=== PATIENT | male | born 1945 | race Caucasian/White ===

== ENCOUNTER 2020-03-26 14:31 | Outpatient (CLI) | payer OTHER, SELFPAY ==
--- NOTE | ~2020-03-26 | XR_ITS ---
EXAMINATION: XR chest 2V DATE: 03/26/2020 14:46 INDICATION: Shortness of breath. TECHNIQUE: Frontal and lateral views of the chest were obtained. COMPARISON: Chest single view 08/18/2019, chest CT 11/18/2018, 05/09/2018 FINDINGS: There is chronic marked elevation of right hemidiaphragm. There are airspace opacities at r ight lung base. Calcified bilateral lung nodules and calcified hilar lymph nodes are consistent with old granulomatous disease. There is a small right pleural effusion. No pneumothorax. The heart size i s normal. IMPRESSION: 1. Chronic marked elevation of right hemidiaphragm. 2. Airspace opacities at right lung base, consistent with atelectasis versus pneumonia. 3. Small right pleural effusion. Reviewed, dictated and finalized at location A. IMPRESSION: 1. Chronic marked elevation of right hemidiaphragm. 2. Airspace opacities at right lung base, consistent with atelectasis versus pn eumonia. 3. Small right pleural effusion.
== END 2020-03-26 14:32 | disposition home or self-care (01) ==
PROVIDERS: PCP Emergency Medicine; Visit Provider Nurse Practitioner Family
DX: R06.02 Shortness of breath (principal); R91.8 Other nonspecific abnormal finding of lung field; J90 Pleural effusion, not elsewhere classified
CPT/HCPCS: 71046

== ENCOUNTER 2020-04-23 16:00 | Outpatient (CLI) | payer OTHER, SELFPAY ==
--- NOTE | ~2020-04-23 | US_ITS ---
EXAMINATION: US art doppler w press LE BI DATE: 04/23/2020 17:02 INDICATION: Peripheral arterial disease. TECHNIQUE: Segmental pressures and plethysmographic and Doppler waveforms of the brachial and lower e xtremity arteries were obtained. COMPARISON: ABIs 11/15/2016 FINDINGS: Right and left brachial artery pressures of 119 mm Hg and 111 mm Hg, respectively, are concordant (no rmal difference <= 30 mmHg). 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 The left high-thigh pressure index is 1.17 (normal > 1. 2). The left ankle-brachial index (BAMBI) is 0.91 (normal >= 0.9-1.0). The left great toe-brachial inde x (TBI) is 0.61 (normal >= 0.65). The left lower extremity segmental pressure gradients are normal (n ormal gradients <= 20-30 mmHg between adjacent levels on the same leg or the same levels on the two l egs). Arterial Doppler waveforms are at least triphasic in common femoral artery, biphasic in superfi cial femoral artery, at least triphasic in popliteal artery, and biphasic at the ankle. IMPRESSION: 1. Mildly decreased left BAMBI and TBI, consistent with arterial occlusive disease. 2. Right above-knee amputation. Reviewed, dictated and finalized at location A. IMPRESSION: 1. Mildly decreased left BAMBI and TBI, consistent with arterial occlusive diseas e. 2. Right above-knee amputation.
== END 2020-04-23 16:01 | disposition home or self-care (01) ==
PROVIDERS: PCP Emergency Medicine; Visit Provider Emergency Medicine
DX: M79.89 Other specified soft tissue disorders (principal)
CPT/HCPCS: 93923

== ENCOUNTER 2020-05-03 16:29 | Outpatient (CLI) | payer OTHER, SELFPAY ==
--- NOTE | ~2020-05-03 | XR_ITS ---
XR chest 2V 05/03/2020 16:45 Indication: Shortness of breath. Cough. COPD. Procedure: AP and lateral views of the chest Comparison: Comparison to multiple prior studies sequentially, with oldest reviewed study dated 12/26. Findings: There is chronic elevation of the right diaphragm. Cardiomediastinal silhouette is stable. There is evidence for chronic granulomatous disease. No acute focal pneumonia, edema or effusion. The re is atherosclerosis. Impression: 1: No acute cardiopulmonary disease. Reviewed, dictated and finalized at location A. Impression: 1: No acute cardiopulmonary disease.
== END 2020-05-03 16:30 | disposition home or self-care (01) ==
PROVIDERS: PCP Emergency Medicine; Visit Provider Nurse Practitioner Family
DX: R06.02 Shortness of breath (principal); R05 Cough
CPT/HCPCS: 71046

== ENCOUNTER 2020-06-03 13:22 | Outpatient (CLI) | payer OTHER, SELFPAY | END 2020-06-03 13:23 | disposition home or self-care (01) | LOC: ANHLAB 13:24 | PROVIDERS: PCP Emergency Medicine; Visit Provider Emergency Medicine | DX: D64.9 Anemia, unspecified (principal) | CPT/HCPCS: 36415; 86850; 86900; 86901 ==

== ENCOUNTER 2020-06-09 07:51 | Outpatient (RCR) | payer OTHER, SELFPAY ==
[2020-06-09] VITALS (10 sets, daily range): BP systolic 137–188; BP diastolic 72–83; PULSE 77–90; RESP 13–18; TEMP 36.3–36.8; O2SAT 93–100
[2020-06-09 08:16] LABS: Hematocrit 27.4 % (42.0-52.0); Hemoglobin 7.7 g/dL (14.0-18.0)
[2020-06-09] MEDS: diphenhydrAMINE HCl CAP 25 MG CAPSULE PO (09:30)
[2020-06-09] MEDS: FUROSEMIDE INJ 40 MG/4 ML VIAL 20 MG IV PUSH ×2 (12:25→15:05)
== END 2020-09-07 23:59 | disposition home or self-care (01) ==
LOC: ANHCPCTRAN 07:51
PROVIDERS: PCP Emergency Medicine; Visit Provider Emergency Medicine
DX: D64.9 Anemia, unspecified (principal)
CPT/HCPCS: 36415; 36430; 85014; 85018; 86850; 86900; 86901; 86923; 96374; A9270; J1940; P9016

== ENCOUNTER 2020-07-01 17:24 | Emergency (ER) | payer OTHER, SELFPAY ==
--- NOTE | ~2020-07-01 | XR_ITS ---
EXAMINATION: XR chest 1V portable INDICATION: Pain after fall TECHNIQUE: Portable AP chest at 1837 hours COMPARISON: 05/03/2020 FINDINGS: Calcified pulmonary nodules are consistent with old granulomatous disease. There is chronic elevation of the right hemidiaphragm. There is subsegmental atelectasis of the right lung base. No p leural effusion or pneumothorax is identified. The cardiomediastinal silhouette is normal. IMPRESSION: 1. No acute cardiopulmonary abnormality. Reviewed, dictated and finalized at location A.
--- NOTE | ~2020-07-01 | XR_ITS ---
EXAMINATION: XR hip RT 2V w AP pelvis INDICATION: Right hip pain TECHNIQUE: AP view of the pelvis and two views of the right hip are obtained. COMPARISON: None available FINDINGS: Bone alignment is normal. There is no fracture. Soft tissue swelling overlies the right hip . There is extensive calcified atherosclerosis. A vascular stent is noted in the left common iliac ar mehul. IMPRESSION: 1. No acute osseous abnormality. Reviewed, dictated and finalized at location A.
--- NOTE | ~2020-07-01 | CT_ITS ---
EXAMINATION: CT cervical spine wo con DATE: 07/01/2020 18:32 INDICATION: Neck pain TECHNIQUE: Computed tomography (CT) of the cervical spine was performed without intravenous contrast. The dose-length product (DLP) was 347.17 mGy-cm. Automated exposure control and iterative reconstruc tion technique were employed. COMPARISON: 11/15/2016 FINDINGS: There has been interval development of 2 mm of retrolisthesis of C2 on C3, 2 mm of anteroli sthesis of C3 on C4, and 5 mm of anterolisthesis of C4 on C5. There is chronic, severe loss of interv ertebral disc space height at C6-7. Moderate loss of intervertebral disc space height at C4-5 and C5- 6 demonstrates interval worsening. No fracture is identified. The vertebral body heights are maintain ed. There are 32 degrees of cervical levoscoliosis with asymmetric loss of intervertebral disc space height on the right at multiple levels. There is advanced facet osteoarthritis on the right at C3-4 a nd C4-5. Moderate uncovertebral joint osteoarthritis is present at multiple levels. There is moderate emphysema. A 1.4 cm fluid density of the right upper back likely reflects a sebaceous cyst. IMPRESSION: 1. No fracture identified. 2. Significant interval worsening of cervical spondylosis with likely degenerative subluxations of th e upper cervical spine. Reviewed, dictated and finalized at location A. IMPRESSION: 1. No fracture identified. 2. Significant interval worsening of cervical spondylosis with likely degenerat mervin subluxations of the upper cervical spine.
--- NOTE | ~2020-07-01 | CT_ITS ---
EXAMINATION: CT brain wo con INDICATION: Head injury COMPARISON: 12/24/2018 TECHNIQUE: Standard unenhanced head CT. The dose-length product (DLP) was 681.00 mGy-cm. The mA was a djusted according to patient size. Iterative reconstruction technique was employed. FINDINGS: There is no acute intraparenchymal hemorrhage. No evidence of mass lesion. No evidence of a cute infarction. There is mild periventricular and subcortical hypodensity probably related to small vessel ischemic disease. There is moderate prominence of the sulci and ventricles related to cerebral atrophy. Intracranial calcified cerebral atherosclerosis is noted. There are no extra-axial collecti ons. There is no mass effect or midline shift. Changes in the globes are likely from ocular lens surg [place]. There is mild mucosal thickening of the paranasal sinuses. IMPRESSION: 1. No acute intracranial abnormality. 2. Age related findings. Reviewed, dictated and finalized at location A.
[2020-07-01 17:30] VITALS: BP 156/72; PULSE 81; RESP 17; TEMP 36.8; O2SAT 98
--- NOTE | 2020-07-01 17:46 | ECG_ITS ---
Measurements Intervals [place] Rate: 72 P: 17 MT: 128 QRS: 41 QRSD: 102 T: 70 QT: 421 QTc: 462 Interpretive Statements SINUS RHYTHM BORDERLINE ST-T WAVE ABNORMALITY- HIGH LATERAL LEADS BASELINE ARTIFACT- I, II, III, AVR, AVL, AVF, V1-V6 BORDERLINE ECG Electronically Signed On 07-01-2020 18:48:29 CDT by Pierre Craven D.O.
--- NOTE | 2020-07-01 17:58 | ED.GENADULT ---
HPI - General Adult General Chief complaint: Extremity Injury, Lower Stated complaint: fall Time Seen by Provider: 07/01/20 17:29 Source: patient and family Mode of arrival: ambulatory Limitations: altered mental status History of Present Illness HPI narrative: Patient is a 75-year-old male who presents to emergency department for evaluation of fall out of his wheelchair presenting with large hematoma to the right hip patient on arrival is alert and oriented to person and place but is confused as to the year and month. Patient presents with who notes that he has been having some more confusion of late had some recent medication changes by neurology at [facility] who thought maybe it was contributing to his confusion. Patient also had recent transfusion for unknown reason. Patient on arrival to emergency department notes only right hip pain. Patient's did give him a Xanax today and notes that he has been sleeping throughout the day off and on and had difficulty sleeping at night of late. Family denies any vomiting diarrhea or urinary symptoms but does note that the athlete marketing agent called and an antibiotic for a cough on Sunday. Related Data Home Medications Medication Instructions Recorded Confirmed acetaminophen 325 mg capsule 325 mg PO Q6H PRN 08/26/19 03/26/20 albuterol sulfate 90 mcg/actuation 1 inhalation INHALATION Q4H 08/26/19 03/26/20 aerosol inhaler ascorbic acid (vitamin C) 500 mg mg PO 08/26/19 03/26/20 capsule cholecalciferol (vitamin D3) 50 2,000 unit PO DAILY 08/26/19 03/26/20 mcg (2,000 unit) tablet ferrous sulfate 324 mg (65 mg 324 mg PO BID 08/26/19 03/26/20 iron) tablet,delayed release multivitamin with iron 1 tablet PO DAILY 08/26/19 03/26/20 zinc gluconate 50 mg tablet 50 mg PO DAILY 08/26/19 03/26/20 albuterol sulfate See Rx Instructions .ROUTE .COMPLEX 10/15/19 03/26/20 guaifenesin 600 mg tablet, 600 mg PO BID 11/28/19 03/26/20 extended release 12 hr Allergies Allergy/AdvReac Type Severity Reaction Status Date / Time morphine AdvReac Severe HALLUCINATIONS, Verified 07/01/20 17:29 AGITATED Review of Systems Review of Systems: All systems reviewed & are unremarkable except as noted in HPI and below PMFSH Past Medical History Medical History Amputation of right lower extremity below knee COPD (chronic obstructive pulmonary disease) History of right inguinal hernia HLD (hyperlipidemia) HTN (hypertension) Surgical History Surgical History History of hernia repair Social History Social History Smoking packs per day: 1 Smoking cigarettes per day: 20.0 Years smoked: 55 Smoking pack-years: 55.00 Smoking status: Former smoker Tobacco type: cigarettes Second hand tobacco smoke exposure: No Smoking end date: 12/06/16 Alcohol intake: current Gender identity (if verbalized by the patient): Male Exam Narrative: Exam Narrative: GENERAL: Well-appearing, well-nourished, and in no acute distress. HEAD: Normocephalic, atraumatic. EYES: PERRLA and EOMI. ENT: Nares clear, no rhinorrhea or epistaxis. Mucous membranes moist. Oropharynx without tonsillar hypertrophy exudate or other lesions. NECK: Supple. No adenopathy or masses. CHEST: Clear to auscultation. No respiratory distress. No wheezes rales or rhonchi HEART: Regular rate and rhythm. No murmur heard. Normal peripheral pulses. ABDOMEN: Soft, nontender, nondistended EXTREMITIES: Normal range of motion. No edema. Hematoma to the right hip which is moderate size. No cervical thoracic or lumbar tenderness. SKIN: Warm, dry, no rash. NEURO: No focal deficits cranial nerves II through XII grossly intact PSYCH: Normal mood and affect. Course Course Emergency Course: Patient in the room at this time resting comfortably alert and
[2020-07-01 18:16] LABS: Basophils Absolute Auto 0.1 K/mm3 (0.0-0.1); Basophils Percent Auto 1.1 % (0.2-1.2); Eosinophils Absolute Auto 0.4 K/mm3 (0-0.3); Eosinophils Percent Auto 4.6 % (0-4.4); Hematocrit 38.1 % (42.0-52.0); Hemoglobin 11.6 g/dL (14.0-18.0); Immature Granulocyte Absolute 0.05 K/mm3 (0.00-0.031); Immature Granulocyte Percent A 0.5 % (0-0.5); Lymphocytes Absolute Auto 1.45 K/mm3 (0.9-3.2); Lymphocytes Percent Auto 15.4 % (18.3-44.2); Mean Corpuscular HGB Conc 30.4 g/dl (32-36); Mean Corpuscular Hemoglobin 25.4 pg (26-34); Mean Corpuscular Volume 83.4 fl (80-100); Mean Platelet Volume 12.3 fl (7.4-10.4); Monocytes Absolute Auto 0.8 K/mm3 (0.1-0.6); Monocytes Percent Auto 8.4 % (2.6-8.5); Neutrophils Absolute Auto 6.6 K/mm3 (1.3-6.7); Platelet Count Result 376 k/mm3 (150-375); Red Blood Count 4.57 M/mm3 (4.6-6.20); Red Cell Distribution Width 21.2 % (11.5-14.5); White Blood Count 9.4 K/mm3 (4.5-10.0)
[2020-07-01 18:20] LABS: Add Urine Microscopic? YES; Appearance Urine Clear (Clear); Bilirubin Urine Negative (Negative); Blood Urine Negative (Negative); Color Urine Yellow (Yellow); Glucose Urine UA Negative (Negative); Ketones Urine Negative (Negative); Leukocyte Esterase Ur Negative LEU/UL (Negative); Mucus Urine Rare /lpf; Nitrate Urine Negative (Negative); Protein Urine Negative (Negative); RBC Urine 0-2 /hpf (0-2); Specific Grav Ur 1.012 (1.001-1.035); Squamous Epithelial Cell Urine Rare /hpf (Few); Urobilinogen Urine Negative mg/dL (<2.0); WBC Urine 0-3 /hpf
[2020-07-01] MEDS: SODIUM CHLORIDE 0.9% IV 500 ML 999 ML IV CONT (18:20)
[2020-07-01 18:25] LABS: INR 1.1; Prothrombin Time 13.5 Seconds (11.1-14.7)
[2020-07-01 18:26] LABS: Partial Thromboplastin Time 29.7 SECONDS (22.3-36.8)
[2020-07-01 18:29] LABS: Lactic Acid Reflex 0.7 mmol/L (0.7-2.1)
[2020-07-01 18:34] LABS: Alanine Aminotransferase 20 U/L (4-50); Albumin Level 3.8 g/dL (3.5-5.1); Alkaline Phosphatase 76 U/L (38-126); Anion Gap 3 mmol/L (8-16); Aspartate Amino Transferase 26 U/L (17-59); Bilirubin,Total 0.2 mg/dL (0.2-1.3); Blood Urea Nitrogen 8 mg/dL (9-20); CRP < 0.5 mg/dL (<1.0); Calcium 9.7 mg/dL (8.4-10.2); Carbon Dioxide 28 mmol/L (22-30); Chloride 103 mmol/L (98-107); Estimated CRCL calculation 61 ml/min; Estimated Glomerular Filt Rate > 60; Glucose 91 mg/dL (75-110); Lipase 53 U/L (23-300); Potassium 3.8 mmol/L (3.4-5.0); Sodium 134 mmol/L (137-145)
[2020-07-01 18:41] LABS: Troponin I < 0.012 ng/mL (0.000-0.034)
[2020-07-01 18:57] VITALS: BP 136/88; PULSE 74; RESP 17; O2SAT 99
[2020-07-01 20:29] VITALS: BP 138/84; PULSE 92; RESP 16; O2SAT 97
== END 2020-07-01 21:41 | disposition home or self-care (01) ==
PROVIDERS: Emergency Medicine Emergency Medical Services; Emergency Provider Emergency Medicine; PCP Emergency Medicine
DX: S70.01XA Contusion of right hip, initial encounter (principal); J44.9 Chronic obstructive pulmonary disease, unspecified; E78.5 Hyperlipidemia, unspecified; I10 Essential (primary) hypertension; Z89.511 Acquired absence of right leg below knee; Z87.891 Personal history of nicotine dependence; W05.0XXA Fall from non-moving wheelchair, initial encounter
CPT/HCPCS: 36415; 51701; 70450; 71045; 72125; 73502; 80053; 81001; 83605; 83690; 84484; 85025; 85610; 85730; 86140; 87040; 93005; 96365; 99284; J0131; J7040

== ENCOUNTER 2020-09-28 14:17 | Emergency (ER) | payer OTHER, SELFPAY ==
[2020-09-28] VITALS (12 sets, daily range): BP systolic 105–185; BP diastolic 32–81; PULSE 62–97; RESP 16–21; TEMP 36.5; O2SAT 94–100
--- NOTE | ~2020-09-28 | US_ITS ---
EXAMINATION:US venous doppler LE LT INDICATION:Left leg swelling TECHNIQUE: Multiple grayscale, color flow and Doppler images of the left lower extremity deep venous systems were obtained and reviewed. COMPARISON:11/22/2016 FINDINGS: The common femoral, superficial femoral and popliteal veins demonstrate normal respiratory variation, augmentation and compressibility. Color flow is also seen within the posterior tibial, gr eater saphenous and profunda veins. Peroneal vein not well visualized. IMPRESSION: 1: No lower extremity deep venous thrombosis. Reviewed, dictated and finalized at location A. COUNSELOR
--- NOTE | ~2020-09-28 | XR_ITS ---
EXAMINATION: XR chest 2V EXAM DATE: 09/28/2020 16:12 INDICATION: Swelling. History of CHF. TECHNIQUE: Frontal and lateral projections of the chest obtained and reviewed. Comparison is made to prior examination from 09/28/2020. FINDINGS: Chronic right hemidiaphragm elevation with adjacent atelectasis. Chronic left basilar gran ulomas. The lungs are otherwise clear. There are no pleural effusions. The cardiomediastinal silhou ette is within normal limits. There is no pneumothorax suspected. The bones and soft tissues are un remarkable. IMPRESSION: Chronic thoracic findings as above. Reviewed, dictated and finalized at location B. ISITION APPROVER
--- NOTE | 2020-09-28 14:41 | ECG_ITS ---
Measurements Intervals [place] Rate: 68 P: 46 WI: 144 QRS: 57 QRSD: 96 T: 72 QT: 405 QTc: 433 Interpretive Statements SINUS RHYTHM BASELINE ARTIFACT- I, II, AVR, AVL, AVF, V4-V6 BORDERLINE ECG Electronically Signed On 09-28-2020 16:17:58 ASSISTANT INFANT TODDLER TEACHER by Pierre Craven D.O.
[2020-09-28 15:09] LABS: Basophils Absolute Auto 0.1 K/mm3 (0.0-0.1); Basophils Percent Auto 1.4 % (0.2-1.2); Eosinophils Absolute Auto 0.3 K/mm3 (0-0.3); Eosinophils Percent Auto 3.6 % (0-4.4); Hemoglobin 11.3 g/dL (14.0-18.0); Immature Granulocyte Absolute 0.03 K/mm3 (0.00-0.031); Immature Granulocyte Percent A 0.3 % (0-0.5); Lymphocytes Absolute Auto 1.66 K/mm3 (0.9-3.2); Lymphocytes Percent Auto 17.4 % (18.3-44.2); Mean Corpuscular HGB Conc 30.5 g/dl (32-36); Mean Corpuscular Hemoglobin 28.1 pg (26-34); Mean Platelet Volume 10.9 fl (7.4-10.4); Monocytes Absolute Auto 1.1 K/mm3 (0.1-0.6); Monocytes Percent Auto 11.3 % (2.6-8.5); Neutrophils Absolute Auto 6.3 K/mm3 (1.3-6.7); Platelet Count Result 350 k/mm3 (150-375); Red Blood Count 4.02 M/mm3 (4.6-6.20); Red Cell Distribution Width 14.8 % (11.5-14.5); White Blood Count 9.6 K/mm3 (4.5-10.0)
[2020-09-28 15:16] LABS: INR 1.1; Prothrombin Time 14.4 Seconds (11.1-14.7)
[2020-09-28 15:17] LABS: Partial Thromboplastin Time 28.6 SECONDS (22.3-36.8)
[2020-09-28 15:18] LABS: Anion Gap 6 mmol/L (8-16); Blood Urea Nitrogen 13 mg/dL (9-20); Carbon Dioxide 30 mmol/L (22-30); Chloride 103 mmol/L (98-107); Estimated CRCL calculation 55 ml/min; Estimated Glomerular Filt Rate > 60; Glucose 92 mg/dL (75-110); Potassium 3.9 mmol/L (3.4-5.0); Sodium 139 mmol/L (137-145)
[2020-09-28 15:31] LABS: NT Pro B Type Natriuretic Pept 63 PG/ML (5-100); Troponin I < 0.012 ng/mL (0.000-0.034)
--- NOTE | 2020-09-28 15:51 | ED.GENADULT ---
HPI - General Adult General Chief complaint: Extremity Problem,Nontraumatic Stated complaint: Swelling L leg Time Seen by Provider: 09/28/20 14:37 Source: patient History of Present Illness HPI narrative: Patient is a 75 y/o complaining of increasing left leg swelling for last 2 weeks. He has previous right AKA. There is no known alleviating or exacerbating factor. He has no chest pain. He has chronic SOB due to COPD. He is on home O2. Related Data Home Medications Medication Instructions Recorded Confirmed acetaminophen 325 mg capsule 325 mg PO Q6H PRN 08/26/19 03/26/20 albuterol sulfate 90 mcg/actuation 1 inhalation INHALATION Q4H 08/26/19 03/26/20 aerosol inhaler ascorbic acid (vitamin C) 500 mg mg PO 08/26/19 03/26/20 capsule cholecalciferol (vitamin D3) 50 2,000 unit PO DAILY 08/26/19 03/26/20 mcg (2,000 unit) tablet ferrous sulfate 324 mg (65 mg 324 mg PO BID 08/26/19 03/26/20 iron) tablet,delayed release multivitamin with iron 1 tablet PO DAILY 08/26/19 03/26/20 zinc gluconate 50 mg tablet 50 mg PO DAILY 08/26/19 03/26/20 albuterol sulfate See Rx Instructions .ROUTE .COMPLEX 10/15/19 03/26/20 olanzapine 2.5 mg PO HS 09/28/20 Allergies Allergy/AdvReac Type Severity Reaction Status Date / Time morphine AdvReac Severe HALLUCINATIONS, Verified 07/01/20 17:29 AGITATED Review of Systems Constitutional: Constitutional: Denies chills, Denies fever(s), Denies headache(s) and Denies weakness Eyes: Eyes: Denies blurry vision ENT: Denies headache(s) and Denies neck pain Cardiovascular: Cardiovascular: Denies chest pain, Reports leg edema and Reports dyspnea Respiratory: Respiratory: Denies cough and Reports dyspnea Gastrointestinal: Gastrointestinal: Denies abdominal pain, Denies diarrhea, Denies nausea and Denies vomiting Genitourinary: Genitourinary: Denies hematuria and Denies dysuria Musculoskeletal: Musculoskeletal: Denies back pain and Denies neck pain Neurologic: Denies headache(s) and Denies weakness [facility] Past Medical History Medical History (Updated 09/28/20 @ 17:58 by Sofía Mendoza MD) Amputation of right lower extremity below knee COPD (chronic obstructive pulmonary disease) History of right inguinal hernia HLD (hyperlipidemia) HTN (hypertension) Surgical History Surgical History History of hernia repair Family History Family History Sibling Colon cancer Father , blood clot Blood clot associated with vein wall inflammation Mother Cerebrovascular accident Diabetes mellitus Peripheral vascular disease Sibling , peripheral vascular disease Peripheral vascular disease Mother Patient's mother is , Onset Age: 74 Diabetes mellitus Father Patient's father is , Onset Age: 76 Sibling Diabetes mellitus Carcinoma of colon Social History Social History Smoking packs per day: 1 Smoking cigarettes per day: 20.0 Years smoked: 55 Smoking pack-years: 55.00 Smoking status: Former smoker Tobacco type: cigarettes Second hand tobacco smoke exposure: No Smoking end date: 12/06/16 Alcohol intake: current Gender identity (if verbalized by the patient): Male Exam Const: General: no acute distress and well developed Orientation/consciousness: oriented to person, oriented to place, oriented to time and patient oriented x3 HENMT: Head: normocephalic Ears: external ears normal General nose exam: Normal external nose present Eyes: General: appearance normal, both eyes and all related structures Conjunctivae: conjunctivae normal Neck: Neck: normal visual inspection and full ROM Chest: Chest palpation & inspection: normal inspection of the chest and no tenderness Resp: Effort & Inspection: normal respiratory effort Auscultati
[2020-09-28] MEDS: FUROSEMIDE INJ 40 MG/4 ML VIAL 20 MG IV PUSH (16:31)
== END 2020-09-28 18:23 | disposition home or self-care (01) ==
PROVIDERS: Emergency Provider Emergency Medicine; PCP Emergency Medicine
DX: M79.89 Other specified soft tissue disorders (principal); J44.9 Chronic obstructive pulmonary disease, unspecified; Z87.891 Personal history of nicotine dependence; I10 Essential (primary) hypertension; E78.5 Hyperlipidemia, unspecified; Z89.511 Acquired absence of right leg below knee
CPT/HCPCS: 36415; 71046; 80048; 83880; 84484; 85025; 85610; 85730; 93005; 93971; 96374; 99284; J1940

== ENCOUNTER 2021-05-02 14:30 | Emergency (ER) | payer OTHER, SELFPAY ==
--- NOTE | 2021-05-02 15:06 | PC.NURSE ---
pt no longer wanted to stay, stated that his nose had stopped bleeding, agreed to return if it started once more.
== END 2021-05-03 05:32 | disposition left against medical advice (07) ==
DX: R04.0 Epistaxis (principal)
CPT/HCPCS: 99199

== ENCOUNTER 2021-06-21 16:05 | Emergency (ER) | payer OTHER, SELFPAY ==
[2021-06-21 16:17] VITALS: BP 88/46; PULSE 97; RESP 16; TEMP 36.2; O2SAT 93
--- NOTE | 2021-06-21 16:58 | ED.GENADULT ---
HPI - General Adult General Chief complaint: Epistaxis Stated complaint: Nose Bleed Time Seen by Provider: 06/21/21 16:24 Source: patient History of Present Illness HPI narrative: Patient is a 76 y/o male complaining of moderate to severe nose bleeding starting 3-4 hours ago. He had large amount of bright red blood from right side. Later the bleeding moved to left side. There is no known alleviating or exacerbating factor. He has no pain. He denies any trauma to nose. He is on Plavix Related Data Home Medications Medication Instructions Recorded Confirmed acetaminophen 325 mg capsule 325 mg PO Q6H PRN 08/26/19 05/06/21 ascorbic acid (vitamin C) 500 mg mg PO 08/26/19 05/06/21 capsule cholecalciferol (vitamin D3) 50 2,000 unit PO DAILY 08/26/19 05/06/21 mcg (2,000 unit) tablet ferrous sulfate 324 mg (65 mg 324 mg PO BID 08/26/19 05/06/21 iron) tablet,delayed release multivitamin with iron 1 tablet PO DAILY 08/26/19 05/06/21 zinc gluconate 50 mg tablet 50 mg PO DAILY 08/26/19 05/06/21 albuterol sulfate See Rx Instructions .ROUTE .COMPLEX 10/15/19 05/06/21 Allergies Allergy/AdvReac Type Severity Reaction Status Date / Time morphine AdvReac Severe HALLUCINATIONS, Verified 06/21/21 16:30 AGITATED Review of Systems Constitutional: Constitutional: Denies chills, Denies fever(s), Denies headache(s) and Denies weakness Eyes: Eyes: Denies blurry vision ENT: Reports as per HPI, Denies headache(s), Reports epistaxis and Denies neck pain Cardiovascular: Cardiovascular: Denies chest pain and Denies dyspnea Respiratory: Respiratory: Denies cough and Denies dyspnea Gastrointestinal: Gastrointestinal: Denies abdominal pain, Denies diarrhea, Denies nausea and Denies vomiting Genitourinary: Genitourinary: Denies hematuria and Denies dysuria Musculoskeletal: Musculoskeletal: Denies back pain and Denies neck pain Neurologic: Denies headache(s) and Denies weakness PMFSH Past Medical History Medical History (Updated 06/21/21 @ 19:57 by Sofía Mendoza MD) Amputation of right lower extremity below knee COPD (chronic obstructive pulmonary disease) History of right inguinal hernia HLD (hyperlipidemia) HTN (hypertension) Surgical History Surgical History History of hernia repair Family History Family History Sibling Colon cancer Father , blood clot Blood clot associated with vein wall inflammation Mother Cerebrovascular accident Diabetes mellitus Peripheral vascular disease Sibling , peripheral vascular disease Peripheral vascular disease Mother Patient's mother is , Onset Age: 74 Diabetes mellitus Father Patient's father is , Onset Age: 76 Sibling Diabetes mellitus Carcinoma of colon Social History Social History Smoking packs per day: 1 Smoking cigarettes per day: 20.0 Years smoked: 55 Smoking pack-years: 55.00 Smoking status: Former smoker Tobacco type: cigarettes Second hand tobacco smoke exposure: No Smoking end date: 12/06/16 Alcohol intake: current Gender identity (if verbalized by the patient): Male Exam Const: General: no acute distress and well developed Orientation/consciousness: oriented to person, oriented to place, oriented to time and patient oriented x3 HENMT: Head: normocephalic Ears: external ears normal General nose exam: Normal external nose present and Other nasal findings present (some dry blood both sides, no active bleeding) Eyes: General: appearance normal, both eyes and all related structures Conjunctivae: conjunctivae normal Neck: Neck: normal visual inspection and full ROM Chest: Chest palpation & inspection: normal inspection of the chest and no tenderness Resp: Effort & Inspection: normal respiratory effor
[2021-06-21 17:35] LABS: Basophils Absolute Auto 0.1 K/mm3 (0.0-0.1); Basophils Percent Auto 0.8 % (0.2-1.2); Eosinophils Absolute Auto 0.1 K/mm3 (0-0.3); Eosinophils Percent Auto 0.7 % (0-4.4); Hematocrit 45.7 % (42.0-52.0); Hemoglobin 14.2 g/dL (14.0-18.0); Immature Granulocyte Absolute 0.05 K/mm3 (0.00-0.031); Immature Granulocyte Percent A 0.4 % (0-0.5); Lymphocytes Absolute Auto 0.96 K/mm3 (0.9-3.2); Lymphocytes Percent Auto 8.6 % (18.3-44.2); Mean Corpuscular HGB Conc 31.1 g/dl (32-36); Mean Corpuscular Hemoglobin 27.8 pg (26-34); Mean Corpuscular Volume 89.4 fl (80-100); Mean Platelet Volume 12.3 fl (7.4-10.4); Monocytes Absolute Auto 0.8 K/mm3 (0.1-0.6); Monocytes Percent Auto 6.8 % (2.6-8.5); Neutrophils Absolute Auto 9.2 K/mm3 (1.3-6.7); Neutrophils Percent Auto 82.7 % (45.5-73.1); Platelet Count Result 261 k/mm3 (150-375); Red Blood Count 5.11 M/mm3 (4.6-6.20); Red Cell Distribution Width 15.1 % (11.5-14.5); White Blood Count 11.2 K/mm3 (4.5-10.0)
[2021-06-21 17:45] LABS: Prothrombin Time 12.7 Seconds (11.1-14.7)
[2021-06-21 17:46] LABS: Partial Thromboplastin Time 30.3 SECONDS (22.3-36.8)
[2021-06-21 17:54] LABS: Alanine Aminotransferase 26 U/L (4-50); Alkaline Phosphatase 94 U/L (38-126); Anion Gap 9 mmol/L (8-16); Aspartate Amino Transferase 26 U/L (17-59); Bilirubin,Total 0.3 mg/dL (0.2-1.3); Blood Urea Nitrogen 15 mg/dL (9-20); Calcium 9.6 mg/dL (8.4-10.2); Carbon Dioxide 26 mmol/L (22-30); Chloride 106 mmol/L (98-107); Estimated Glomerular Filt Rate > 60; Glucose 107 mg/dL (65-110); Potassium 4.4 mmol/L (3.4-5.0); Sodium 141 mmol/L (137-145)
[2021-06-21 18:11] VITALS: BP 80/46; PULSE 80; RESP 18; O2SAT 92
[2021-06-21] MEDS: SODIUM CHLORIDE 0.9% IV 1,000 ML 999 ML IV CONT (18:21)
[2021-06-21 18:45] VITALS: BP 96/53; PULSE 72; RESP 18; O2SAT 93
[2021-06-21 19:59] VITALS: BP 125/82; PULSE 75; RESP 14; O2SAT 94
== END 2021-06-21 20:05 | disposition home or self-care (01) ==
PROVIDERS: Emergency Provider Emergency Medicine; PCP Emergency Medicine
DX: R04.0 Epistaxis (principal); J44.9 Chronic obstructive pulmonary disease, unspecified; E78.5 Hyperlipidemia, unspecified; I10 Essential (primary) hypertension; Z87.891 Personal history of nicotine dependence
CPT/HCPCS: 36415; 80053; 85025; 85610; 85730; 96360; 99283; J7030

== ENCOUNTER 2021-07-01 08:46 | Outpatient (CLI) | payer OTHER, SELFPAY ==
--- NOTE | ~2021-07-01 | CT_ITS ---
EXAMINATION: CT lung screening DATE: 07/01/2021 09:07 INDICATION: Former smoker TECHNIQUE: Computed tomography (CT) of the chest was performed without intravenous contrast. The dose -length product was 75.96 mGy-cm. Automated exposure control and iterative reconstruction technique w ere employed. COMPARISON: CT dated 11/18/2018 FINDINGS: There is chronic right lower lobe atelectasis, increased from prior study. No significant p leural or pericardial effusion. Elevated right diaphragm. Heart size is normal. There is atherosclero sis of the aorta and coronary arteries. No endobronchial lesions. There are a few scattered calcified granulomas of the lung parenchyma. There are a few small apical nodules measuring 2 mm or less. IMPRESSION: 1. Lung-RADS category 2: Benign appearance or behavior. Continue annual screening with noncontrast lo w-dose chest CT in 12 months. 2: Increasing right lower lobe atelectasis. Cannot exclude underlying endobronchial lesion. Reviewed, dictated and finalized at location A. IMPRESSION: 1. Lung-RADS category 2: Benign appearance or behavior. Continue annual screeni ng with noncontrast low-dose chest CT in 12 months. 2: Increasing right lower lobe atelectasis. Cannot exclude underlying endobronc hial lesion.
== END 2021-07-01 08:47 | disposition home or self-care (01) ==
LOC: ANHIMG 08:49
PROVIDERS: PCP Emergency Medicine; Visit Provider Nurse Practitioner Family
DX: Z12.2 Encounter for screening for malignant neoplasm of respiratory organs (principal); Z87.891 Personal history of nicotine dependence; J98.11 Atelectasis
CPT/HCPCS: 71271

== ENCOUNTER 2022-06-16 12:21 | Outpatient (CLI) | payer OTHER, SELFPAY ==
[2022-06-16 13:00] VITALS: PULSE 80; O2SAT 87
[2022-06-16 13:01] VITALS: O2SAT 87
[2022-06-16 13:02] VITALS: O2SAT 91
[2022-06-16 13:03] VITALS: PULSE 93; O2SAT 90
[2022-06-16 13:15] VITALS: PULSE 79; O2SAT 93
--- NOTE | 2022-06-16 13:47 | HOMEO2EVAL ---
Evaluation was performed at [facility] Home Oxygen Evaluation RC: Home Oxygen (O2) Evaluation Start: 06/16/22 13:45 Freq: Status: Active Protocol: RPE Activity Type Activity Date Activity User E-sign Co-sign Detail Recorded Client Recorded Date Recorded By Document 06/16/22 13:00 RENNY [email or web address] 06/16/22 13:47 RENNY Document 06/16/22 13:01 RENNY [email or web address] 06/16/22 13:47 RENNY Document 06/16/22 13:02 RENNY [email or web address] 06/16/22 13:47 RENNY Document 06/16/22 13:03 RENNY [email or web address] 06/16/22 13:47 RENNY Document 06/16/22 13:15 RENNY [email or web address] 06/16/22 13:47 RENNY 06/16/22 06/16/22 06/16/22 13:00 13:01 13:02 Home O2 Evaluation Test Phase Resting Resting Resting Oxygen Delivery Room Air Nasal Cannula Nasal Cannula Oxygen Flow Rate (L/min) 1 2 Pulse Oximetry (90-100 %) 87 L 87 L 91 Pulse Rate (60-100 beats/min) 80 Home Oxygen Evaluation Comments Treatment Charges O2 Evaluation - Outpatient 06/16/22 06/16/22 13:03 13:15 Home O2 Evaluation Test Phase Exercise Resting Oxygen Delivery Nasal Cannula Nasal Cannula Oxygen Flow Rate (L/min) 2 2 Pulse Oximetry (90-100 %) 90 93 Pulse Rate (60-100 beats/min) 93 79 Home Oxygen Evaluation Comments Pt requires 2 L HOME O2 with rest and activity/ exertion Treatment Charges
--- NOTE | 2022-06-16 13:47 | PCRCNOTE ---
Home o2 eval faxed to office staff.
== END 2022-06-16 12:22 | disposition home or self-care (01) ==
PROVIDERS: PCP Emergency Medicine; Visit Provider Nurse Practitioner Family
DX: R06.09 Other forms of dyspnea (principal)
CPT/HCPCS: 94618

== ENCOUNTER 2022-12-22 15:37 | Outpatient (CLI) | payer OTHER, SELFPAY ==
--- NOTE | ~2022-12-22 | XR_ITS ---
XR chest 2V 12/22/2022 15:58 Indication: Chronic cough Procedure: AP and lateral views of the chest Comparison: Comparison to multiple prior studies sequentially, with oldest reviewed study dated 03/26. Findings: Chronic elevation of the right diaphragm, suspicious for phrenic nerve paralysis. There is chronic granulomatous disease and scarring of the left lung base. Cardiomegaly. No acute focal pneumo hay, edema, effusion or pneumothorax. There are multiple mild thoracic compression deformities, likel y chronic osteopenia. Impression: 1: No acute cardiopulmonary disease. Reviewed, dictated and finalized at location A. Impression: 1: No acute cardiopulmonary disease.
== END 2022-12-22 15:38 | disposition home or self-care (01) ==
PROVIDERS: PCP Emergency Medicine; Visit Provider Nurse Practitioner Family
DX: R05.8 Other specified cough (principal); Z87.01 Personal history of pneumonia (recurrent)
CPT/HCPCS: 71046

== ENCOUNTER 2023-08-04 09:59 | Inpatient (IN) | payer OTHER, SELFPAY ==
[2023-08-04] VITALS (12 sets, daily range): BP systolic 148–167; BP diastolic 67–100; PULSE 94–111; RESP 16–32; TEMP 36.9–37.3; O2SAT 94–100; BMI 22.1
--- NOTE | ~2023-08-04 | XR_ITS ---
EXAMINATION: XR chest 1V portable DATE: 08/13/2023 08:42 INDICATION: Right pleural effusion TECHNIQUE: frontal view of the chest was obtained. COMPARISON: Chest radiograph and CT dated 08/09/2023 FINDINGS: Decreased right lung volume with gradient of basilar predominant diffuse hazy airspace opacities and blunting of the right costophrenic angle consistent with a persistent small right pleural effusion an d associated atelectasis versus pneumonia. Calcified nodules in the bilateral lower lungs and calcifi ed bilateral hilar and mediastinal lymph nodes consistent with old granulomatous disease. No pneumoth orax or left-sided pleural effusion. Heart size is normal. IMPRESSION: 1. Unchanged small right pleural effusion with associated basilar atelectasis and/or pneumonia. Reviewed, dictated and finalized at location A. [employer] IMPRESSION: 1. Unchanged small right pleural effusion with associated basilar atelectasis a nd/or pneumonia.
--- NOTE | ~2023-08-04 | CT_ITS ---
EXAMINATION: CTA chest PE abdomen pel DATE: 08/09/2023 17:22 CDT INDICATION: Evaluate for pulmonary embolism. TECHNIQUE: Computed tomographic angiography (CTA) of the chest, abdomen, and pelvis was performed wit h 100 mL Omnipaque-350 intravenous contrast. The dose-length product was 1407.88 mGy-cm. Maximum inte nsity projection 3D-reconstructions of the aorta and other arteries were constructed by the technolog ist on a separate workstation. Automated exposure control and iterative reconstruction technique were employed. COMPARISON: None. FINDINGS: CHEST CTA: No large central pulmonary embolism. Evaluation of the peripheral pulmonary arteries limited by motio n artifact. Bilateral pleural effusions, right greater than left. Examination limited by motion. Ther e is atherosclerosis of the aorta without aneurysm or dissection. There is mediastinal shift to the l eft, consistent with left thoracic volume loss. There is right lower lobe collapse. There is left low er lobe airspace disease which may represent atelectasis or pneumonia. There is occlusion of the righ t lower lobe bronchus. ABDOMEN AND PELVIS CTA: Cardiomegaly. Small pericardial effusion. There are calcified granulomas of the liver and spleen. The pancreas, adrenal glands are unremarkable. There are small subcentimeter hypodensities of the kidney s, too small to characterize. There is heterogeneous hypoechoic vascularity in the right kidney later ally. Cannot exclude pyelonephritis. Enlarged prostate gland. Mild bladder wall thickening. Nonobstru ctive bowel gas pattern. Diffuse atherosclerosis without aneurysm. Gallbladder is present. Study limi severiano by motion artifact. No significant lymphadenopathy. Severe thoracic and lumbar spondylosis with s coliosis. IMPRESSION: 1. No large central pulmonary embolism. Evaluation of the peripheral pulmonary arteries limited by mo tion artifact. 2: Bilateral pleural effusions, right greater than left. There is right lower lobe collapse with med iastinal shift to the left. Left lower lobe airspace disease may represent atelectasis or pneumonia. 3: Cardiomegaly with trace pericardial effusion. 4: Geographic hypodensity right kidney. Cannot exclude pyelonephritis. 5: Enlarged prostate gland. Mild bladder wall thickening, possibly due to outlet obstruction. Reviewed, dictated and finalized at location A. IMPRESSION: 1. No large central pulmonary embolism. Evaluation of the peripheral pulmonary arteries limited by motion artifact. 2: Bilateral pleural effusions, right greater than left. There is right lower lobe collapse with mediastinal shift to the left. Left lower lobe airspace dise ase may represent atelectasis or pneumonia. 3: Cardiomegaly with trace pericardial effusion. 4: Geographic hypodensity right kidney. Cannot exclude pyelonephritis. 5: Enlarged prostate gland. Mild bladder wall thickening, possibly due to outl et obstruction.
--- NOTE | ~2023-08-04 | US_ITS ---
EXAMINATION: US venous doppler UE DATE: 08/10/2023 09:46 INDICATION: Shortness of breath TECHNIQUE: Grayscale images without and with compression and Doppler images of the bilateral upper ex tremity veins were obtained. COMPARISON: None. FINDINGS: The right internal jugular vein, subclavian vein, axillary vein, brachial vein, basilic vein, radial vein, and ulnar vein are patent. The right cephalic vein is not identified. The left internal jugular vein, subclavian vein, axillary vein, brachial vein, basilic vein, radial v ein, and ulnar vein are patent. The left cephalic vein is not definitively identified. IMPRESSION: 1. Patent bilateral upper extremity veins. No evidence of venous thrombosis. Reviewed, dictated and finalized at location A.
--- NOTE | ~2023-08-04 | XR_ITS ---
XR chest 1V portable DATE: 08/04/2023 10:35 INDICATION: Right chest pain, productive cough. History of COPD. TECHNIQUE: 2 portable upright AP chest views on 07/27/2023 at 1028 and 1029 hours COMPARISON: 12/22/2022 AP and lateral chest FINDINGS: There is chronic prominent elevation of the right diaphragm. There are patchy infiltrates and/or atelectasis in both mid and particularly lower lung zones. No pleural effusion is noted. Borderline heart size. Pulmonary vascular redistribution, pulmonary interstitial prominence, suggesti ng congestive change. Prominent aortic arch and some descending thoracic aortic calcification. Diffuse osteopenia. Bilateral rotator cuff atrophy. IMPRESSION: Cardiomegaly and suggestion of congestive change Bilateral mid and particularly lower lung infiltrate and/or atelectasis. Pulmonary edema and pneumoni a should be considered. Aortic atherosclerosis Osteopenia Reviewed, dictated and finalized at location A. IMPRESSION: Cardiomegaly and suggestion of congestive change Bilateral mid and particularly lower lung infiltrate and/or atelectasis. Pulmon adama edema and pneumonia should be considered. Aortic atherosclerosis Osteopenia
--- NOTE | ~2023-08-04 | XR_ITS ---
EXAMINATION: XR chest 1V portable DATE: 08/09/2023 12:53 INDICATION: Pneumonia. TECHNIQUE: A single frontal view of the chest was obtained on 2 radiographs. COMPARISON: Chest single view 08/07/2023, chest CT 08/04/23 FINDINGS: There is collapse of right middle lobe and right lower lobe. There are airspace opacities a t left lung base. There is a small right pleural effusion. No pneumothorax. The heart size is normal. IMPRESSION: 1. Persistent collapse of right lung middle lobe and lower lobe. 2. Stable small right pleural effusion. 3. Worsened airspace opacities at left lung base, consistent with atelectasis versus pneumonia. Reviewed, dictated and finalized at location E. IMPRESSION: 1. Persistent collapse of right lung middle lobe and lower lobe. 2. Stable small right pleural effusion. 3. Worsened airspace opacities at left lung base, consistent with atelectasis v ersus pneumonia.
--- NOTE | ~2023-08-04 | US_ITS ---
EXAMINATION:US venous doppler LE BI INDICATION: TECHNIQUE: Multiple grayscale, color flow and Doppler images of the lower extremity deep venous syste ms were obtained and reviewed. COMPARISON: FINDINGS: Study limited by poor patient motion. Right leg amputated at the upper thigh. The common fe moral, superficial femoral and popliteal veins demonstrate normal respiratory variation, augmentation and compressibility. Color flow is also seen within the posterior tibial, peroneal, greater sapheno us and profunda veins. The right popliteal, posterior tibial and peroneal veins are not present. IMPRESSION: 1: No lower extremity deep venous thrombosis. Reviewed, dictated and finalized at location A.
--- NOTE | ~2023-08-04 | CT_ITS ---
EXAMINATION: CTA chest PE protocol DATE: 08/04/2023 13:00 INDICATION: Pleuritic right chest pain TECHNIQUE: Computed tomography angiography (CTA) of the chest was performed with 100 mL Omnipaque-350 intravenous contrast timed to evaluate the pulmonary arteries. Coronal maximum intensity projection 3D-reconstructions were created by the technologist. Automated exposure control and iterative reconst ruction technique were employed. Exam dose: 464.70 mGy-cm total exam DLP. COMPARISON: 07/27/2023 portable AP chest FINDINGS: Examination is limited by motion but there is asymmetric nonopacification of the left lower lobe pulmonary artery and suggestion of some filling defects in some peripheral lower lobe pulmonary arteries, suggesting left lower lobe pulmonary embolism. There is soft tissue occlusion of the right lower lobe bronchus with prominent right lower lobe atele ctasis. The middle lobe bronchus is occluded as well, with middle lobe atelectasis. There is patchy infiltrate and/atelectasis in the left lower lobe and mild patchy lingular infiltrate . No pericardial effusion. Small right pleural effusion. Coronary artery calcification. No thoracic aortic aneurysm or dissection is detected. There is extensive calcification of the celiac and superior mesenteric and renal arteries as well as abdominal aorta. IMPRESSION: Strong suspicion of left lower lobe pulmonary embolism; unfortunately examination is an ited by prominent respiratory motion Occluded right middle and lower lobes with atelectasis of these lobes; endobronchial neoplasm is not excluded. Consider bronchoscopy when appropriate Patchy left lower lobe infiltrate/atelectasis, mild patchy lingular infiltrate Severe atherosclerosis Reviewed, dictated and finalized at Location A. Reviewed, dictated and finalized at location A. IMPRESSION: Strong suspicion of left lower lobe pulmonary embolism; unfortunat corinne examination is limited by prominent respiratory motion Occluded right middle and lower lobes with atelectasis of these lobes; endobron chial neoplasm is not excluded. Consider bronchoscopy when appropriate Patchy left lower lobe infiltrate/atelectasis, mild patchy lingular infiltrate Severe atherosclerosis
--- NOTE | ~2023-08-04 | XR_ITS ---
EXAMINATION: XR chest 1V portable DATE: 08/07/2023 05:38 INDICATION: Right lung lower lobe atelectasis. TECHNIQUE: A single frontal view of the chest was obtained on 2 radiographs. COMPARISON: Chest single view 08/04/2023, chest CT 08/04/2023 FINDINGS: There is a small right pleural effusion. There is complete collapse of right lower lobe and right middle lobe. There is mild atelectasis in left lower lung zone. Calcified pulmonary nodules an d calcified hilar lymph nodes are consistent with old granulomatous disease. No pneumothorax. The hea rt size is normal. IMPRESSION: 1. Complete collapse of right lung middle lobe and lower lobe. Mild atelectasis in left lower lung zo ne. 2. Worsened small right pleural effusion. Reviewed, dictated and finalized at location E. IMPRESSION: 1. Complete collapse of right lung middle lobe and lower lobe. Mild atelectasis in left lower lung zone. 2. Worsened small right pleural effusion.
--- NOTE | ~2023-08-04 | US_ITS ---
EXAMINATION: US venous doppler [facility] DATE: 08/05/2023 17:10 INDICATION: Shortness of breath. . TECHNIQUE: Grayscale images without and with compression and Doppler images of the bilateral lower ex tremity veins were obtained. COMPARISON: None FINDINGS: The right common femoral vein, profunda (deep) femoral vein, femoral vein greater saphenous vein are patent. Status post right above-knee amputation. The left common femoral vein, profunda (deep) femoral vein, femoral vein, popliteal vein, peroneal v ein, posterior tibial veins, gastrocnemius vein, and greater saphenous vein are patent. IMPRESSION: Patent bilateral lower extremity veins. No evidence of deep venous thrombosis. Reviewed, dictated and finalized at location K.
--- NOTE | ~2023-08-04 | XR_ITS ---
EXAMINATION: XR chest 1V portable DATE: 08/07/2023 09:24 INDICATION: Shortness of breath. TECHNIQUE: A single frontal view of the chest was obtained. COMPARISON: Chest single view 08/07/2023 at 5:22 AM FINDINGS: There is complete collapse of right lung middle lobe and lower lobe. There is a small right pleural effusion. Calcified left lung nodules and calcified hilar and mediastinal lymph nodes are co nsistent with old granulomatous disease. There is a diffuse interstitial pattern, consistent with mil d pulmonary edema. No pneumothorax. The heart size is normal. IMPRESSION: 1. Mild pulmonary edema. 2. Persistent collapse of right middle lobe and right lower lobe. 3. Stable small right pleural effusion. Reviewed, dictated and finalized at location E.
--- NOTE | ~2023-08-04 | US_ITS ---
EXAMINATION: US thoracentesis DATE: 08/13/2023 16:17 INDICATION: Right pleural effusion TECHNIQUE: The procedure and its risks and benefits were discussed with the patient. Potential risks discussed included bleeding, infection, and pneumothorax. The patient understood the risks and agreed to proceed. The skin was prepped and draped in sterile fashion. 1% lidocaine was used for local anes thesia. Under ultrasound guidance, a 5 Fr catheter with trochar was advanced into the right pleural e ffusion. Fluid was aspirated. The catheter was removed, and a dressing was applied. There were no imm ediate complications. FINDINGS: Ultrasound images demonstrate a complex small loculated pleural effusion with pleural effusion and th e catheter within the fluid. There are multiple subtle internal septations within the effusion. IMPRESSION: 1. Successful ultrasound-guided thoracentesis yielding 20 mL of turbid yellowish fluid with internal debris. Reviewed, dictated and finalized at location A. E CARE NURSE PRACTITIONER IMPRESSION: 1. Successful ultrasound-guided thoracentesis yielding 20 mL of turbid yellowi sh fluid with internal debris.
--- NOTE | 2023-08-04 10:01 | ECG_ITS ---
Measurements Intervals [place] Rate: 95 P: 54 DC: 131 QRS: 66 QRSD: 102 T: 53 QT: 368 QTc: 464 Interpretive Statements SINUS RHYTHM BASELINE ARTIFACT NORMAL ECG COMPARED TO ECG 09/28/2020 14:55:43 NO SIGNIFICANT CHANGES Electronically Signed On 08-04-2023 14:40:45 CDT by Yao Brown M.D.
--- NOTE | 2023-08-04 10:21 | ED.CHESTPAIN ---
HPI - Chest Pain General Chief Complaint: Chest Pain <Malgorzata Haile PA-C - Last Filed: 08/04/23 18:50> Stated Complaint: CP <Malgorzata Haile PA-C - Last Filed: 08/04/23 18:50> Time Seen by Provider: 08/04/23 10:01 <Malgorzata Haile PA-C - Last Filed: 08/04/23 18:50> History of Present Illness HPI narrative: 78-year-old male with a history of MAN, HLD, HTN, COPD, PVD, s/p right knee amputation reports from home via [facility] with complaint of right-sided chest pain that started prior to arrival while patient was laying in bed. Patient states the pain is pleuritic and only hurts when he takes a deep breath. No radiating pain. He reports a productive cough but is unable to tell me how long his cough has been present. He has not smoked for 6 years. Patient's and daughter present at bedside who state the patient had a pneumothorax previously which they believe was due to what sounds like a pleural effusion. Patient denies abdominal pain, nausea, vomiting, diarrhea, fever, lower extremity edema, history of VTE. Denies history of cancer. Denies cardiac history. He does believe one of his parents may have from an MO. He wears 3 L NC at baseline. <Malgorzata Haile PA-C - Last Filed: 08/04/23 18:50> Related Data Home Medications: Home Medications Medication Instructions Recorded Confirmed acetaminophen 325 mg capsule 325 mg PO Q6H PRN Pain 08/26/19 08/04/23 ascorbic acid (vitamin C) 500 mg 500 mg PO DAILY 08/26/19 08/04/23 capsule cholecalciferol (vitamin D3) 50 2,000 unit PO DAILY 08/26/19 08/04/23 mcg (2,000 unit) tablet ferrous sulfate 324 mg (65 mg 324 mg PO BID 08/26/19 08/04/23 iron) tablet,delayed release multivitamin with iron 1 tablet PO DAILY 08/26/19 08/04/23 zinc gluconate 50 mg tablet 50 mg PO DAILY 08/26/19 08/04/23 albuterol sulfate 2.5 mg/3 mL See Rx Instructions .Route 08/04/23 08/04/23 (0.083 %) solution for nebulization .COMPLEX PRN Shortness Of Breath albuterol sulfate 90 mcg/actuation 1 inh inhalation Q4H PRN Shortness 08/04/23 08/04/23 aerosol inhaler (ProAir HFA) Of Breath <Malgorzata Haile PA-C - Last Filed: 08/04/23 18:50> Allergies/Adverse Reactions: Allergies Allergy/AdvReac Type Severity Reaction Status Date / Time morphine AdvReac Severe HALLUCINATIONS, Verified 08/04/23 10:33 AGITATED <Malgorzata Haile PA-C - Last Filed: 08/04/23 18:50> Review of Systems Review of Systems: CONSTITUTIONAL: Denies fever, chills EYES: Denies visual changes, redness, or discharge. ENT: Denies rhinorrhea, congestion, sore throat, or otalgia. CARDIOVASCULAR: See HPI RESPIRATORY: See HPI GASTROINTESTINAL: Denies abdominal pain, nausea, vomiting, or diarrhea. GENITOURINARY: Denies dysuria or hematuria. SKIN: Denies rash or itching. MUSCULOSKELETAL: Denies back pain, joint pain, or myalgia. NEUROLOGIC: Denies headache, numbness, dizziness, or weakness. PSYCHIATRIC: Denies anxiety or depression. <Malgorzata Haile PA-C - Last Filed: 08/04/23 18:50> [facility] Past Medical History Medical History: Medical History (Updated 08/04/23 @ 18:50 by Malgorzata Haile PA-C) Amputation of right lower extremity below knee COPD (chronic obstructive pulmonary disease) History of right inguinal hernia HLD (hyperlipidemia) HTN (hypertension) <Malgorzata Haile PA-C - Last Filed: 08/04/23 18:50> Surgical History Surgical History: Surgical History History of hernia repair <Malgorzata Haile PA-C - Last Filed: 08/04/23 18:50> Family History Family History: Family History Sibling Colon cancer Father , blood clot Blood clot associated with vein wall inflammation Mother Cerebrovascular accident Diabetes mellitus Peripheral vascular disease Sibling , peripheral vascular disease
[2023-08-04 10:38] LABS: Basophils Absolute Auto 0.1 K/mm3 (0.0-0.1); Basophils Percent Auto 0.4 % (0.2-1.2); Eosinophils Absolute Auto 0.2 K/mm3 (0-0.3); Eosinophils Percent Auto 1.1 % (0-4.4); Hematocrit 34.1 % (42.0-52.0); Hemoglobin 10.3 g/dL (14.0-18.0); Immature Granulocyte Absolute 0.12 K/mm3 (0.00-0.031); Immature Granulocyte Percent A 0.6 % (0-0.5); Lymphocytes Absolute Auto 1.21 K/mm3 (0.9-3.2); Lymphocytes Percent Auto 6.4 % (18.3-44.2); Mean Corpuscular HGB Conc 30.2 g/dl (32-36); Mean Corpuscular Volume 89.3 fl (80-100); Mean Platelet Volume 10.9 fl (7.4-10.4); Monocytes Absolute Auto 1.4 K/mm3 (0.1-0.6); Monocytes Percent Auto 7.2 % (2.6-8.5); Neutrophils Absolute Auto 15.9 K/mm3 (1.3-6.7); Neutrophils Percent Auto 84.3 % (45.5-73.1); Platelet Count Result 464 k/mm3 (150-375); Red Blood Count 3.82 M/mm3 (4.6-6.20); Red Cell Distribution Width 14.6 % (11.5-14.5); White Blood Count 18.9 K/mm3 (4.5-10.0)
[2023-08-04 10:51] LABS: Alanine Aminotransferase 19 U/L (6-50); Albumin Level 3.9 g/dL (3.5-5.1); Alkaline Phosphatase 126 U/L (38-126); Anion Gap 9 mmol/L (8-16); Aspartate Amino Transferase 25 U/L (17-59); Bilirubin,Total 0.4 mg/dL (0.2-1.3); Blood Urea Nitrogen 14 mg/dL (9-20); Calcium 9.9 mg/dL (8.4-10.2); Carbon Dioxide 24 mmol/L (22-30); Chloride 103 mmol/L (98-107); Estimated Glomerular Filt Rate > 60; Glucose 123 mg/dL (65-110); Lipase 39 U/L (23-300); Potassium 3.3 mmol/L (3.4-5.0); Sodium 136 mmol/L (137-145)
[2023-08-04 10:55] LABS: INR 1.1; Prothrombin Time 14.6 Seconds (11.1-14.7)
[2023-08-04 10:56] LABS: Partial Thromboplastin Time 37.1 SECONDS (22.3-36.8)
[2023-08-04 11:01] LABS: NT Pro B Type Natriuretic Pept 1000 pg/mL (19.9-100); Troponin I 0.033 ng/mL (0.000-0.034)
[2023-08-04 11:08] LABS: Magnesium 2.2 mg/dL (1.6-2.3)
[2023-08-04 13:49] LABS: Troponin I 0.048 ng/mL (0.000-0.034)
[2023-08-04] MEDS: HEPARIN SODIUM 5,000 UNITS/ML VIAL 6000 UNITS IV PUSH (14:22)
[2023-08-04] MEDS: HEPARIN SOD/D5W 100 UNITS/ML 25,000 UNITS/250 ML BAG 13 UNITS IV CONT (14:23)
[2023-08-04 14:44] LABS: Lactic Acid Reflex 0.9 mmol/L (0.7-2.0)
[2023-08-04] MEDS: AZITHROMYCIN 500 MG/NS 250 ML 500 MG/250 ML BAG 250 MG IVPB (15:04)
[2023-08-04 15:09] LABS: Influenza A QL RT-PCR Negative (Negative); Influenza B QL RT-PCR Negative (Negative); SARS-CoV-2 RNA PCR Negative (Negative)
[2023-08-04] MEDS: KCL 20 MEQ/SW 100 ML 100 ML 50 MEQ IVPB (15:22)
[2023-08-04 16:16] LABS: Troponin I 0.186 ng/mL (0.000-0.034)
--- NOTE | 2023-08-04 17:12 | PC.NURSE ---
patient being admitted on heparin
--- NOTE | 2023-08-04 17:20 | ADMGEN ---
This patient, Moko Morrow Gabby, was admitted to Medical Room 340-01. Patient/family oriented to hospital policies and general routines including ID bracelet, bed and alarms, visiting hours, pain management, procedures, bathroom and other care routines, personal items, smoking policy, room service/diet, and visiting hours. Information on how to activate the Rapid Response Team has been discussed. Patient/Family are encouraged to report perceived risks to care and to ask questions if they do not understand what they are told or what they should do.
[2023-08-04] MEDS: ALPRAZolam (*CRX) 0.5 MG TABLET PO (20:10)
[2023-08-04] MEDS: OLANZapine 2.5 MG TABLET BY MOUTH (20:56)
--- NOTE | 2023-08-04 21:59 | PM.IMHP ---
H&P: HPI History of Present Illness Date/Time: 08/04/23 18:45 Chief Complaint: Chest pain. Narrative: This is a 78-year-old male with history of hypertension, hyperlipidemia, peripheral vascular disease status post right inabp-lsh-[id number] amputation, and oxygen dependent chronic obstructive pulmonary disease who presented to the emergency department via EMS from home for evaluation of chest pain. The patient provides the following history however he is not the greatest historian. His and daughters provide additional information, with the patient's permission. According to the patient's , he complained of right anterior chest pain earlier today which is were this with movement and deep inspiration. Eventually he asked the to call 911 as the pain was not improving. He did not have any other acute complaints today but mentions that his chronic cough which is typically productive of macias sputum is now green. He was afebrile on arrival to the emergency department. Blood pressures have been running in the 140s to 150s systolic. Labs were significant for a WBC count of 18.9, hemoglobin 10.3, sodium 136, potassium 3.3, lactic acid 0.9, troponin 0.033, proBNP 1000. He was negative for influenza and COVID. EKG showed sinus rhythm with no ischemic changes. Chest CTA showed a strong suspicion of left lower lobe pulmonary embolism though unfortunately examination is limited due to prominent respiratory motion. Additionally the right middle and lower lobes are occluded with atelectasis with patchy left lower lobe infiltrate/atelectasis and mild patchy lingular infiltrate. With further questioning he has a history of atelectasis and mucus plugging requiring bronchoscopy. At the time my evaluation the patient has no complaints. He is a bit restless and tries to get bed frequently which family members note is not unusual for him and it sounds as though he has a history of confusion while in the hospital. He does not have an official diagnosis of dementia. Review of Systems Review of Systems: Twelve systems were reviewed. No fever, chills, or sweats. No sick contacts. He denies orthopnea, paroxysmal nocturnal dyspnea, and edema of the left lower leg. No cap ear tenderness. He denies history of venous thromboembolism. Appetite has been good. He denies concerns for aspiration. No nausea, vomiting, or diarrhea. Except as documented, all other systems were reviewed and are negative. [facility] Past Medical History Medical History (Updated 08/04/23 @ 22:14 by Dolores Alejandro PA-C) Acquired torticollis Anxiety Chronic obstructive pulmonary disease Gout Hyperlipidemia Hypertension Obstructive sleep apnea Peripheral vascular disease Single seizure Surgical History Surgical History (Updated 08/04/23 @ 22:08 by Dolores Alejandro PA-C) History of cataract extraction History of hernia repair History of right above knee amputation History of vascular surgery Lower extremity stents. Family History Family History Sibling Colon cancer Father , blood clot Blood clot associated with vein wall inflammation Mother Cerebrovascular accident Diabetes mellitus Peripheral vascular disease Sibling , peripheral vascular disease Peripheral vascular disease Mother Patient's mother is , Onset Age: 74 Diabetes mellitus Father Patient's father is , Onset Age: 76 Sibling Diabetes mellitus Carcinoma of colon Social History Social History (Updated 08/04/23 @ 22:09 by Dolores Alejandro PA-C) Social History: Surrogate medical decision maker: Mook Morrow Jr., son. Code status: Full code. Smoking packs per day: 1 Smoking cigarettes per day: 20.0 Years smoked: 55 Smoking pack-years: 55.00 Smoking status: Former smoker Second hand tobacco smoke exposure: No Alcohol intake: current Alcohol use details
[2023-08-04] MEDS: ALBUTEROL SULFATE NEB 2.5 MG/3 ML INH (22:15)
[2023-08-05] VITALS (16 sets, daily range): BP systolic 141–149; BP diastolic 53–96; PULSE 90–109; RESP 16–26; TEMP 36.8–36.9; O2SAT 95–98
--- NOTE | 2023-08-05 00:15 | PC.NURSE ---
PTT delayed due to tube system failure.
[2023-08-05 01:05] LABS: Partial Thromboplastin Time 60.2 SECONDS (22.3-36.8)
--- NOTE | 2023-08-05 01:28 | PC.NURSE ---
PTT REDRAW ORDERED AT THIS TIME.
[2023-08-05] MEDS: ALBUTEROL SULFATE NEB 2.5 MG/3 ML INH INHALATION ×4 (01:34→21:00)
[2023-08-05] MEDS: IPRATROPIUM BR 0.02% INH SOLN 0.5 MG/2.5 ML VIAL INHALATION ×4 (01:34→21:00)
[2023-08-05 02:23] LABS: Iron 11 ug/dL (49-181)
[2023-08-05 02:26] LABS: Partial Thromboplastin Time 92.8 SECONDS (22.3-36.8)
[2023-08-05 02:33] LABS: Percent Iron Saturation 5 % (20-50)
[2023-08-05 02:55] LABS: Thyroid Stimulating Hormone Reflex 0.031 uIU/mL (0.465-4.68)
[2023-08-05 04:53] LABS: Folic Acid > 20.0 ng/mL (2.76->20)
[2023-08-05] MEDS: UMECLIDINIUM/VILANTEROL 62.5-25 MCG ELLIPTA 1 PUFF INHALATION (06:59)
--- NOTE | 2023-08-05 07:23 | ECG_ITS ---
Measurements Intervals [place] Rate: 100 P: 19 VA: 132 QRS: -9 QRSD: 98 T: -21 QT: 351 QTc: 454 Interpretive Statements SINUS TACHYCARDIA WANDERING BASELINE ARTIFACT CANNOT RULE OUT iNFERIOR MYOCARDIAL INFARCTION , OF INDETERMINATE AGE BORDERLINE ECG COMPARED TO ECG 08/04/2023 10:06:54 SINUS TACHYCARDIA NOW PRESENT Electronically Signed On 08-05-2023 13:47:27 CDT by Yao Brown M.D.
[2023-08-05 07:34] LABS: Basophils Absolute Auto 0.1 K/mm3 (0.0-0.1); Basophils Percent Auto 0.4 % (0.2-1.2); Hematocrit 30.8 % (42.0-52.0); Hemoglobin 9.4 g/dL (14.0-18.0); Immature Granulocyte Absolute 0.28 K/mm3 (0.00-0.031); Immature Granulocyte Percent A 1.1 % (0-0.5); Lymphocytes Absolute Auto 0.84 K/mm3 (0.9-3.2); Lymphocytes Percent Auto 3.4 % (18.3-44.2); Mean Corpuscular HGB Conc 30.5 g/dl (32-36); Mean Corpuscular Hemoglobin 26.9 pg (26-34); Mean Corpuscular Volume 88.3 fl (80-100); Mean Platelet Volume 10.6 fl (7.4-10.4); Monocytes Percent Auto 8.3 % (2.6-8.5); Neutrophils Absolute Auto 21.3 K/mm3 (1.3-6.7); Neutrophils Percent Auto 86.8 % (45.5-73.1); Platelet Count Result 442 k/mm3 (150-375); Red Blood Count 3.49 M/mm3 (4.6-6.20); Red Cell Distribution Width 14.9 % (11.5-14.5); White Blood Count 24.6 K/mm3 (4.5-10.0)
[2023-08-05 07:46] LABS: Alanine Aminotransferase 21 U/L (6-50); Albumin Level 3.7 g/dL (3.5-5.1); Alkaline Phosphatase 109 U/L (38-126); Aspartate Amino Transferase 31 U/L (17-59); Bilirubin,Total 0.6 mg/dL (0.2-1.3); Phosphorus 3.5 mg/dL (2.5-4.5)
[2023-08-05 07:48] LABS: Anion Gap 8 mmol/L (8-16); Blood Urea Nitrogen 20 mg/dL (9-20); Carbon Dioxide 27 mmol/L (22-30); Chloride 103 mmol/L (98-107); Estimated CRCL calculation 49 ml/min; Estimated Glomerular Filt Rate > 60; Glucose 110 mg/dL (65-110); Magnesium 2.2 mg/dL (1.6-2.3); Potassium 3.6 mmol/L (3.4-5.0); Sodium 138 mmol/L (137-145)
[2023-08-05 08:07] LABS: Partial Thromboplastin Time 91.2 SECONDS (22.3-36.8)
[2023-08-05] MEDS: THERAPEUTIC MULTIVITAMINS/MINERALS TAB (*BKC) 1 TABLET PO (08:28)
[2023-08-05] MEDS: FUROSEMIDE 20 MG TABLET BY MOUTH (08:28)
[2023-08-05] MEDS: POTASSIUM CHLORIDE 10 MEQ ER TABLET PO (08:28)
[2023-08-05] MEDS: guaiFENesin 12 HR 600 MG TABCR PO (08:28)
[2023-08-05] MEDS: ASCORBIC ACID 500 MG TABLET PO (08:28)
[2023-08-05] MEDS: CLOPIDOGREL BISULFATE 75 MG TABLET BY MOUTH (08:29)
[2023-08-05] MEDS: FERROUS SULFATE 325 MG TABLET DR PO ×2 (08:29→17:27)
[2023-08-05] MEDS: CHOLECALCIFEROL 1,000 UNITS TABLET 2000 UNITS PO (08:29)
[2023-08-05] MEDS: METOPROLOL TARTRATE 12.5 MG TABLET BY MOUTH (08:29)
[2023-08-05] MEDS: HEPARIN SOD/D5W 100 UNITS/ML 25,000 UNITS/250 ML BAG 13 UNITS IV CONT (10:33)
[2023-08-05 11:40] LABS: Free T4 Free Thyroxine Reflex 1.49 ng/dL (0.78-2.19)
--- NOTE | 2023-08-05 12:20 | PM.IMPN ---
Progress Note: A&P Assessment and Plan (1) Pulmonary embolism: Qualifiers: Acute cor pulmonale presence: without acute cor pulmonale Chronicity: acute Pulmonary embolism type: unspecified Qualified Code(s): I26.99 - Other pulmonary embolism without acute cor pulmonale Code(s): I26.99 - Other pulmonary embolism without acute cor pulmonale Status: Acute Assessment and Plan: The patient presented with complaints of right-sided chest pain. Chest CTA was suspicious for LLL PE but limited due to respiratory motion. He was started on Heparin drip. Elevated Trop could be related to the PE but not a large clot burden. Check LE venous dopplers. Check Echo. Continue Heparin for now. (2) Community acquired pneumonia: Qualifiers: Laterality: left Lung location: lower lobe of lung Qualified Code(s): J18.9 - Pneumonia, unspecified organism Code(s): J18.9 - Pneumonia, unspecified organism Status: Acute Assessment and Plan: CTA chest also shows occluded RML and RLL with associated atelectasis as well as patchy LLL infiltrate/atelectasis and mild patchy lingular infiltrate. The RLL findings were seen by CT in 2020 though worse now. BCx and Sputum culture pending. Started on azithromycin and ceftriaxone for presumed pneumonia. Legionella and pneumococcal antigens as well as mycoplasma IgM ordered. Continue scheduled bronchodilators. Mucinex and Cornet ordered to help mobilize secretions. Incentive spirometry encouraged. Pulmonology has been consulted for their input; family members report history of mucous plugging requiring bronchoscopy. Check MRSA nasal swab (3) Elevated troponin: Code(s): R79.89 - Other specified abnormal findings of blood chemistry Status: Acute Assessment and Plan: Troponin elevated on admission and has climbed to 1.5. EKG showing NSR and overall normal. Echo ordered. Repeat EKG showing more prominent Q waves in inferior leads o/w no change. Cardiology consult. Change Zocor to Lipitor. Continue ASA, lopressor and Plavix. Currently on heparin drip so monitor HH closely. Will move to IMU. Stop ASA once on Eliquis. Check lipids (4) Atelectasis of right lung: Code(s): J98.11 - Atelectasis Status: Acute Assessment and Plan: As above (5) Chronic obstructive pulmonary disease: Code(s): J44.9 - Chronic obstructive pulmonary disease, unspecified Status: Acute Assessment and Plan: Stable. No wheezing. Continue inhalers and Albuterol/Atrovent nebs. (6) Normocytic anemia: Code(s): D64.9 - Anemia, unspecified Status: Acute Assessment and Plan: No recent HH to compare but normal last year. Hgb 10.3 on admission and has dropped to 9.4 today. Iron studies, b12 noted. Add Protonix (7) Hypertension: Code(s): I10 - Essential (primary) hypertension Status: Acute Assessment and Plan: Patient's blood pressure was reviewed on 08/05 Blood pressure remains reasonably well controlled. Will continue to monitor (8) Obstructive sleep apnea: Code(s): G47.33 - Obstructive sleep apnea (adult) (pediatric) Status: Acute Assessment and Plan: order CPAP (9) Peripheral vascular disease: Code(s): I73.9 - Peripheral vascular disease, unspecified Status: Acute Assessment and Plan: PAD s/p right AKA. Plan DVT prophylaxis - Heparin Code status - Full Subjective Date/time seen: 08/05/23 12:20 Interval history: 78yo male with MAN, COPD, HTN and PAD here for chest pain. Patient is alert but confused and unable to provide reliable hx. Spoke with on the phone and she wants all measures to be considered in his care. She states the patient's confusion is chronic. He is supposed to wear 3L O2 at home but he is noncompliant with this treatment. Review of Systems Review of Systems: KAREN reynolds
[2023-08-05 12:45] LABS: Total Triiodothyronine (T3) 1.29 NG/ML (0.97-1.69)
[2023-08-05 12:50] LABS: Cholesterol 116 mg/dL (0-200); HDL Direct 41 mg/dL; Triglycerides 70 mg/dL (<150)
[2023-08-05] MEDS: ASPIRIN 81 MG CHEWABLE TABLET PO (12:55)
[2023-08-05 13:00] LABS: LDL Cholesterol Direct 46 mg/dL
[2023-08-05] MEDS: AZITHROMYCIN 500 MG/NS 250 ML 500 MG/250 ML BAG 250 MG IVPB (13:48)
--- NOTE | 2023-08-05 15:11 | PM.CNPUL ---
Assessment and Plan Assessment and plan (1) Community acquired pneumonia: Qualifiers: Laterality: left Lung location: lower lobe of lung Qualified Code(s): J18.9 - Pneumonia, unspecified organism Code(s): J18.9 - Pneumonia, unspecified organism Status: Acute Assessment and Plan: He may have a community acquired pneumonia or an aspiration pneumonia, or combination of these. He has RML and RLL atlectasis, has had on going issues for 2 years. Cultures pending, now on azithromycin and ceftriaxone empirically. He has had bronchoscopy in the past. Does not have urgent need for bronchoscopy now however now with torticollis, he might be difficult to navigate his curved airway. Intubation might be difficult. (2) Atelectasis of right lung: Code(s): J98.11 - Atelectasis Status: Acute Assessment and Plan: See above. (3) Chronic obstructive pulmonary disease: Code(s): J44.9 - Chronic obstructive pulmonary disease, unspecified Status: Acute Assessment and Plan: Uses Anoro and vest; did not want to use nebulized regimen as it was more expensive and no more effective than Anoro alone. His Jun 08 office note indicates that he uses O2 with sleeping, most nights. Was heavy smoker, 57 pack years, quit 2016. (4) Pulmonary embolism: Qualifiers: Acute cor pulmonale presence: without acute cor pulmonale Chronicity: acute Pulmonary embolism type: unspecified Qualified Code(s): I26.99 - Other pulmonary embolism without acute cor pulmonale Code(s): I26.99 - Other pulmonary embolism without acute cor pulmonale Status: Acute Assessment and Plan: Based on CTA chest; he does not have history of thromboembolic events. He is now on heparin drip, anticoagulated with PTT 91.2 seconds. (5) MAN (obstructive sleep apnea): Code(s): G47.33 - Obstructive sleep apnea (adult) (pediatric) Status: Acute Assessment and Plan: does not use CPAP; uses O2 nasal cannula at night Plan Swallow study is pending; will help to evaluate for aspiration. Appears highly likely to aspirate. He needs an ABG; last one was 2018; his chemistry does not show elevated serum CO2. Has COPD, now with PE and pneumonia, using O2 at home. Continue antibiotics; doubt he can produce sputum that will be sufficient for lab ananlysis. Anticoagulation for pulmonary embolus. He had a normal Na+, echo is pending. Further recommendations based on what results return. History of Present Illness History of Present Illness Consult date: 08/05/23 Requesting physician: Dolores Alejandro PA-C Chief complaint: Pulmonary Embolism/Pneumonia Narrative: patient is seen Aug 05 at 19:15 NEW: Mook Morrow is a 78-year-old man with severe COPD, last office visit in our pulmonary clinic was Jun 08. He uses Anoro for controller therapy and a vibratory vest. He has poor memory, is not always complaint with medications. I called his Ana who gave me details about Sunday am. He was fine on Sunday. Sunday, Aug 04, he said that he had chest pain, wanted to be seen. She called 911; he came through ER by ambulance for right anterior chest pain, and a change in his chronic cough with sputum turned from his normal macias to green. WBC was 18.9, Lactic acid 0.9, troponin 0.033, pro-BNP 1000. CTA = strong suspicion for LLL pulmonary embolus. He has atelectasis/infiltrate in the LLL. I asked her about his head tilt almost 80 degrees to the right side. She tells me that this has been present for a while, really hard for her to express how long, months but not years; she has asked doctors
--- NOTE | 2023-08-05 15:12 | PC.NURSE ---
Pt transferred to IMU room 231. Tenderizer Tender gave report to ANY So. Family at bedside and took all belongings with them at transport.
--- NOTE | 2023-08-05 15:37 | PCSTNOTE ---
Attempted to do bedside swallowing evaluation with patient but he was between rooms, transferring. Visited patient in new room (231-1) and nursing was still working with patient and setting up. Will leave on list for tomorrow.
[2023-08-06] VITALS (24 sets, daily range): BP systolic 122–178; BP diastolic 56–94; PULSE 82–119; RESP 17–26; TEMP 36.6–37.3; O2SAT 93–96
[2023-08-06] MEDS: ALBUTEROL SULFATE NEB 2.5 MG/3 ML INH INHALATION ×2 (01:34→08:45)
[2023-08-06] MEDS: IPRATROPIUM BR 0.02% INH SOLN 0.5 MG/2.5 ML VIAL INHALATION ×2 (01:34→08:46)
[2023-08-06] MEDS: HEPARIN SOD/D5W 100 UNITS/ML 25,000 UNITS/250 ML BAG 13 UNITS IV CONT (05:03)
[2023-08-06 05:14] LABS: Alveolar/Arterial O2 Gradient 121.3 mmHg; Base Excess ABG 2.2 mEq/l (+/-2.0); Fractional Inspired Oxygen 32 %; HCO3 ABG 25.7 mEq/l (22.0-26.0); Oxygen Content ABG 12.7 %vol (16.0-22.0); Oxyhemoglobin 92.1 % THb (90.0-100.0); PO2 ABG 64.7 mmHg (80.0-100.0); PO2 FiO2 Ratio Arterial Blood 2.02 %; Total Hemoglobin 9.8 g/dL (12.0-18.0); pH ABG 7.472 (7.350-7.450)
[2023-08-06 05:16] LABS: Device NASAL CANNULA; Modified Allen's Test Pass; Site Drawn RIGHT RADIAL
[2023-08-06 07:30] LABS: Basophils Absolute Auto 0.1 K/mm3 (0.0-0.1); Basophils Percent Auto 0.3 % (0.2-1.2); Hematocrit 29.3 % (42.0-52.0); Hemoglobin 8.9 g/dL (14.0-18.0); Immature Granulocyte Absolute 0.11 K/mm3 (0.00-0.031); Immature Granulocyte Percent A 0.5 % (0-0.5); Lymphocytes Absolute Auto 0.92 K/mm3 (0.9-3.2); Lymphocytes Percent Auto 4.6 % (18.3-44.2); Mean Corpuscular HGB Conc 30.4 g/dl (32-36); Mean Corpuscular Hemoglobin 26.6 pg (26-34); Mean Corpuscular Volume 87.5 fl (80-100); Mean Platelet Volume 10.8 fl (7.4-10.4); Monocytes Absolute Auto 1.7 K/mm3 (0.1-0.6); Monocytes Percent Auto 8.6 % (2.6-8.5); Neutrophils Absolute Auto 17.3 K/mm3 (1.3-6.7); Platelet Count Result 460 k/mm3 (150-375); Red Blood Count 3.35 M/mm3 (4.6-6.20); Red Cell Distribution Width 15.2 % (11.5-14.5); White Blood Count 20.2 K/mm3 (4.5-10.0)
[2023-08-06 07:41] LABS: Albumin Level 3.6 g/dL (3.5-5.1); Anion Gap 6 mmol/L (8-16); Blood Urea Nitrogen 21 mg/dL (9-20); Calcium 10.1 mg/dL (8.4-10.2); Carbon Dioxide 26 mmol/L (22-30); Chloride 104 mmol/L (98-107); Estimated CRCL calculation 49 ml/min; Estimated Glomerular Filt Rate > 60; Glucose 111 mg/dL (65-110); Magnesium 2.2 mg/dL (1.6-2.3); Partial Thromboplastin Time 68.5 SECONDS (22.3-36.8); Phosphorus 3.2 mg/dL (2.5-4.5); Potassium 3.6 mmol/L (3.4-5.0); Sodium 136 mmol/L (137-145)
[2023-08-06 08:00] LABS: Troponin I 0.642 ng/mL (0.000-0.034)
[2023-08-06] MEDS: UMECLIDINIUM/VILANTEROL 62.5-25 MCG ELLIPTA 1 PUFF INHALATION (09:25)
--- NOTE | 2023-08-06 09:50 | PCSTNOTE ---
Please refer to the Bedside Swallow Evaluation in the EMR. Please note, silent aspiration cannot be ruled out at bedside.
[2023-08-06] MEDS: METOPROLOL TARTRATE 12.5 MG TABLET BY MOUTH ×2 (10:30→19:42)
--- NOTE | 2023-08-06 10:39 | PM.CNCAR ---
Assessment and Plan Assessment and plan (1) Elevated troponin: Code(s): R79.89 - Other specified abnormal findings of blood chemistry Status: Acute Assessment and Plan: Troponin is likely a type 2 infarction for underlying pneumonia and pulmonary embolism. 2D echocardiogram Doppler is ordered will be reviewed. Continue statin metoprolol. He is not complaining of any angina present. Patient will be on anticoagulation but if it is determined that he did not have a PE and anticoagulation is not given, would start low-dose aspirin 81 mg p.o. daily (2) HTN (hypertension): Qualifiers: Hypertension type: essential hypertension Qualified Code(s): I10 - Essential (primary) hypertension Code(s): I10 - Essential (primary) hypertension Status: Acute Assessment and Plan: Continue metoprolol (3) Community acquired pneumonia: Qualifiers: Laterality: left Lung location: lower lobe of lung Qualified Code(s): J18.9 - Pneumonia, unspecified organism Code(s): J18.9 - Pneumonia, unspecified organism Status: Acute Assessment and Plan: Continue antibiotics (4) Pulmonary embolism: Qualifiers: Acute cor pulmonale presence: without acute cor pulmonale Chronicity: acute Pulmonary embolism type: unspecified Qualified Code(s): I26.99 - Other pulmonary embolism without acute cor pulmonale Code(s): I26.99 - Other pulmonary embolism without acute cor pulmonale Status: Acute Assessment and Plan: Per hospitalist (5) Electrolyte imbalance: Code(s): E87.8 - Other disorders of electrolyte and fluid balance, not elsewhere classified Status: Acute Assessment and Plan: Potassium is low normal. Will replace with 40 mEq p.o. x1 History of Present Illness History of Present Illness Consult date/time: 08/06/23 10:39 Requesting physician: Ron Singer MD Consult reason: Other (Elevated troponin) Reason For Visit: Pulmonary Embolism/Pneumonia Narrative: Reason for consultation: Elevated troponin Date of service 08/06/2023 Requesting provider: Dr. Singer History patient is a 78-year-old male who has history of vascular disease but no documented coronary disease who presented to the hospital because of chest pain and shortness of breath. Patient had some right-sided chest pain worsened by breathing and movement. His sputum has also turned from grade to green. CT scan of the chest is concerning for pneumonia and pulmonary embolism. Troponins were drawn which were elevated have since peaked and now declining. He has no syncope, presyncope, paroxysmal nocturnal dyspnea, orthopnea, edema or palpitations. Denies any chest pain at present or shortness of breath. Review of Systems Review of Systems: All systems reviewed & are unremarkable except as noted in HPI and below Constitutional: Constitutional: Denies body ache(s) Eyes: Eyes: Denies blurry vision ENT: Reports Normal hearing present Cardiovascular: Cardiovascular: Reports chest pain Respiratory: Respiratory: Reports cough and Reports dyspnea Gastrointestinal: Gastrointestinal: Denies abdominal pain Genitourinary: Genitourinary: Denies hematuria Musculoskeletal: Musculoskeletal: Denies back pain Integumentary/Breasts: Skin/Breast: Denies dry skin Neurologic: Denies Abnormal speech present Psychiatric: Psychiatric: Denies anxiety Endocrine: Endocrine: Denies excessive sweating Hematologic/Lymphatic: Hematologic/Lymphatic: Denies easy bleeding Allergic/Immunologic: Allergic/Immunologic: Denies GI upset with certain foods PMFSH Past Medical History Medical History Acquired torticollis Anxiety Chronic obstructive pulmonary disease Gout Hyperlipidemia Hypertension Obstructive sleep apnea Peripheral vascular disease Single seizure Surgical History Surgical History (Reviewed 08/06/23
--- NOTE | 2023-08-06 11:13 | PM.PNPUL ---
Progress Note: A&P Assessment and Plan (1) Pulmonary embolism: Qualifiers: Acute cor pulmonale presence: without acute cor pulmonale Chronicity: acute Pulmonary embolism type: unspecified Qualified Code(s): I26.99 - Other pulmonary embolism without acute cor pulmonale Code(s): I26.99 - Other pulmonary embolism without acute cor pulmonale Status: Acute Assessment and Plan: Patient presented on 08/04/2023 with right anterior chest pain worse with movement and deep inspiration. CT angiogram with a strong suspicion for PE in the left lower lobe however limited by prominent respiratory motion. Lower extremity Dopplers were negative. Troponins were positive, BNP was 1000 and patient has remained hemodynamically stable on IV heparin. 08/06: Agree with treatment for PE. Patient is currently on IV heparin with no active bleeding. Echocardiogram is pending. Consider changing to DOAC that his insurance will cover. Will follow with you. (2) Chronic obstructive pulmonary disease: Code(s): J44.9 - Chronic obstructive pulmonary disease, unspecified Status: Acute Assessment and Plan: Patient with a 55 pack year tobacco history, quit 12/06/2016, PFTs in the chart from 07/2017 with severe obstructive abnormality. CT scan with mild to moderate apical predominant centrilobular emphysema. Hypoxemic respiratory failure on 3 L nasal cannula 24-7. ABG on 08/06/2023 7.47/36/65 on 3 L nasal cannula. 08/05/23: Uses Anoro and vest; did not want to use nebulized regimen as it was more expensive and no more effective than Anoro alone. His Jun 08 office note indicates that he uses O2 with sleeping, most nights. 08/06/23: No evidence of a COPD exacerbation at this time. There is no evidence of chronic hypercarbic respiratory failure on his ABG. Plan: I will continue the patient's Anoro Ellipta 62.5-25 at 1 puff q.day. I will discontinue the albuterol and ipratropium nebulizers. I will continue guaifenesin 600 mg p.o. q.12 hours. I do not recommend inhaled or systemic steroids at this time. Goal saturation during the day is 90-94%. I have decreased him to 2 L. I will order an overnight oximetry on 2 L. (3) Atelectasis of right lung: Code(s): J98.11 - Atelectasis Status: Acute Assessment and Plan: He has had pneumonia in the past, had a bronchoscopy 12/2018 for thick secretions in the RLL, no obstructing lesions seen. There was a concern for aspiration at that time. He has continued right lower lobe collapse on his CT scan from 07/01/2021. 08/06/23: Current CT angiogram of the chest on 08/04/2023 shows minimal change in his right lower lobe collapse. He has been bronch previously with no obstructing lesion. There has been continued concern for aspiration. He also has some patchy left lower lobe infiltrate which may represent a pneumonia. Plan: Patient is afebrile. His white blood cell count is 20.2, he continues on ceftriaxone and azithromycin since 08/04/2023, day 3. There has been concern for aspiration given the patient's neck deformity and agree with swallow evaluation. I will order chest x-ray on 08/07/2023 Subjective Date/time seen: 08/06/23 11:13 Interval history: New Consult date: 08/05/23 Requesting physician: Dolores Alejandro PA-C Chief complaint: Pulmonary Embolism/Pneumonia Narrative: patient is seen Aug 05 at 19:15 NEW: Mook Morrow is a 78-year-old man with severe COPD, last office visit in our pulmonary clinic was Jun 082022. He uses Anoro for controller therapy and a vibratory vest. He has poor memory, is not always complaint with medications. I called his Ana who gave me details about Sunday. He was fine on Sunday. Aug 04, he said that he had chest pain, wanted to be seen. She called 911; he came through ER by ambulance for right anterior chest pain, and a change in his chronic cough with sputum turned from his normal macias to green.? WBC
--- NOTE | 2023-08-06 13:27 | PM.IMPN ---
Progress Note: A&P Assessment and Plan (1) Septicemia: Code(s): A41.9 - Sepsis, unspecified organism Status: Acute Assessment and Plan: Patient with sepsis on admission with tachycardia, leukocytosis, tachypnea, and no with positive BCx. Suspected source is PNA. BCx 08/04 growing GPC in clusters aerobic only, other set NGTD SpCx 08/05 NGTD Add vancomycin. Repeat BCx. (2) Pulmonary embolism: Qualifiers: Acute cor pulmonale presence: without acute cor pulmonale Chronicity: acute Pulmonary embolism type: unspecified Qualified Code(s): I26.99 - Other pulmonary embolism without acute cor pulmonale Code(s): I26.99 - Other pulmonary embolism without acute cor pulmonale Status: Acute Assessment and Plan: The patient presented with complaints of right-sided chest pain. Chest CTA was suspicious for LLL PE but limited due to respiratory motion. He was started on Heparin drip. Elevated Trop could be related to the PE but not a large clot burden. LE venous dopplers negative for DVT. Echo pending. Continue Heparin but transition to Eliquis today. (3) Community acquired pneumonia: Qualifiers: Laterality: left Lung location: lower lobe of lung Qualified Code(s): J18.9 - Pneumonia, unspecified organism Code(s): J18.9 - Pneumonia, unspecified organism Status: Acute Assessment and Plan: CTA chest also shows occluded RML and RLL with associated atelectasis as well as patchy LLL infiltrate/atelectasis and mild patchy lingular infiltrate. The RLL findings were seen by CT in 2020 though worse now. WBC was 24K. WBC trending down. BCx and Sputum culture as above Started on azithromycin and ceftriaxone for presumed pneumonia. Legionella and pneumococcal antigens as well as mycoplasma IgM ordered. Continue scheduled bronchodilators. Mucinex and Cornet ordered to help mobilize secretions. Incentive spirometry encouraged. Pulmonology consulted and appreciate their input Weaned to 2L. Per pulmonary note, patient only on O2 at night at 3L. (4) Elevated troponin: Code(s): R79.89 - Other specified abnormal findings of blood chemistry Status: Acute Assessment and Plan: Troponin elevated on admission and has climbed to 1.5. EKG showing NSR and overall normal. Echo ordered. Repeat EKG showing more prominent Q waves in inferior leads o/w no change. Cardiology consulted and appreciate their input. They felt Type UT from PNA and PE. Changed Zocor to Lipitor. Will stop ASA since on Plavix and Eliquis. Continue lopressor and Plavix. Change heparin drip to Eliquis since no plans for further ischemic evaluation. (5) Atelectasis of right lung: Code(s): J98.11 - Atelectasis Status: Acute Assessment and Plan: As above (6) Chronic obstructive pulmonary disease: Code(s): J44.9 - Chronic obstructive pulmonary disease, unspecified Status: Acute Assessment and Plan: Stable. No wheezing. ABG 08/06 showing 7.47/36/65 3L Continue Anoro and Albuterol/Atrovent nebs. (7) Normocytic anemia: Code(s): D64.9 - Anemia, unspecified Status: Acute Assessment and Plan: No recent HH to compare but normal last year. Hgb 10.3 on admission and has dropped today to 8.9 B12/Folate normal. Iron studies showing low TIBC and low iron. Ferritin 32 to suggest a component of iron deficiency. Continue Protonix. Continue iron as he tolerates. (8) Hypertension: Code(s): I10 - Essential (primary) hypertension Status: Acute Assessment and Plan: Patient's blood pressure was reviewed on 08/06 Blood pressure elevated at times. Advance metoprolol to BID Will continue to monitor (9) Obstructive sleep apnea: Code(s): G47.33 - Obstructive sleep apnea (adult) (pediatric) Status: Acute Assessment and Plan: Patient refused CPAP. He wears 3L O2 at night. (10) Periphera
[2023-08-06] MEDS: AZITHROMYCIN 500 MG/NS 250 ML 500 MG/250 ML BAG 250 MG IVPB (18:32)
[2023-08-06] MEDS: APIXABAN 5 MG TABLET 10 MG PO (19:41)
[2023-08-06] MEDS: PANTOPRAZOLE 40 MG TABLET PO (19:41)
[2023-08-06] MEDS: ATORVASTATIN 40 MG TABLET PO (19:41)
[2023-08-06] MEDS: OLANZapine 2.5 MG TABLET BY MOUTH (19:41)
[2023-08-06] MEDS: guaiFENesin 12 HR 600 MG TABCR PO (19:41)
[2023-08-06] MEDS: ALPRAZolam (*CRX) 0.5 MG TABLET PO (22:00)
[2023-08-07] VITALS (21 sets, daily range): BP systolic 125–165; BP diastolic 56–78; PULSE 71–138; RESP 18–32; TEMP 36.1–36.6; O2SAT 93–99
--- NOTE | 2023-08-07 | ECHO_ITS ---
Patient Info Name: Mook Morrow Age: 78 years : 1945 Gender: Male Ht: 72 in Wt: 163 lbs BSA: 1.94 m2 BP: 125 / 56 mmHg Heart Rhythm: Sinus Rhythm Technical Quality: Fair Exam Date: 08/07/2023 11:09 AM Exam Location: Echo Lab Patient Status: Inpatient Admit Date: 08/05/2023 Staff Ordering Physician: Dolores Alejandro PA-C Receptionist Scheduler: Manoj Moon RDCS Attending Provider: Ron Singer MD Exam Type: CA echo doppler color flow Study Info Indications - ELEVATED TROPONIN Complete two-dimensional, color flow and Doppler transthoracic echocardiogram is performed. Summary 1. Complete two-dimensional, color flow and Doppler transthoracic echocardiogram is performed. 2. Left ventricular chamber dimension is normal. 3. Left ventricular systolic function is normal, estimated at 65-70%. 4. There is mildly increased left ventricular wall thickness. 5. The left ventricular diastolic function is grade I diastolic dysfunction. 6. The inferior wall is hypokinetic. 7. There is moderate aortic valve calcification. 8. The mitral valve annulus is severely calcified. 9. There is mild tricuspid valve regurgitation. 10. Mild pulmonary hypertension, estimated pulmonary arterial systolic pressure is 37 mmHg. Left Ventricle Left ventricular chamber dimension is normal. Left ventricular systolic function is normal, estimated at 65-70%. There is mildly increased left ventricular wall thickness. The left ventricular diastolic function is grade I diastolic dysfunction. The inferior wall is hypokinetic. The basal inferolateral wall, and mid inferolateral wall are not visualized. All other sullivan appear normal. Right Ventricle Right ventricular chamber dimension is normal. Right ventricular systolic function is normal. Left Atria Left atrial chamber dimension is normal. Right Atria Right atrial chamber dimension is normal. Atrial Septum Intact interatrial septum visualized by color flow imaging. Aortic Valve The aortic valve is probable trileaflet. There is moderate aortic valve sclerosis. There is no aortic valve stenosis. There is trace aortic valve regurgitation. There is moderate aortic valve calcification. Pulmonic Valve The pulmonic valve is normal. There is no pulmonic valve stenosis. There is trace pulmonic regurgitation. Mitral Valve There is no mitral valve stenosis. There is trace mitral valve regurgitation. The mitral valve annulus is severely calcified. Tricuspid Valve The tricuspid valve leaflets are normal. There is no significant tricuspid valve stenosis. There is mild tricuspid valve regurgitation. Mild pulmonary hypertension, estimated pulmonary arterial systolic pressure is 37 mmHg. Pericardium/Pleural The pericardium appears normal. There is no pericardial effusion. Inferior Vena Cava Normal inferior vena cava with >50% collapse upon inspiration consistent with normal right atrial pressure, 10 mmHg. Aorta The aortic root size at the sinus of Valsalva is normal. Left Ventricular Outflow Tract Name Value Normal LVOT 2D LVOT Diameter 2.1 cm LVOT Doppler LVOT Peak Gradient 5 mmHg LVOT Mean Gradient 2 mmHg
--- NOTE | 2023-08-07 01:10 | PCRCNOTE ---
Patient refused overnight oximetry. Patient would not allow RT to put finger probe on. RT tried and was successful, only to have patient remove it.
[2023-08-07 05:50] LABS: Basophils Absolute Auto 0.1 K/mm3 (0.0-0.1); Basophils Percent Auto 0.6 % (0.2-1.2); Eosinophils Percent Auto 0.2 % (0-4.4); Hematocrit 28.2 % (42.0-52.0); Immature Granulocyte Absolute 0.15 K/mm3 (0.00-0.031); Immature Granulocyte Percent A 0.8 % (0-0.5); Immature Platelet Fraction Pct 7.3 % (0.9-11.2); Lymphocytes Absolute Auto 1.05 K/mm3 (0.9-3.2); Lymphocytes Percent Auto 5.3 % (18.3-44.2); Mean Corpuscular HGB Conc 28.4 g/dl (32-36); Mean Corpuscular Hemoglobin 26.1 pg (26-34); Mean Corpuscular Volume 92.2 fl (80-100); Monocytes Absolute Auto 1.7 K/mm3 (0.1-0.6); Monocytes Percent Auto 8.7 % (2.6-8.5); Neutrophils Absolute Auto 16.6 K/mm3 (1.3-6.7); Neutrophils Percent Auto 84.4 % (45.5-73.1); Nucleated Red Blood Cells Perc 0.1 % (0.0-0.2); Platelet Count Result 404 k/mm3 (150-375); Red Blood Count 3.06 M/mm3 (4.6-6.20); Red Cell Distribution Width 15.4 % (11.5-14.5); White Blood Count 19.7 K/mm3 (4.5-10.0)
[2023-08-07 06:00] LABS: Albumin Level 3.2 g/dL (3.5-5.1); Anion Gap 7 mmol/L (8-16); Blood Urea Nitrogen 23 mg/dL (9-20); Calcium 9.5 mg/dL (8.4-10.2); Carbon Dioxide 22 mmol/L (22-30); Chloride 104 mmol/L (98-107); Estimated CRCL calculation 54 ml/min; Estimated Glomerular Filt Rate > 60; Glucose 84 mg/dL (65-110); Magnesium 2.5 mg/dL (1.6-2.3); Phosphorus 3.7 mg/dL (2.5-4.5); Potassium 3.8 mmol/L (3.4-5.0); Sodium 133 mmol/L (137-145)
[2023-08-07 06:28] LABS: Anisocytosis 1+ (NORMAL); Crenated RBC 1+ (NORMAL); Hypochromasia 1+ (NORMAL); Platelet Estimate Increased (Adequate); Schistocytes None Seen (NORMAL)
[2023-08-07] MEDS: UMECLIDINIUM/VILANTEROL 62.5-25 MCG ELLIPTA 1 PUFF INHALATION (07:25)
[2023-08-07 08:56] LABS: Glucose Point of Care 109 mg/dl (65-105)
[2023-08-07] MEDS: ALBUTEROL SULFATE NEB 2.5 MG/3 ML INH INHALATION (09:05)
[2023-08-07] MEDS: METOPROLOL TARTRATE 12.5 MG TABLET BY MOUTH ×2 (09:52→21:07)
[2023-08-07] MEDS: guaiFENesin 12 HR 600 MG TABCR PO ×2 (09:52→21:07)
[2023-08-07] MEDS: CLOPIDOGREL BISULFATE 75 MG TABLET BY MOUTH (09:53)
[2023-08-07] MEDS: FERROUS SULFATE 325 MG TABLET DR PO ×2 (09:53→17:36)
[2023-08-07] MEDS: PANTOPRAZOLE 40 MG TABLET PO ×2 (09:53→21:07)
[2023-08-07] MEDS: ASCORBIC ACID 500 MG TABLET PO (09:53)
[2023-08-07] MEDS: FUROSEMIDE 20 MG TABLET BY MOUTH (09:53)
[2023-08-07] MEDS: CHOLECALCIFEROL 1,000 UNITS TABLET 2000 UNITS PO (09:53)
[2023-08-07] MEDS: THERAPEUTIC MULTIVITAMINS/MINERALS TAB (*BKC) 1 TABLET PO (09:53)
[2023-08-07] MEDS: POTASSIUM CHLORIDE 10 MEQ ER TABLET PO (09:53)
[2023-08-07] MEDS: APIXABAN 5 MG TABLET 10 MG PO ×2 (09:53→21:07)
[2023-08-07] MEDS: ZINC SULFATE 220 MG CAPSULE PO (09:54)
[2023-08-07] MEDS: VANCOMYCIN 1,250 MG/NS 250 ML 1,250 MG/250 ML BAG 166.67 MG IVPB (09:54)
--- NOTE | 2023-08-07 10:38 | PM.PNPUL ---
Progress Note: A&P Assessment and Plan (1) Pulmonary embolism: Qualifiers: Acute cor pulmonale presence: without acute cor pulmonale Chronicity: acute Pulmonary embolism type: unspecified Qualified Code(s): I26.99 - Other pulmonary embolism without acute cor pulmonale Code(s): I26.99 - Other pulmonary embolism without acute cor pulmonale Status: Acute Assessment and Plan: Patient presented on 08/04/2023 with right anterior chest pain worse with movement and deep inspiration. CT angiogram with a strong suspicion for PE in the left lower lobe however limited by prominent respiratory motion. Lower extremity Dopplers were negative. Troponins were positive, BNP was 1000 and patient has remained hemodynamically stable on IV heparin. 08/06: Agree with treatment for PE. Patient is currently on IV heparin with no active bleeding. Echocardiogram is pending. Consider changing to DOAC that his insurance will cover. 08/07: Patient was switched to Eliquis and is currently on 10 mg q.12 hours. No evidence of active bleeding. Hemoglobin is decreased from 10.3 on admission to 8.0. Platelets have remained stable in her 404 today. Will continue Eliquis. Discussed with Dr. Singer, will follow with you. (2) Chronic obstructive pulmonary disease: Code(s): J44.9 - Chronic obstructive pulmonary disease, unspecified Status: Acute Assessment and Plan: Patient with a 55 pack year tobacco history, quit 12/06/2016, PFTs in the chart from 07/2017 with severe obstructive abnormality. CT scan with mild to moderate apical predominant centrilobular emphysema. Hypoxemic respiratory failure on 3 L nasal cannula 24-7. ABG on 08/06/2023 7.47/36/65 on 3 L nasal cannula. 08/05/23: Uses Anoro and vest; did not want to use nebulized regimen as it was more expensive and no more effective than Anoro alone. His Jun 08 office note indicates that he uses O2 with sleeping, most nights. 08/06/23: No evidence of a COPD exacerbation at this time. There is no evidence of chronic hypercarbic respiratory failure on his ABG. Plan: I will continue the patient's Anoro Ellipta 62.5-25 at 1 puff q.day. I will discontinue the albuterol and ipratropium nebulizers. I will continue guaifenesin 600 mg p.o. q.12 hours. I do not recommend inhaled or systemic steroids at this time. Goal saturation during the day is 90-94%. I have decreased him to 2 L. I will order an overnight oximetry on 2 L. 08/07: Yesterday patient refused speech therapy evaluation. He had no bedside issues swallowing liquids but refused solids. Patient refused overnight oximetry on 2 L. patient received his standing Zyprexa and also recieved p.r.n. Xanax last night. This morning when I enter the room the patient was on 2 L laying flat in bed and minimally responsive. He had diffuse gurgling decreased breath sounds on the right side. The patient was placed on 15 L nasal cannula, stimulated, oral suction, given a stat DuoNeb and improved. I decreased him to 5 L. chest x-ray demonstrated right lower lobe and middle lobe collapse. I re-evaluated him and he was awake and communicative although sleepy. Plan: I am still concerned about aspiration. The patient has no wheezing has been stable on Anoro Ellipta and will continue. Continue guaifenesin 600 mg p.o. q.12 hours. Goal saturation 90-94%. Patient was refused an overnight oximetry. He has refused CPAP in the past for his obstructive sleep apnea. (3) Atelectasis of right lung: Code(s): J98.11 - Atelectasis Status: Acute Assessment and Plan: He has had pneumonia in the past, had a bronchoscopy 12/2018 for thick secretions in the RLL, no obstructing lesions seen. There was a concern for aspiration at that time. He has continued right lower lobe collapse on his CT scan from 07/01/2021 and chest x-rays from 09/28/2020 and 12/22/2022. 08/06/23: Current CT angiogram of the chest on 08/04/2023 shows minimal
--- NOTE | 2023-08-07 14:19 | PM.IMPN ---
Progress Note: A&P Assessment and Plan (1) Hypoxemia: Code(s): R09.02 - Hypoxemia Status: Acute Assessment and Plan: Patient found poorly responsive and hypoxic this morning. Hypoxia better with high flow O2 to 15L. CXR showing complete collapse of right lung middle and lower lobe. CPT ordered. He was woken up. WHen he ws more awake his hypoxia improved and able to wean o2. Discussed with pulmonary (2) Septicemia: Code(s): A41.9 - Sepsis, unspecified organism Status: Acute Assessment and Plan: Patient with sepsis on admission with tachycardia, leukocytosis, tachypnea, and now with positive BCx. CTA chest showing occluded RML and RLL occluded. Some of this is chronic. Suspected source of sepsis is PNA. BCx 08/04 growing GPC in clusters aerobic only, other set NGTD. ID pending SpCx 08/05 NGTD BCx 08/06 NGTD Started on Rocephin and Azithromycin and Vancomycin added 08/06. Can not exclude aspiration. Patient refused full speech therapy evaluation. Continue IV Vanco. Change to Unasyn (3) Pulmonary embolism: Qualifiers: Acute cor pulmonale presence: without acute cor pulmonale Chronicity: acute Pulmonary embolism type: unspecified Qualified Code(s): I26.99 - Other pulmonary embolism without acute cor pulmonale Code(s): I26.99 - Other pulmonary embolism without acute cor pulmonale Status: Acute Assessment and Plan: The patient presented with complaints of right-sided chest pain. Chest CTA was suspicious for LLL PE but limited due to respiratory motion. He was started on Heparin drip. Elevated Trop could be related to the PE but not a large clot burden. LE venous dopplers negative for DVT. Echo pending. Transitioned to Eliquis (4) Community acquired pneumonia: Qualifiers: Laterality: left Lung location: lower lobe of lung Qualified Code(s): J18.9 - Pneumonia, unspecified organism Code(s): J18.9 - Pneumonia, unspecified organism Status: Acute Assessment and Plan: CTA chest also shows occluded RML and RLL with associated atelectasis as well as patchy LLL infiltrate/atelectasis and mild patchy lingular infiltrate. The RLL findings were seen by CT in 2020 though worse now. WBC was 24K. WBC trending down. BCx and Sputum culture as above Started on azithromycin and ceftriaxone for presumed pneumonia. Vancomycin added when positive BCx Legionella and pneumococcal antigens as well as mycoplasma IgM ordered. Continue scheduled bronchodilators. Mucinex and Cornet ordered to help mobilize secretions. Incentive spirometry encouraged. Pulmonology consulted and appreciate their input Weaned to 2L but needed more O2 this morning. Per pulmonary note, patient only on O2 at night at 3L. (5) Elevated troponin: Code(s): R79.89 - Other specified abnormal findings of blood chemistry Status: Acute Assessment and Plan: Troponin elevated on admission and has climbed to 1.5. EKG showing NSR and overall normal. Echo ordered. Repeat EKG showing more prominent Q waves in inferior leads o/w no change. Cardiology consulted and appreciate their input. They felt Type II IA from PNA and PE. Changed Zocor to Lipitor. On Plavix and Eliquis. Continue Lopressor No plans for further ischemic evaluation. (6) Atelectasis of right lung: Code(s): J98.11 - Atelectasis Status: Acute Assessment and Plan: As above. Dtr state patient has vest therpay at home so will re-order to help with mobilization of secretions. Discussed with Pulmonary. No plans for bronch at this time (7) Chronic obstructive pulmonary disease: Code(s): J44.9 - Chronic obstructive pulmonary disease, unspecified Status: Acute Assessment and Plan: Stable. No wheezing. ABG 08/06 showing 7.47/36/65 3L Continue Anoro and Albuterol/Atrovent nebs. (8) Normocytic anemia: Code(s): D64.9 - Anemia, unspecified
[2023-08-07] MEDS: ATORVASTATIN 40 MG TABLET PO (21:07)
[2023-08-07] MEDS: OLANZapine 2.5 MG TABLET BY MOUTH (21:07)
[2023-08-07] MEDS: AMPICILLIN SULB 3 GM/NS 100 ML 3 GM/100 ML VIAL IVPB (21:12)
[2023-08-07] MEDS: ALPRAZolam (*CRX) 0.5 MG TABLET PO (22:31)
[2023-08-08] VITALS (21 sets, daily range): BP systolic 124–156; BP diastolic 56–99; PULSE 87–115; RESP 18–25; TEMP 36.3–36.9; O2SAT 91–98
[2023-08-08] MEDS: AMPICILLIN SULB 3 GM/NS 100 ML 3 GM/100 ML VIAL IVPB ×4 (04:00→21:13)
--- NOTE | 2023-08-08 08:25 | PM.IMPN ---
Progress Note: A&P Assessment and Plan (1) Hypoxemia: Code(s): R09.02 - Hypoxemia Status: Acute Assessment and Plan: Patient found poorly responsive and hypoxic this morning. Hypoxia better with high flow O2 to 15L. CXR showing complete collapse of right lung middle and lower lobe. CPT ordered. He was woken up. When he was more awake his hypoxia improved and able to wean o2. Discussed with pulmonary, wean oxygen as tolerated, check stool occult (2) Septicemia: Code(s): A41.9 - Sepsis, unspecified organism Status: Acute Assessment and Plan: Patient with sepsis on admission with tachycardia, leukocytosis, tachypnea, and now with positive BCx. CTA chest showing occluded RML and RLL occluded. Some of this is chronic. Suspected source of sepsis is PNA. BCx 08/04 growing GPC in clusters aerobic only, other set NGTD. ID pending SpCx 08/05 NGTD BCx 08/06 NGTD Started on Rocephin and Azithromycin and Vancomycin added 08/06. Can not exclude aspiration. Patient refused full speech therapy evaluation. Continue IV Vanco. Change to Unasyn (3) Pulmonary embolism: Qualifiers: Acute cor pulmonale presence: without acute cor pulmonale Chronicity: acute Pulmonary embolism type: unspecified Qualified Code(s): I26.99 - Other pulmonary embolism without acute cor pulmonale Code(s): I26.99 - Other pulmonary embolism without acute cor pulmonale Status: Acute Assessment and Plan: The patient presented with complaints of right-sided chest pain. Chest CTA was suspicious for LLL PE but limited due to respiratory motion. He was started on Heparin drip. Elevated Trop could be related to the PE but not a large clot burden. LE venous dopplers negative for DVT. Echo pending. Transitioned to Eliquis (4) Community acquired pneumonia: Qualifiers: Laterality: left Lung location: lower lobe of lung Qualified Code(s): J18.9 - Pneumonia, unspecified organism Code(s): J18.9 - Pneumonia, unspecified organism Status: Acute Assessment and Plan: CTA chest also shows occluded RML and RLL with associated atelectasis as well as patchy LLL infiltrate/atelectasis and mild patchy lingular infiltrate. The RLL findings were seen by CT in 2020 though worse now. WBC was 24K. WBC trending down. BCx and Sputum culture as above Started on azithromycin and ceftriaxone for presumed pneumonia. Vancomycin added when positive BCx Legionella and pneumococcal antigens as well as mycoplasma IgM ordered. Continue scheduled bronchodilators. Mucinex and Cornet ordered to help mobilize secretions. Incentive spirometry encouraged. Pulmonology consulted and appreciate their input Weaned to 2L. Per pulmonary note, patient only on O2 at night at 3L. (5) Elevated troponin: Code(s): R79.89 - Other specified abnormal findings of blood chemistry Status: Acute Assessment and Plan: Troponin elevated on admission and has climbed to 1.5. EKG showing NSR and overall normal. Echo ordered. Repeat EKG showing more prominent Q waves in inferior leads o/w no change. Cardiology consulted and appreciate their input. They felt Type II AK from PNA and PE. Changed Zocor to Lipitor. On Plavix and Eliquis. Continue Lopressor No plans for further ischemic evaluation. (6) Atelectasis of right lung: Code(s): J98.11 - Atelectasis Status: Acute Assessment and Plan: As above. Dtr state patient has vest therpay at home so will re-order to help with mobilization of secretions. Discussed with Pulmonary. No plans for bronch at this time (7) Chronic obstructive pulmonary disease: Code(s): J44.9 - Chronic obstructive pulmonary disease, unspecified Status: Acute Assessment and Plan: Stable. No wheezing. ABG 08/06 showing 7.47/36/65 3L Continue Anoro and Albuterol/Atrovent nebs. (8) Normocytic anemia: Code(s): D64.9 - Anemia, uns
[2023-08-08] MEDS: ZINC SULFATE 220 MG CAPSULE PO (08:38)
[2023-08-08] MEDS: APIXABAN 5 MG TABLET 10 MG PO ×2 (08:39→21:04)
[2023-08-08] MEDS: METOPROLOL TARTRATE 12.5 MG TABLET BY MOUTH ×2 (08:39→21:04)
[2023-08-08] MEDS: CLOPIDOGREL BISULFATE 75 MG TABLET BY MOUTH (08:39)
[2023-08-08] MEDS: ASCORBIC ACID 500 MG TABLET PO (08:39)
[2023-08-08] MEDS: POTASSIUM CHLORIDE 10 MEQ ER TABLET PO (08:39)
[2023-08-08] MEDS: PANTOPRAZOLE 40 MG TABLET PO ×2 (08:39→21:04)
[2023-08-08] MEDS: FERROUS SULFATE 325 MG TABLET DR PO ×2 (08:39→18:22)
[2023-08-08] MEDS: guaiFENesin 12 HR 600 MG TABCR PO ×2 (08:39→21:04)
[2023-08-08] MEDS: CHOLECALCIFEROL 1,000 UNITS TABLET 2000 UNITS PO (08:39)
[2023-08-08] MEDS: FUROSEMIDE 20 MG TABLET BY MOUTH (08:39)
[2023-08-08] MEDS: THERAPEUTIC MULTIVITAMINS/MINERALS TAB (*BKC) 1 TABLET PO (08:39)
[2023-08-08 09:03] LABS: Basophils Absolute Auto 0.1 K/mm3 (0.0-0.1); Basophils Percent Auto 0.7 % (0.2-1.2); Eosinophils Absolute Auto 0.1 K/mm3 (0-0.3); Eosinophils Percent Auto 0.3 % (0-4.4); Hematocrit 25.3 % (42.0-52.0); Hemoglobin 7.7 g/dL (14.0-18.0); Immature Granulocyte Absolute 0.13 K/mm3 (0.00-0.031); Immature Granulocyte Percent A 0.7 % (0-0.5); Lymphocytes Percent Auto 3.3 % (18.3-44.2); Mean Corpuscular HGB Conc 30.4 g/dl (32-36); Mean Corpuscular Hemoglobin 26.6 pg (26-34); Mean Corpuscular Volume 87.2 fl (80-100); Mean Platelet Volume 10.4 fl (7.4-10.4); Monocytes Absolute Auto 1.4 K/mm3 (0.1-0.6); Monocytes Percent Auto 7.6 % (2.6-8.5); Neutrophils Absolute Auto 15.7 K/mm3 (1.3-6.7); Neutrophils Percent Auto 87.4 % (45.5-73.1); Platelet Count Result 483 k/mm3 (150-375); Red Cell Distribution Width 15.7 % (11.5-14.5)
[2023-08-08] MEDS: UMECLIDINIUM/VILANTEROL 62.5-25 MCG ELLIPTA 1 PUFF INHALATION (09:18)
[2023-08-08] MEDS: IPRATROPIUM BR 0.02% INH SOLN 0.5 MG/2.5 ML VIAL INHALATION (09:19)
[2023-08-08] MEDS: ALBUTEROL SULFATE NEB 2.5 MG/3 ML INH INHALATION (09:20)
[2023-08-08 09:32] LABS: Hypochromasia 1+ (NORMAL); Platelet Estimate Increased (Adequate); Schistocytes None Seen (NORMAL)
[2023-08-08 09:37] LABS: Anion Gap 8 mmol/L (8-16); Blood Urea Nitrogen 23 mg/dL (9-20); Calcium 9.3 mg/dL (8.4-10.2); Carbon Dioxide 27 mmol/L (22-30); Chloride 103 mmol/L (98-107); Estimated CRCL calculation 47 ml/min; Estimated Glomerular Filt Rate > 60; Glucose 96 mg/dL (65-110); Potassium 3.3 mmol/L (3.4-5.0); Sodium 138 mmol/L (137-145)
--- NOTE | 2023-08-08 09:39 | PM.PNCARD ---
Progress Note: A&P Assessment and Plan (1) Elevated troponin: Code(s): R79.89 - Other specified abnormal findings of blood chemistry Status: Acute Assessment and Plan: Troponin is likely a type 2 infarction for underlying pneumonia and pulmonary embolism. 2D echocardiogram Doppler is still pending. Continue statin/metoprolol. He is not complaining of any angina present. Patient will be on anticoagulation but if it is determined that he did not have a PE and anticoagulation is not given, would start low-dose aspirin 81 mg p.o. daily (2) HTN (hypertension): Qualifiers: Hypertension type: essential hypertension Qualified Code(s): I10 - Essential (primary) hypertension Code(s): I10 - Essential (primary) hypertension Status: Acute Assessment and Plan: Continue metoprolol (3) Community acquired pneumonia: Qualifiers: Laterality: left Lung location: lower lobe of lung Qualified Code(s): J18.9 - Pneumonia, unspecified organism Code(s): J18.9 - Pneumonia, unspecified organism Status: Acute Assessment and Plan: Continue antibiotics (4) Pulmonary embolism: Qualifiers: Acute cor pulmonale presence: without acute cor pulmonale Chronicity: acute Pulmonary embolism type: unspecified Qualified Code(s): I26.99 - Other pulmonary embolism without acute cor pulmonale Code(s): I26.99 - Other pulmonary embolism without acute cor pulmonale Status: Acute Assessment and Plan: Per hospitalist (5) Electrolyte imbalance: Code(s): E87.8 - Other disorders of electrolyte and fluid balance, not elsewhere classified Status: Acute Assessment and Plan: Potassium is at 3.3. KCL 40 mg p.o. times 1 to be given. If unable to take p.o., will give 40 mg IV x1 Subjective Date/time seen: 08/08/23 09:39 Interval history: 78yo male with MAN, COPD, HTN and PAD here for chest pain. He is supposed to wear 3L O2 at night at home but he is noncompliant with this treatment. Date of service 08/08/2023: Echo is pending due to system error. He is more dyspneic and congested. Denies chest pain Review of Systems Review of Systems: All systems reviewed & are unremarkable except as noted in HPI and below Constitutional: Constitutional: Denies body ache(s) and Denies excessive sweating Eyes: Eyes: Denies blurry vision ENT: Reports Normal hearing present Cardiovascular: Cardiovascular: Reports chest pain and Reports dyspnea Respiratory: Respiratory: Reports cough and Reports dyspnea Gastrointestinal: Gastrointestinal: Denies abdominal pain Genitourinary: Genitourinary: Denies hematuria Musculoskeletal: Musculoskeletal: Denies back pain Integumentary/Breasts: Skin/Breast: Denies dry skin Neurologic: Reports Normal hearing present and Denies Abnormal speech present Psychiatric: Psychiatric: Denies anxiety Endocrine: Endocrine: Denies excessive sweating Hematologic/Lymphatic: Hematologic/Lymphatic: Denies easy bleeding Allergic/Immunologic: Allergic/Immunologic: Denies GI upset with certain foods Exam Narrative: Hard of hearing but awake alert oriented Const: General: comfortable and no acute distress HENMT: Face/Nose/Sinus: Normal nares present Mouth: Yes moist mucous membranes Eyes: Sclera: sclerae normal Neck: Neck: supple and no JVD Carotids: bruit Chest: Other: No reproducible chest wall pain to palpation Resp: Effort & Inspection: normal respiratory effort Auscultation: crackles, rales, rhonchi and diminished lung sounds Cardio: Rate: regular rate Rhythm: regular rhythm Heart sounds: Murmur heart sound present systolic GI: Inspection: non-distended Auscultation: normal bowel sounds Skin: General skin exam: normal color Neuro: Cranial nerves: Yes Normal hearing present Speech: normal speech and No Abnormal speech present Extrem: Other: Status post right AKA Psyc
[2023-08-08 09:44] LABS: Vancomycin Trough 8.9 ug/mL (10.0-20.0)
--- NOTE | 2023-08-08 10:00 | PCRCNOTE ---
RT entered pt's room to find pt with labored breathing with lots of coarse, loose secretion breath sounds. Pt received a PRN breathing tx along with daily MDI. Neb tx seemed to help with the labor breathing. CPT was ordered on pt yesterday but RT looked further into the charts and found that patient has a suspected left lower lobe PE which is a contraindication for CPT so this was not performed but pt was able to due some breaths on the cornet and attempted an IS but pt was tired out. RT decided to place venti mask on pt due to mouth breathing to make patient more comfortable with SPO2 reading at 91%. Informed RN of the care that was received to the patient this morning.
--- NOTE | 2023-08-08 10:08 | PM.PNPUL ---
Progress Note: A&P Assessment and Plan (1) Pulmonary embolism: Qualifiers: Acute cor pulmonale presence: without acute cor pulmonale Chronicity: acute Pulmonary embolism type: unspecified Qualified Code(s): I26.99 - Other pulmonary embolism without acute cor pulmonale Code(s): I26.99 - Other pulmonary embolism without acute cor pulmonale Status: Acute Assessment and Plan: Patient presented on 08/04/2023 with right anterior chest pain worse with movement and deep inspiration. Baseline he is on 3 L nasal cannula cT angiogram with a strong suspicion for PE in the left lower lobe however limited by prominent respiratory motion. Lower extremity Dopplers were negative. Troponins were positive, BNP was 1000 and patient has remained hemodynamically stable on IV heparin. 08/06: Agree with treatment for PE. Patient is currently on IV heparin with no active bleeding. Echocardiogram is pending. Consider changing to DOAC that his insurance will cover. 08/07: Patient was switched to Eliquis and is currently on 10 mg q.12 hours. No evidence of active bleeding. Hemoglobin is decreased from 10.3 on admission to 8.0. Platelets have remained stable in her 404 today. Will continue Eliquis. 08/08/23: Currently on 2 L nasal cannula saturation 98%. Hemoglobin is 7.7, platelets 483. Creatinine is 1.0. No active bleeding. Plan: Hemoglobin is dropped to 7.7. Will discuss with hospitalist, consider stool guaiac. Discussed with Dr. Hamilton, will follow with you. (2) Chronic obstructive pulmonary disease: Code(s): J44.9 - Chronic obstructive pulmonary disease, unspecified Status: Acute Assessment and Plan: Patient with a 55 pack year tobacco history, quit 12/06/2016, PFTs in the chart from 07/2017 with severe obstructive abnormality. CT scan with mild to moderate apical predominant centrilobular emphysema. Hypoxemic respiratory failure on 3 L nasal cannula 24-7. ABG on 08/06/2023 7.47/36/65 on 3 L nasal cannula. 08/05/23: Uses Anoro and vest; did not want to use nebulized regimen as it was more expensive and no more effective than Anoro alone. His Jun 08 office note indicates that he uses O2 with sleeping, most nights. 08/06/23: No evidence of a COPD exacerbation at this time. There is no evidence of chronic hypercarbic respiratory failure on his ABG. Plan: I will continue the patient's Anoro Ellipta 62.5-25 at 1 puff q.day. I will discontinue the albuterol and ipratropium nebulizers. I will continue guaifenesin 600 mg p.o. q.12 hours. I do not recommend inhaled or systemic steroids at this time. Goal saturation during the day is 90-94%. I have decreased him to 2 L. I will order an overnight oximetry on 2 L. 08/07: Yesterday patient refused speech therapy evaluation. He had no bedside issues swallowing liquids but refused solids. Patient refused overnight oximetry on 2 L. patient received his standing Zyprexa and also recieved p.r.n. Xanax last night. This morning when I enter the room the patient was on 2 L laying flat in bed and minimally responsive. He had diffuse gurgling decreased breath sounds on the right side. The patient was placed on 15 L nasal cannula, stimulated, oral suction, given a stat DuoNeb and improved. I decreased him to 5 L. chest x-ray demonstrated right lower lobe and middle lobe collapse. I re-evaluated him and he was awake and communicative although sleepy. Plan: I am still concerned about aspiration. The patient has no wheezing has been stable on Anoro Ellipta and will continue. Continue guaifenesin 600 mg p.o. q.12 hours. Goal saturation 90-94%. Patient was refused an overnight oximetry. He has refused CPAP in the past for his obstructive sleep apnea. 08/08/23: Patient was climbing out of bed last night and per the nursing report requires zyprexa as well as is p.r.n. Xanax. Currently he is sleepy. He is on 2 L nasal cannula saturation 98%. I turned him to room air and a
[2023-08-08] MEDS: VANCOMYCIN 1,250 MG/NS 250 ML 1,250 MG/250 ML BAG 166.67 MG IVPB (10:16)
[2023-08-08] MEDS: POTASSIUM CHLORIDE 20 MEQ PACKET (FOR LIQUID) 40 MEQ PO (13:56)
[2023-08-08 14:23] LABS: Mycoplasma IgM Antibody Titer 288 U/mL (<770)
--- NOTE | 2023-08-08 16:46 | PC.NURSE ---
On 08/08/23, the student, Jaida NOWAK [facility], provided care and completed [facility] documentation on this patient. I have reviewed the student's documentation and agree with the findings.
--- NOTE | 2023-08-08 16:48 | PCSTNOTE ---
Therapist spoke with Marysol AGARWAL at 4:30 and recommended consider Soft and Bite-Sized Diet and Mildly Thick Liquids overnight and therapist will be able to complete Bedside Swallow Evaluation in the morning. Consider a Modified Barium Swallow study to further rule out aspiration however there is concern patient will refuse this test as well. Dr. Hamilton notified of recommendations. Speech Therapy to evaluate and follow patient as appropriate.
[2023-08-08] MEDS: OLANZapine 2.5 MG TABLET BY MOUTH (21:04)
[2023-08-08] MEDS: ATORVASTATIN 40 MG TABLET PO (21:04)
[2023-08-08 23:10] LABS: Pneumococcal Antigen Urine Detected (Not Detected)
[2023-08-09] VITALS (13 sets, daily range): BP systolic 134–150; BP diastolic 59–77; PULSE 72–112; RESP 16–26; TEMP 36.1–37.1; O2SAT 91–98
[2023-08-09] MEDS: AMPICILLIN SULB 3 GM/NS 100 ML 3 GM/100 ML VIAL IVPB ×4 (02:55→20:10)
[2023-08-09 05:37] LABS: Basophils Absolute Auto 0.1 K/mm3 (0.0-0.1); Basophils Percent Auto 0.6 % (0.2-1.2); Eosinophils Percent Auto 0.1 % (0-4.4); Hematocrit 23.1 % (42.0-52.0); Hemoglobin 7.1 g/dL (14.0-18.0); Immature Granulocyte Absolute 0.13 K/mm3 (0.00-0.031); Immature Granulocyte Percent A 0.7 % (0-0.5); Lymphocytes Absolute Auto 0.77 K/mm3 (0.9-3.2); Mean Corpuscular HGB Conc 30.7 g/dl (32-36); Mean Corpuscular Hemoglobin 26.2 pg (26-34); Mean Corpuscular Volume 85.2 fl (80-100); Mean Platelet Volume 10.5 fl (7.4-10.4); Monocytes Absolute Auto 1.4 K/mm3 (0.1-0.6); Monocytes Percent Auto 7.5 % (2.6-8.5); Neutrophils Absolute Auto 16.8 K/mm3 (1.3-6.7); Neutrophils Percent Auto 87.1 % (45.5-73.1); Platelet Count Result 543 k/mm3 (150-375); Red Blood Count 2.71 M/mm3 (4.6-6.20); Red Cell Distribution Width 15.7 % (11.5-14.5); White Blood Count 19.3 K/mm3 (4.5-10.0)
[2023-08-09 05:58] LABS: Alanine Aminotransferase 129 U/L (6-50); Albumin Level 3.1 g/dL (3.5-5.1); Alkaline Phosphatase 308 U/L (38-126); Anion Gap 5 mmol/L (8-16); Aspartate Amino Transferase 112 U/L (17-59); Bilirubin,Total 0.5 mg/dL (0.2-1.3); Blood Urea Nitrogen 25 mg/dL (9-20); Calcium 9.6 mg/dL (8.4-10.2); Carbon Dioxide 29 mmol/L (22-30); Chloride 103 mmol/L (98-107); Estimated CRCL calculation 47 ml/min; Estimated Glomerular Filt Rate > 60; Glucose 118 mg/dL (65-110); Potassium 3.4 mmol/L (3.4-5.0); Sodium 137 mmol/L (137-145)
[2023-08-09 06:04] LABS: Legionella pneumophila Ag Ur Not Detected (Not Detected)
[2023-08-09 08:14] LABS: NT Pro B Type Natriuretic Pept 5890 pg/mL (19.9-100)
[2023-08-09] MEDS: CLOPIDOGREL BISULFATE 75 MG TABLET BY MOUTH (09:00)
[2023-08-09] MEDS: PANTOPRAZOLE 40 MG TABLET PO ×2 (09:00→20:13)
[2023-08-09] MEDS: CHOLECALCIFEROL 1,000 UNITS TABLET 2000 UNITS PO (09:00)
[2023-08-09] MEDS: ZINC SULFATE 220 MG CAPSULE PO (09:00)
[2023-08-09] MEDS: ASCORBIC ACID 500 MG TABLET PO (09:00)
[2023-08-09] MEDS: THERAPEUTIC MULTIVITAMINS/MINERALS TAB (*BKC) 1 TABLET PO (09:00)
[2023-08-09] MEDS: FERROUS SULFATE 325 MG TABLET DR PO ×2 (09:00→18:05)
[2023-08-09] MEDS: POTASSIUM CHLORIDE 10 MEQ ER TABLET PO (09:00)
[2023-08-09] MEDS: APIXABAN 5 MG TABLET 10 MG PO (09:00)
[2023-08-09] MEDS: FUROSEMIDE 20 MG TABLET BY MOUTH (09:00)
[2023-08-09] MEDS: guaiFENesin 12 HR 600 MG TABCR PO ×2 (09:00→20:13)
[2023-08-09] MEDS: METOPROLOL TARTRATE 12.5 MG TABLET BY MOUTH ×2 (09:00→20:13)
--- NOTE | 2023-08-09 09:04 | PM.PNCARD ---
Progress Note: A&P Assessment and Plan (1) Elevated troponin: Code(s): R79.89 - Other specified abnormal findings of blood chemistry Status: Acute Assessment and Plan: Troponin is likely a type 2 infarction for underlying pneumonia and pulmonary embolism.Continue statin/metoprolol. He is not complaining of any angina present. Patient will be on anticoagulation but if it is determined that he did not have a PE and anticoagulation is not given, would start low-dose aspirin 81 mg p.o. daily (2) HTN (hypertension): Qualifiers: Hypertension type: essential hypertension Qualified Code(s): I10 - Essential (primary) hypertension Code(s): I10 - Essential (primary) hypertension Status: Acute Assessment and Plan: Continue metoprolol (3) Community acquired pneumonia: Qualifiers: Laterality: left Lung location: lower lobe of lung Qualified Code(s): J18.9 - Pneumonia, unspecified organism Code(s): J18.9 - Pneumonia, unspecified organism Status: Acute Assessment and Plan: Continue antibiotics (4) Pulmonary embolism: Qualifiers: Acute cor pulmonale presence: without acute cor pulmonale Chronicity: acute Pulmonary embolism type: unspecified Qualified Code(s): I26.99 - Other pulmonary embolism without acute cor pulmonale Code(s): I26.99 - Other pulmonary embolism without acute cor pulmonale Status: Acute Assessment and Plan: Per hospitalist (5) Electrolyte imbalance: Code(s): E87.8 - Other disorders of electrolyte and fluid balance, not elsewhere classified Status: Acute Assessment and Plan: Potassium is at 3.4 today. Additional 40 mEq p.o. potassium x1. Cardiology to sign off Subjective Date/time seen: 08/09/23 09:04 Interval history: 78yo male with MAN, COPD, HTN and PAD here for chest pain. He is supposed to wear 3L O2 at night at home but he is noncompliant with this treatment. Date of service 08/08/2023: Echo is pending due to system error. He is more dyspneic and congested. Denies chest pain Date of service 08/09/2023: Appears much better today. Less dyspneic. No chest pain. No shortness of breath Review of Systems Review of Systems: All systems reviewed & are unremarkable except as noted in HPI and below Constitutional: Constitutional: Denies body ache(s) and Denies excessive sweating Eyes: Eyes: Denies blurry vision ENT: Reports Normal hearing present Cardiovascular: Cardiovascular: Reports chest pain and Reports dyspnea Respiratory: Respiratory: Reports cough and Reports dyspnea Gastrointestinal: Gastrointestinal: Denies abdominal pain Genitourinary: Genitourinary: Denies hematuria Musculoskeletal: Musculoskeletal: Denies back pain Integumentary/Breasts: Skin/Breast: Denies dry skin Neurologic: Reports Normal hearing present and Denies Abnormal speech present Psychiatric: Psychiatric: Denies anxiety Endocrine: Endocrine: Denies excessive sweating Hematologic/Lymphatic: Hematologic/Lymphatic: Denies easy bleeding Allergic/Immunologic: Allergic/Immunologic: Denies GI upset with certain foods Exam Narrative: Hard of hearing but awake alert oriented Const: General: comfortable and no acute distress HENMT: Face/Nose/Sinus: Normal nares present Mouth: Yes moist mucous membranes Eyes: Sclera: sclerae normal Neck: Neck: supple and no JVD Carotids: bruit Chest: Other: No reproducible chest wall pain to palpation Resp: Effort & Inspection: normal respiratory effort Auscultation: crackles, rales, rhonchi and diminished lung sounds Cardio: Rate: regular rate Rhythm: regular rhythm Heart sounds: Murmur heart sound present systolic GI: Inspection: non-distended Auscultation: normal bowel sounds Skin: General skin exam: normal color Neuro: Cranial nerves: Yes Normal hearing present Speech: normal speech and No Abnormal speech presen
--- NOTE | 2023-08-09 09:38 | PCSTNOTE ---
Please refer to the Bedside Swallow Evaluation in the EMR. Please note, silent aspiration cannot be ruled out at bedside.
[2023-08-09] MEDS: UMECLIDINIUM/VILANTEROL 62.5-25 MCG ELLIPTA 1 PUFF INHALATION (09:50)
[2023-08-09] MEDS: POTASSIUM CHLORIDE 20 MEQ PACKET (FOR LIQUID) 40 MEQ PO (13:05)
--- NOTE | 2023-08-09 15:25 | PM.IMPN ---
Progress Note: A&P Assessment and Plan (1) Hypoxemia: Code(s): R09.02 - Hypoxemia Status: Acute Assessment and Plan: Patient found poorly responsive and hypoxic this morning. Hypoxia better with high flow O2 to 15L. CXR showing complete collapse of right lung middle and lower lobe. CPT ordered. He was woken up. When he was more awake his hypoxia improved and able to wean o2. Discussed with pulmonary, wean oxygen as tolerated, check stool occult (2) Septicemia: Code(s): A41.9 - Sepsis, unspecified organism Status: Acute Assessment and Plan: Patient with sepsis on admission with tachycardia, leukocytosis, tachypnea, and now with positive BCx. CTA chest showing occluded RML and RLL occluded. Some of this is chronic. Suspected source of sepsis is PNA. BCx 08/04 growing GPC in clusters aerobic only, other set NGTD. ID pending SpCx 08/05 NGTD BCx 08/06 NGTD Started on Rocephin and Azithromycin and Vancomycin added 08/06, de-escalated to unasyn 08/08 ST eval pending 08/09: check PCT, CRP, leuk bumped a bit, but clinically looks much better (3) Pulmonary embolism: Qualifiers: Acute cor pulmonale presence: without acute cor pulmonale Chronicity: acute Pulmonary embolism type: unspecified Qualified Code(s): I26.99 - Other pulmonary embolism without acute cor pulmonale Code(s): I26.99 - Other pulmonary embolism without acute cor pulmonale Status: Acute Assessment and Plan: The patient presented with complaints of right-sided chest pain. Chest CTA was suspicious for LLL PE but limited due to respiratory motion. He was started on Heparin drip. Elevated Trop could be related to the PE but not a large clot burden. LE venous dopplers negative for DVT. Echo pending. Transitioned to Eliquis (4) Community acquired pneumonia: Qualifiers: Laterality: left Lung location: lower lobe of lung Qualified Code(s): J18.9 - Pneumonia, unspecified organism Code(s): J18.9 - Pneumonia, unspecified organism Status: Acute Assessment and Plan: CTA chest also shows occluded RML and RLL with associated atelectasis as well as patchy LLL infiltrate/atelectasis and mild patchy lingular infiltrate. The RLL findings were seen by CT in 2020 though worse now. WBC was 24K. WBC trending down. BCx and Sputum culture as above Started on azithromycin and ceftriaxone for presumed pneumonia. Vancomycin added when positive BCx Legionella and pneumococcal antigens as well as mycoplasma IgM ordered. Continue scheduled bronchodilators. Mucinex and Cornet ordered to help mobilize secretions. Incentive spirometry encouraged. Pulmonology consulted and appreciate their input Weaned to 2L. Per pulmonary note, patient only on O2 at night at 3L. (5) Elevated troponin: Code(s): R79.89 - Other specified abnormal findings of blood chemistry Status: Acute Assessment and Plan: Troponin elevated on admission and has climbed to 1.5. EKG showing NSR and overall normal. Echo ordered. Repeat EKG showing more prominent Q waves in inferior leads o/w no change. Cardiology consulted and appreciate their input. They felt Type II MD from PNA and PE. Changed Zocor to Lipitor. On Plavix and Eliquis. Continue Lopressor No plans for further ischemic evaluation. (6) Atelectasis of right lung: Code(s): J98.11 - Atelectasis Status: Acute Assessment and Plan: As above. Dtr state patient has vest therpay at home so will re-order to help with mobilization of secretions. Discussed with Pulmonary. No plans for bronch at this time (7) Chronic obstructive pulmonary disease: Code(s): J44.9 - Chronic obstructive pulmonary disease, unspecified Status: Acute Assessment and Plan: Stable. No wheezing. ABG 08/06 showing 7.47/36/65 3L Continue Anoro and Albuterol/Atrovent nebs. (8) Normocytic anemia: Code(s): D64.9 - Anemia
--- NOTE | 2023-08-09 16:13 | PM.PNPUL ---
Progress Note: A&P Assessment and Plan (1) Pulmonary embolism: Qualifiers: Acute cor pulmonale presence: without acute cor pulmonale Chronicity: acute Pulmonary embolism type: unspecified Qualified Code(s): I26.99 - Other pulmonary embolism without acute cor pulmonale Code(s): I26.99 - Other pulmonary embolism without acute cor pulmonale Status: Acute Assessment and Plan: Patient presented on 08/04/2023 with right anterior chest pain worse with movement and deep inspiration. Baseline he is on 3 L nasal cannula cT angiogram with a strong suspicion for PE in the left lower lobe however limited by prominent respiratory motion. Lower extremity Dopplers were negative. Troponins were positive, BNP was 1000 and patient has remained hemodynamically stable on IV heparin. 08/06: Agree with treatment for PE. Patient is currently on IV heparin with no active bleeding. Echocardiogram is pending. Consider changing to DOAC that his insurance will cover. 08/07: Patient was switched to Eliquis and is currently on 10 mg q.12 hours. No evidence of active bleeding. Hemoglobin is decreased from 10.3 on admission to 8.0. Platelets have remained stable in her 404 today. Will continue Eliquis. 08/08/23: Currently on 2 L nasal cannula saturation 98%. Hemoglobin is 7.7, platelets 483. Creatinine is 1.0. No active bleeding. Plan: Hemoglobin is dropped to 7.7. Will discuss with hospitalist, consider stool guaiac. 08/09: I reviewed this CT of the angiogram of the chest from 08/04/2023 with radiologist. There is an area in the left lower lobe artery next to a bronchus that appears to have a filling defect but there is motion artifact in this area. In addition the same artery has contrast distal to this possible filling defect. His impression was that there was no definitive PE but this was limited by motion artifact. There were other no other filling defects in the right or left lung. I will repeat a CT angiogram of the chest today to see if there are any definitive PEs. I will obtain upper and lower extremity Dopplers tomorrow to assess for additional clots. The patient has no active bleeding was hemoglobin is down to 7.1. Stool guaiac is pending. I will obtain a CT abdomen pelvis to look for any fluid collections. Discussed with Dr. Hamilton, will follow with you. (2) Chronic obstructive pulmonary disease: Code(s): J44.9 - Chronic obstructive pulmonary disease, unspecified Status: Acute Assessment and Plan: Patient with a 55 pack year tobacco history, quit 12/06/2016, PFTs in the chart from 07/2017 with severe obstructive abnormality. CT scan with mild to moderate apical predominant centrilobular emphysema. Hypoxemic respiratory failure on 3 L nasal cannula 24-7. ABG on 08/06/2023 7.47/36/65 on 3 L nasal cannula. 08/05/23: Uses Anoro and vest; did not want to use nebulized regimen as it was more expensive and no more effective than Anoro alone. His Jun 08 office note indicates that he uses O2 with sleeping, most nights. 08/06/23: No evidence of a COPD exacerbation at this time. There is no evidence of chronic hypercarbic respiratory failure on his ABG. Plan: I will continue the patient's Anoro Ellipta 62.5-25 at 1 puff q.day. I will discontinue the albuterol and ipratropium nebulizers. I will continue guaifenesin 600 mg p.o. q.12 hours. I do not recommend inhaled or systemic steroids at this time. Goal saturation during the day is 90-94%. I have decreased him to 2 L. I will order an overnight oximetry on 2 L. 08/07: Yesterday patient refused speech therapy evaluation. He had no bedside issues swallowing liquids but refused solids. Patient refused overnight oximetry on 2 L. patient received his standing Zyprexa and also recieved p.r.n. Xanax last night. This morning when I enter the room the patient was on 2 L laying flat in bed and minimally responsive. He had diffuse gurgling decreased breath sounds
[2023-08-09 17:13] LABS: Basophils Absolute Auto 0.1 K/mm3 (0.0-0.1); Basophils Percent Auto 0.6 % (0.2-1.2); Eosinophils Percent Auto 0.2 % (0-4.4); Hematocrit 21.2 % (42.0-52.0); Immature Granulocyte Absolute 0.13 K/mm3 (0.00-0.031); Immature Granulocyte Percent A 0.7 % (0-0.5); Lymphocytes Absolute Auto 0.67 K/mm3 (0.9-3.2); Lymphocytes Percent Auto 3.7 % (18.3-44.2); Mean Corpuscular HGB Conc 30.7 g/dl (32-36); Mean Corpuscular Hemoglobin 26.2 pg (26-34); Mean Corpuscular Volume 85.5 fl (80-100); Mean Platelet Volume 10.6 fl (7.4-10.4); Monocytes Absolute Auto 1.3 K/mm3 (0.1-0.6); Monocytes Percent Auto 7.3 % (2.6-8.5); Neutrophils Absolute Auto 15.9 K/mm3 (1.3-6.7); Neutrophils Percent Auto 87.5 % (45.5-73.1); Platelet Count Result 580 k/mm3 (150-375); Red Blood Count 2.48 M/mm3 (4.6-6.20); Red Cell Distribution Width 15.9 % (11.5-14.5); White Blood Count 18.2 K/mm3 (4.5-10.0)
[2023-08-09 17:31] LABS: Alanine Aminotransferase 133 U/L (6-50); Alkaline Phosphatase 298 U/L (38-126); Anion Gap 2 mmol/L (8-16); Aspartate Amino Transferase 117 U/L (17-59); Bilirubin,Total 0.5 mg/dL (0.2-1.3); Blood Urea Nitrogen 26 mg/dL (9-20); Calcium 9.7 mg/dL (8.4-10.2); Carbon Dioxide 31 mmol/L (22-30); Chloride 103 mmol/L (98-107); Estimated CRCL calculation 43 ml/min; Estimated Glomerular Filt Rate > 60; Glucose 110 mg/dL (65-110); Sodium 136 mmol/L (137-145)
[2023-08-09 17:34] LABS: Hemoglobin 6.5 g/dL (14.0-18.0)
[2023-08-09 17:38] LABS: CRP 15.9 mg/dL (<1.0)
[2023-08-09 18:45] LABS: Procalcitonin 0.5 ng/mL
[2023-08-09 19:00] LABS: Hepatitis B Surface Antigen Negative (Negative)
[2023-08-09 19:06] LABS: HAV RESULT Negative (Negative); Hepatitis B Core IgM Result Negative (Negative)
[2023-08-09 19:18] LABS: Hepatitis C Virus Antibody Negative (Negative)
[2023-08-09] MEDS: OLANZapine 2.5 MG TABLET BY MOUTH (20:12)
[2023-08-09] MEDS: ALPRAZolam (*CRX) 0.5 MG TABLET PO (20:13)
[2023-08-09] MEDS: ATORVASTATIN 40 MG TABLET PO (20:13)
[2023-08-10] VITALS (14 sets, daily range): BP systolic 125–138; BP diastolic 55–78; PULSE 82–105; RESP 14–24; TEMP 36.2–37; O2SAT 91–98; BMI 18.3
[2023-08-10 03:14] LABS: Appearance Urine Clear (Clear); Bacteria Urine None Seen /hpf; Bilirubin Urine Negative (Negative); Blood Urine 1+ (Negative); Color Urine Yellow (Yellow); Glucose Urine UA Negative (Negative); Ketones Urine Trace mg/dL (Negative); Leukocyte Esterase Ur Negative LEU/UL (NEGATIVE); Nitrate Urine Negative (Negative); Non Pathogenic Casts 0-2; Protein Urine 2+ mg/dL (Negative); RBC Urine 0-2 /hpf (0-2); Squamous Epithelial Cell Urine None seen /hpf (Few); WBC Urine 0-5 /hpf (0-3); pH Urine 7.5 (5.0-9.0)
[2023-08-10 03:18] LABS: Specific Grav Ur 1.043 (1.001-1.035)
[2023-08-10 03:19] LABS: Add Urine Microscopic? YES
[2023-08-10] MEDS: AMPICILLIN SULB 3 GM/NS 100 ML 3 GM/100 ML VIAL IVPB (04:49)
[2023-08-10 04:54] LABS: Glucose Point of Care 148 mg/dl (65-105)
[2023-08-10] MEDS: ALBUTEROL SULFATE NEB 2.5 MG/3 ML INH INHALATION (05:08)
[2023-08-10] MEDS: IPRATROPIUM BR 0.02% INH SOLN 0.5 MG/2.5 ML VIAL INHALATION (05:09)
--- NOTE | 2023-08-10 05:11 | PC.NURSE ---
PREFORMING MACHINE OPERATOR NOTIFIED TO DRAW BLOOD AT 0550
[2023-08-10 06:14] LABS: Basophils Absolute Auto 0.2 K/mm3 (0.0-0.1); Basophils Percent Auto 0.7 % (0.2-1.2); Eosinophils Absolute Auto 0.1 K/mm3 (0-0.3); Eosinophils Percent Auto 0.2 % (0-4.4); Hematocrit 27.9 % (42.0-52.0); Hemoglobin 8.7 g/dL (14.0-18.0); Immature Granulocyte Absolute 0.25 K/mm3 (0.00-0.031); Immature Granulocyte Percent A 1.1 % (0-0.5); Lymphocytes Absolute Auto 0.97 K/mm3 (0.9-3.2); Lymphocytes Percent Auto 4.1 % (18.3-44.2); Mean Corpuscular HGB Conc 31.2 g/dl (32-36); Mean Corpuscular Hemoglobin 27.9 pg (26-34); Mean Corpuscular Volume 89.4 fl (80-100); Mean Platelet Volume 10.7 fl (7.4-10.4); Monocytes Absolute Auto 1.8 K/mm3 (0.1-0.6); Monocytes Percent Auto 7.6 % (2.6-8.5); Neutrophils Absolute Auto 20.3 K/mm3 (1.3-6.7); Neutrophils Percent Auto 86.3 % (45.5-73.1); Platelet Count Result 593 k/mm3 (150-375); Red Blood Count 3.12 M/mm3 (4.6-6.20); Red Cell Distribution Width 16.4 % (11.5-14.5); White Blood Count 23.6 K/mm3 (4.5-10.0)
[2023-08-10 06:28] LABS: Alanine Aminotransferase 117 U/L (6-50); Albumin Level 3.2 g/dL (3.5-5.1); Alkaline Phosphatase 270 U/L (38-126); Anion Gap 12 mmol/L (8-16); Aspartate Amino Transferase 79 U/L (17-59); Bilirubin,Total 0.5 mg/dL (0.2-1.3); Blood Urea Nitrogen 27 mg/dL (9-20); Calcium 9.5 mg/dL (8.4-10.2); Carbon Dioxide 23 mmol/L (22-30); Chloride 105 mmol/L (98-107); Estimated CRCL calculation 43 ml/min; Estimated Glomerular Filt Rate > 60; Glucose 116 mg/dL (65-110); Potassium 3.7 mmol/L (3.4-5.0); Sodium 140 mmol/L (137-145)
[2023-08-10 07:19] LABS: Platelet Estimate Increased (Adequate)
[2023-08-10 07:20] LABS: Anisocytosis 1+ (NORMAL); Hypochromasia 2+ (NORMAL); Large Platelets Present; Schistocytes None Seen (NORMAL)
[2023-08-10] MEDS: UMECLIDINIUM/VILANTEROL 62.5-25 MCG ELLIPTA 1 PUFF INHALATION (08:14)
--- NOTE | 2023-08-10 08:31 | PM.IMPN ---
Progress Note: A&P Assessment and Plan (1) Septicemia: Code(s): A41.9 - Sepsis, unspecified organism Status: Acute Assessment and Plan: Patient with sepsis on admission with tachycardia, leukocytosis, tachypnea, and now with positive BCx. CTA chest showing occluded RML and RLL occluded. Some of this is chronic. Suspected source of sepsis is PNA. BCx 08/04 growing GPC in clusters aerobic only, other set NGTD. ID pending SpCx 08/05 NGTD BCx 08/06 NGTD Started on Rocephin and Azithromycin and Vancomycin added 08/06, de-escalated to unasyn 08/08 ST eval pending 08/09: check PCT, CRP, leuk bumped a bit, but clinically looks much better 08/10: leuk continues to trend up, diff not impressive, no fevers, unsure of clinical significance--viral infection? Check COVID/RSV/flu, repeat PCT/CRP pending, cont unasyn for now, resend urine and culture, CTA chest, abd, pelvis unremarkable for new developments, showed cont lung collapse, some pleural effusions, possible pyelo/bladder infection, will d/c unasyn in favor of meropenem to cover possible pneumococcal infection in urine d/t pneumococcal ag found in urine (2) Normocytic anemia: Code(s): D64.9 - Anemia, unspecified Status: Acute Assessment and Plan: No recent HH to compare but normal last year. Hgb 10.3 on admission and has dropped today to 8.0 B12/Folate normal. Iron studies showing low TIBC and low iron. Ferritin 32 to suggest a component of iron deficiency. Continue Protonix. Continue iron as he tolerates. Check stool occult. 08/09: hgb dropped below 7, transfused 1 unit, improved to 8.7, eliquis and plavix on hold, unsure of etiology, stool occult still pending (3) Hypoxemia: Code(s): R09.02 - Hypoxemia Status: Acute Assessment and Plan: Patient found poorly responsive and hypoxic. Hypoxia better with high flow O2 to 15L. CXR showing complete collapse of right lung middle and lower lobe. Discussed with pulmonary, wean oxygen as tolerated, check stool occult Stable, improving, CXR and CTA show continued collapse (4) Pulmonary embolism: Qualifiers: Acute cor pulmonale presence: without acute cor pulmonale Chronicity: acute Pulmonary embolism type: unspecified Qualified Code(s): I26.99 - Other pulmonary embolism without acute cor pulmonale Code(s): I26.99 - Other pulmonary embolism without acute cor pulmonale Status: Acute Assessment and Plan: The patient presented with complaints of right-sided chest pain. Chest CTA was suspicious for LLL PE but limited due to respiratory motion. He was started on Heparin drip. Elevated Trop could be related to the PE but not a large clot burden. LE venous dopplers negative for DVT. Echo pending. Transitioned to Eliquis 08/09: hgb dropped, transfused 1 unit pRBCs, unsure of etiology, hold eliquis temporarily 08/10: cont to hold eliquis (5) Community acquired pneumonia: Qualifiers: Laterality: left Lung location: lower lobe of lung Qualified Code(s): J18.9 - Pneumonia, unspecified organism Code(s): J18.9 - Pneumonia, unspecified organism Status: Acute Assessment and Plan: CTA chest also shows occluded RML and RLL with associated atelectasis as well as patchy LLL infiltrate/atelectasis and mild patchy lingular infiltrate. The RLL findings were seen by CT in 2020 though worse now. WBC was 24K. WBC trending down. BCx and Sputum culture as above Started on azithromycin and ceftriaxone for presumed pneumonia. Vancomycin added when positive BCx Legionella and pneumococcal antigens as well as mycoplasma IgM ordered. Continue scheduled bronchodilators. Mucinex and Cornet ordered to help mobilize secretions. Incentive spirometry encouraged. Pulmonology consulted and appreciate their input Weaned to 2L. Per pulmonary note, patient only on O2 at night at 3L. 08/09: some concern that PE was possible overread on CTA, repeat CTA ordered unimpr
[2023-08-10] MEDS: MEROPENEM 1 GM/NS 100 ML 1 GM/100 ML BAG IVPB ×2 (09:01→20:02)
--- NOTE | 2023-08-10 09:47 | PM.PNPUL ---
Progress Note: A&P Assessment and Plan (1) Pneumonia: Code(s): J18.9 - Pneumonia, unspecified organism Status: Acute Assessment and Plan: He has had pneumonia in the past, had a bronchoscopy 12/2018 for thick secretions in the RLL, no obstructing lesions seen. There was a concern for aspiration at that time. He has continued right lower lobe collapse on his CT scan from 07/01/2021 and chest x-rays from 09/28/2020 and 12/22/2022. 08/06/23: Current CT angiogram of the chest on 08/04/2023 shows minimal change in his right lower lobe collapse. He has been bronch previously with no obstructing lesion. There has been continued concern for aspiration. He also has some patchy left lower lobe infiltrate which may represent a pneumonia. Plan: Patient is afebrile. His white blood cell count is 20.2, he continues on ceftriaxone and azithromycin since 08/04/2023, day 3. There has been concern for aspiration given the patient's neck deformity and agree with swallow evaluation. I will order chest x-ray on 08/07/2023. 08/07: Chest x-ray demonstrated right lower lobe and middle lobe collapse. There has been no change in his right lower lobe middle lobe collapse on chest x-ray from 08/04/2023, 12/22/2022 or 09/28/2020. The patient has very severe torticollis and kyphosis. He is intermittently getting sedated and may be aspirating. He is not a candidate for noninvasive ventilation as he has refused this in the past. He has a poor cough. Plan: Continue ceftriaxone and azithromycin, day 4. He has refused a full swallow evaluation by speech therapy. Once he is awake, treatment goals and level of care should be discussed with the patient and his family. 08/08 from the bedside nurse patient had some clinical aspiration with his pills last night. Plan: Patient was started on Ceftriaxone and azithromycin on 08/04, this was continued through 08/07. He was changed to Unasyn on 08/07 for concerns of aspiration. Day 5 total antibiotics. Patient had Gram-positive cocci in his blood from 08/04 which were identified as Staph auricularis. He was placed on vancomycin on 08/06. I will discontinue vancomycin as his repeat cultures on 08/06/2023 are no growth and Staph auricularis likely represents a contaminant. 08/09 patient has been on antibiotics since 08/04 (day 6). He is afebrile, remains with white blood cell count 19.3. His urine pneumococcal antigen has come back positive. Clinically is improved. He now has elevated LFTs. Plan: Discussed with hospitalist and procalcitonin, CRP and abdominal ultrasound have been ordered. In addition CT angiogram of the chest ordered to assess for pleural effusions or lung abscess. CT of the abdomen and pelvis have been ordered. Urine culture has been ordered. 08/10: CT angiogram of the chest yesterday demonstrates continued right lower lobe and left lower lobe consolidative infiltrates. The right pleural effusion has increased since 08/04/2023. Overall the patient has improved clinically with improved oxygenation but he remains with a leukocytosis and these infiltrates. Procalcitonin 0.5, CRP 14.1 Plan: Currently patient is on Unasyn, day 7 antibiotics. He remains with a leukocytosis and enlarging right pleural effusion. The patient received Plavix on 08/09/2023 at 9:00 a.m. and apixaban on 08/09 at 9:00 a.m.. The patient should have a right thoracentesis to exclude a complex right pleural effusion or empyema and I talked to ultrasound and the weight for a ultrasound-guided thoracentesis is 5 days after Plavix. I spoke to Radiology and they would be comfortable performing this test at 4 days on 08/13/2023. I have placed orders for ultrasound-guided thoracentesis. Pulmonary inpatient services will resume on 08/13/2023. Call with questions. (2) Pulmonary embolism: Qualifiers: Acute cor pulmonale presence: without acute cor pulmonale Chronicity: acute Pulmonary embolism type: unspecified Qualifie
[2023-08-10 10:06] LABS: Procalcitonin 0.4 ng/mL
[2023-08-10 10:12] LABS: CRP 14.1 mg/dL (<1.0)
[2023-08-10 11:28] LABS: Influenza A QL RT-PCR Negative (Negative); Influenza B QL RT-PCR Negative (Negative); RSV RNA, RT-PCR Negative (Negative); SARS-CoV-2 RNA PCR Negative (Negative)
--- NOTE | 2023-08-10 12:33 | P.CDI_ITS ---
CDI Query Clarification Request BMI 18.4 Nutritional Diagnostic Statement: Severe Malnutrition as related to inadequate protein-energy intake with increased protein energy needs in setting of chronic disease or condition (COPD) as evidenced by minimal oral intake < 75% of EER for > 1 month; severe subcutaneous fat loss (orbital fat pads) and muscle wasting (clavicle region). For further information please refer to the comprehensive nutrition assessment. Please clarify severity of protein calorie malnutrition: * Mild * Moderate * Severe * Other/ Unspecified <Celine Varghese RN - Last Filed: 08/10/23 12:40> Clarified Diagnosis Clarified Diagnosis: severe malnutrition <Hedy Hamilton DO - Last Filed: 08/10/23 14:08>
[2023-08-10] MEDS: FERROUS SULFATE 325 MG TABLET DR PO (16:09)
[2023-08-10] MEDS: METOPROLOL TARTRATE 12.5 MG TABLET BY MOUTH (20:00)
[2023-08-10] MEDS: PANTOPRAZOLE 40 MG TABLET PO (20:00)
[2023-08-10] MEDS: OLANZapine 5 MG TABLET BY MOUTH (20:00)
[2023-08-10] MEDS: ATORVASTATIN 40 MG TABLET PO (20:00)
[2023-08-10] MEDS: guaiFENesin 12 HR 600 MG TABCR PO (20:09)
[2023-08-10 22:21] LABS: Glucose Point of Care 101 mg/dl (65-105)
[2023-08-11] VITALS (9 sets, daily range): BP systolic 121–157; BP diastolic 50–88; PULSE 75–99; RESP 16–18; TEMP 36.5–37.1; O2SAT 93–99
[2023-08-11 04:56] LABS: Basophils Absolute Auto 0.1 K/mm3 (0.0-0.1); Basophils Percent Auto 0.6 % (0.2-1.2); Eosinophils Absolute Auto 0.1 K/mm3 (0-0.3); Eosinophils Percent Auto 0.6 % (0-4.4); Hematocrit 26.8 % (42.0-52.0); Hemoglobin 8.2 g/dL (14.0-18.0); Immature Granulocyte Absolute 0.29 K/mm3 (0.00-0.031); Immature Granulocyte Percent A 1.3 % (0-0.5); Lymphocytes Absolute Auto 0.97 K/mm3 (0.9-3.2); Lymphocytes Percent Auto 4.3 % (18.3-44.2); Mean Corpuscular HGB Conc 30.6 g/dl (32-36); Mean Corpuscular Hemoglobin 26.7 pg (26-34); Mean Corpuscular Volume 87.3 fl (80-100); Mean Platelet Volume 10.5 fl (7.4-10.4); Monocytes Absolute Auto 1.3 K/mm3 (0.1-0.6); Monocytes Percent Auto 5.8 % (2.6-8.5); Neutrophils Absolute Auto 19.5 K/mm3 (1.3-6.7); Neutrophils Percent Auto 87.4 % (45.5-73.1); Nucleated Red Blood Cells Perc 0.1 % (0.0-0.2); Platelet Count Result 716 k/mm3 (150-375); Red Blood Count 3.07 M/mm3 (4.6-6.20); Red Cell Distribution Width 16.1 % (11.5-14.5); White Blood Count 22.4 K/mm3 (4.5-10.0)
[2023-08-11 05:05] LABS: INR 1.7; Prothrombin Time 21.4 Seconds (11.1-14.7)
[2023-08-11 05:06] LABS: Partial Thromboplastin Time 43.8 SECONDS (22.3-36.8)
[2023-08-11 05:10] LABS: Alanine Aminotransferase 121 U/L (6-50); Albumin Level 3.3 g/dL (3.5-5.1); Alkaline Phosphatase 253 U/L (38-126); Anion Gap 7 mmol/L (8-16); Aspartate Amino Transferase 96 U/L (17-59); Bilirubin,Total 0.6 mg/dL (0.2-1.3); Blood Urea Nitrogen 27 mg/dL (9-20); Calcium 9.6 mg/dL (8.4-10.2); Carbon Dioxide 29 mmol/L (22-30); Chloride 101 mmol/L (98-107); Estimated CRCL calculation 40 ml/min; Estimated Glomerular Filt Rate 58; Glucose 96 mg/dL (65-110); Potassium 3.7 mmol/L (3.4-5.0); Sodium 137 mmol/L (137-145)
[2023-08-11 05:23] LABS: Hypochromasia 2+ (NORMAL); Platelet Estimate Increased (Adequate); Schistocytes None Seen (NORMAL)
[2023-08-11] MEDS: PANTOPRAZOLE 40 MG TABLET PO ×2 (08:27→19:39)
[2023-08-11] MEDS: CHOLECALCIFEROL 1,000 UNITS TABLET 2000 UNITS PO (08:27)
[2023-08-11] MEDS: METOPROLOL TARTRATE 12.5 MG TABLET BY MOUTH ×2 (08:27→19:39)
[2023-08-11] MEDS: FERROUS SULFATE 325 MG TABLET DR PO ×2 (08:27→17:08)
[2023-08-11] MEDS: MEROPENEM 1 GM/NS 100 ML 1 GM/100 ML BAG IVPB ×2 (08:28→19:28)
[2023-08-11] MEDS: ZINC SULFATE 220 MG CAPSULE PO (08:28)
[2023-08-11] MEDS: POTASSIUM CHLORIDE 10 MEQ ER TABLET PO (08:28)
[2023-08-11] MEDS: ASCORBIC ACID 500 MG TABLET PO (08:28)
[2023-08-11] MEDS: FUROSEMIDE 20 MG TABLET BY MOUTH (08:28)
[2023-08-11] MEDS: guaiFENesin 12 HR 600 MG TABCR PO ×2 (08:28→19:39)
[2023-08-11] MEDS: THERAPEUTIC MULTIVITAMINS/MINERALS TAB (*BKC) 1 TABLET PO (08:28)
--- NOTE | 2023-08-11 09:00 | PM.IMPN ---
Progress Note: A&P Assessment and Plan (1) Septicemia: Code(s): A41.9 - Sepsis, unspecified organism Status: Acute Assessment and Plan: Patient with sepsis on admission with tachycardia, leukocytosis, tachypnea, and now with positive BCx. CTA chest showing occluded RML and RLL occluded. Some of this is chronic. Suspected source of sepsis is PNA. BCx 08/04 growing GPC in clusters aerobic only, other set NGTD. ID pending SpCx 08/05 NGTD BCx 08/06 NGTD Started on Rocephin and Azithromycin and Vancomycin added 08/06, de-escalated to unasyn 08/08 ST eval pending 08/09: check PCT, CRP, leuk bumped a bit, but clinically looks much better 08/10: leuk continues to trend up, diff not impressive, no fevers, unsure of clinical significance--viral infection? Check COVID/RSV/flu, repeat PCT/CRP pending, cont unasyn for now, resend urine and culture, CTA chest, abd, pelvis unremarkable for new developments, showed cont lung collapse, some pleural effusions, possible pyelo/bladder infection, will d/c unasyn in favor of meropenem to cover possible pneumococcal infection in urine d/t pneumococcal ag found in urine 08/11: leuk slightly improved on meropenem, cont this, monitor closely, clinically stable/improving (2) Normocytic anemia: Code(s): D64.9 - Anemia, unspecified Status: Acute Assessment and Plan: No recent HH to compare but normal last year. Hgb 10.3 on admission and has dropped today to 8.0 B12/Folate normal. Iron studies showing low TIBC and low iron. Ferritin 32 to suggest a component of iron deficiency. Continue Protonix. Continue iron as he tolerates. Check stool occult. 08/09: hgb dropped below 7, transfused 1 unit, improved to 8.7, eliquis and plavix on hold, unsure of etiology, stool occult still pending 08/11: stable, monitor (3) Hypoxemia: Code(s): R09.02 - Hypoxemia Status: Acute Assessment and Plan: Patient found poorly responsive and hypoxic. Hypoxia better with high flow O2 to 15L. CXR showing complete collapse of right lung middle and lower lobe. Discussed with pulmonary, wean oxygen as tolerated, check stool occult Stable, improving, CXR and CTA show continued collapse Weaned to 2L nc (4) Pulmonary embolism: Qualifiers: Acute cor pulmonale presence: without acute cor pulmonale Chronicity: acute Pulmonary embolism type: unspecified Qualified Code(s): I26.99 - Other pulmonary embolism without acute cor pulmonale Code(s): I26.99 - Other pulmonary embolism without acute cor pulmonale Status: Acute Assessment and Plan: The patient presented with complaints of right-sided chest pain. Chest CTA was suspicious for LLL PE but limited due to respiratory motion. He was started on Heparin drip. Elevated Trop could be related to the PE but not a large clot burden. LE venous dopplers negative for DVT. Echo pending. Transitioned to Eliquis 08/09: hgb dropped, transfused 1 unit pRBCs, unsure of etiology, hold eliquis temporarily 08/10: cont to hold eliquis (5) Community acquired pneumonia: Qualifiers: Laterality: left Lung location: lower lobe of lung Qualified Code(s): J18.9 - Pneumonia, unspecified organism Code(s): J18.9 - Pneumonia, unspecified organism Status: Acute Assessment and Plan: CTA chest also shows occluded RML and RLL with associated atelectasis as well as patchy LLL infiltrate/atelectasis and mild patchy lingular infiltrate. The RLL findings were seen by CT in 2020 though worse now. WBC was 24K. WBC trending down. BCx and Sputum culture as above Started on azithromycin and ceftriaxone for presumed pneumonia. Vancomycin added when positive BCx Legionella and pneumococcal antigens as well as mycoplasma IgM ordered. Continue scheduled bronchodilators. Mucinex and Cornet ordered to help mobilize secretions. Incentive spirometry encouraged. Pulmonology consulted and appreciate their input Weaned to 2
[2023-08-11] MEDS: OLANZapine 5 MG TABLET BY MOUTH (19:39)
[2023-08-11] MEDS: ATORVASTATIN 40 MG TABLET PO (19:39)
[2023-08-12] VITALS (7 sets, daily range): BP systolic 100–156; BP diastolic 37–69; PULSE 74–90; RESP 16–18; TEMP 36.4–36.9; O2SAT 94–100
[2023-08-12 05:35] LABS: Basophils Absolute Auto 0.2 K/mm3 (0.0-0.1); Basophils Percent Auto 0.9 % (0.2-1.2); Eosinophils Absolute Auto 0.5 K/mm3 (0-0.3); Hematocrit 24.2 % (42.0-52.0); Hemoglobin 7.3 g/dL (14.0-18.0); Immature Granulocyte Absolute 0.17 K/mm3 (0.00-0.031); Lymphocytes Absolute Auto 0.88 K/mm3 (0.9-3.2); Lymphocytes Percent Auto 5.4 % (18.3-44.2); Mean Corpuscular HGB Conc 30.2 g/dl (32-36); Mean Corpuscular Hemoglobin 26.5 pg (26-34); Mean Platelet Volume 10.6 fl (7.4-10.4); Monocytes Absolute Auto 1.2 K/mm3 (0.1-0.6); Monocytes Percent Auto 7.4 % (2.6-8.5); Neutrophils Absolute Auto 13.5 K/mm3 (1.3-6.7); Neutrophils Percent Auto 82.3 % (45.5-73.1); Platelet Count Result 711 k/mm3 (150-375); Red Blood Count 2.75 M/mm3 (4.6-6.20); Red Cell Distribution Width 16.5 % (11.5-14.5); White Blood Count 16.4 K/mm3 (4.5-10.0)
[2023-08-12 05:47] LABS: Alanine Aminotransferase 90 U/L (6-50); Alkaline Phosphatase 198 U/L (38-126); Anion Gap 8 mmol/L (8-16); Aspartate Amino Transferase 56 U/L (17-59); Bilirubin,Total 0.6 mg/dL (0.2-1.3); Blood Urea Nitrogen 22 mg/dL (9-20); Calcium 9.4 mg/dL (8.4-10.2); Carbon Dioxide 27 mmol/L (22-30); Chloride 101 mmol/L (98-107); Estimated CRCL calculation 40 ml/min; Estimated Glomerular Filt Rate 58; Glucose 72 mg/dL (65-110); Potassium 3.2 mmol/L (3.4-5.0); Sodium 136 mmol/L (137-145)
[2023-08-12] MEDS: PANTOPRAZOLE 40 MG TABLET PO ×2 (08:20→19:48)
[2023-08-12] MEDS: CHOLECALCIFEROL 1,000 UNITS TABLET 2000 UNITS PO (08:20)
[2023-08-12] MEDS: FERROUS SULFATE 325 MG TABLET DR PO ×2 (08:20→16:54)
[2023-08-12] MEDS: MEROPENEM 1 GM/NS 100 ML 1 GM/100 ML BAG IVPB ×2 (08:20→20:02)
[2023-08-12] MEDS: guaiFENesin 12 HR 600 MG TABCR PO ×2 (08:20→19:48)
[2023-08-12] MEDS: METOPROLOL TARTRATE 12.5 MG TABLET BY MOUTH ×2 (08:20→19:48)
[2023-08-12] MEDS: FUROSEMIDE 20 MG TABLET BY MOUTH (08:20)
[2023-08-12] MEDS: THERAPEUTIC MULTIVITAMINS/MINERALS TAB (*BKC) 1 TABLET PO (08:20)
[2023-08-12] MEDS: ZINC SULFATE 220 MG CAPSULE PO (08:20)
[2023-08-12] MEDS: POTASSIUM CHLORIDE 10 MEQ ER TABLET PO (08:20)
[2023-08-12] MEDS: ASCORBIC ACID 500 MG TABLET PO (08:20)
--- NOTE | 2023-08-12 09:15 | PM.IMPN ---
Progress Note: A&P Assessment and Plan (1) Septicemia: Code(s): A41.9 - Sepsis, unspecified organism Status: Acute Assessment and Plan: Patient with sepsis on admission with tachycardia, leukocytosis, tachypnea, and now with positive BCx. CTA chest showing occluded RML and RLL occluded. Some of this is chronic. Suspected source of sepsis is PNA. BCx 08/04 growing GPC in clusters aerobic only, other set NGTD. ID pending SpCx 08/05 NGTD BCx 08/06 NGTD Started on Rocephin and Azithromycin and Vancomycin added 08/06, de-escalated to unasyn 08/08 ST eval pending 08/09: check PCT, CRP, leuk bumped a bit, but clinically looks much better 08/10: leuk continues to trend up, diff not impressive, no fevers, unsure of clinical significance--viral infection? Check COVID/RSV/flu, repeat PCT/CRP pending, cont unasyn for now, resend urine and culture, CTA chest, abd, pelvis unremarkable for new developments, showed cont lung collapse, some pleural effusions, possible pyelo/bladder infection, will d/c unasyn in favor of meropenem to cover possible pneumococcal infection in urine d/t pneumococcal ag found in urine 08/11: leuk slightly improved on meropenem, cont this, monitor closely, clinically stable/improving 08/12: leuk much improved, cont meropenem (2) Normocytic anemia: Code(s): D64.9 - Anemia, unspecified Status: Acute Assessment and Plan: No recent HH to compare but normal last year. Hgb 10.3 on admission and has dropped today to 8.0 B12/Folate normal. Iron studies showing low TIBC and low iron. Ferritin 32 to suggest a component of iron deficiency. Continue Protonix. Continue iron as he tolerates. Check stool occult. 08/09: hgb dropped below 7, transfused 1 unit, improved to 8.7, eliquis and plavix on hold, unsure of etiology, stool occult still pending 08/11: stable, monitor 08/12: hgb dropped again, uncertain etiology, recheck this afternoon, consider GI vs hem/onc consult (3) Hypoxemia: Code(s): R09.02 - Hypoxemia Status: Acute Assessment and Plan: Patient found poorly responsive and hypoxic. Hypoxia better with high flow O2 to 15L. CXR showing complete collapse of right lung middle and lower lobe. Discussed with pulmonary, wean oxygen as tolerated, check stool occult 08/10: CXR and CTA show continued collapse 08/12: Stable on home O2 (4) Pulmonary embolism: Qualifiers: Acute cor pulmonale presence: without acute cor pulmonale Chronicity: acute Pulmonary embolism type: unspecified Qualified Code(s): I26.99 - Other pulmonary embolism without acute cor pulmonale Code(s): I26.99 - Other pulmonary embolism without acute cor pulmonale Status: Acute Assessment and Plan: The patient presented with complaints of right-sided chest pain. Chest CTA was suspicious for LLL PE but limited due to respiratory motion. He was started on Heparin drip. Elevated Trop could be related to the PE but not a large clot burden. LE venous dopplers negative for DVT. Echo pending. Transitioned to Eliquis 08/09: hgb dropped, transfused 1 unit pRBCs, unsure of etiology, hold eliquis temporarily 08/10: cont to hold eliquis 08/12: no plans to restart eliquis, do not suspect clinically significant PE and hgb continues to drop (5) Community acquired pneumonia: Qualifiers: Laterality: left Lung location: lower lobe of lung Qualified Code(s): J18.9 - Pneumonia, unspecified organism Code(s): J18.9 - Pneumonia, unspecified organism Status: Acute Assessment and Plan: CTA chest also shows occluded RML and RLL with associated atelectasis as well as patchy LLL infiltrate/atelectasis and mild patchy lingular infiltrate. The RLL findings were seen by CT in 2020 though worse now. WBC was 24K. WBC trending down. BCx and Sputum culture as above Started on azithromycin and ceftriaxone for presumed pneumonia. Vancomycin added when positive BCx Legionella and pneu
[2023-08-12] MEDS: POTASSIUM CHLORIDE INJ 40 MEQ in SODIUM CHLORIDE 0.9% IV 500 ML 130 MEQ IVPB (10:48)
[2023-08-12 15:34] LABS: Hematocrit 26.3 % (42.0-52.0); Hemoglobin 7.9 g/dL (14.0-18.0)
[2023-08-12] MEDS: ATORVASTATIN 40 MG TABLET PO (19:48)
[2023-08-12] MEDS: OLANZapine 5 MG TABLET BY MOUTH (19:48)
[2023-08-12] MEDS: ALPRAZolam (*CRX) 0.25 MG TABLET PO (20:46)
[2023-08-13] VITALS (8 sets, daily range): BP systolic 116–144; BP diastolic 41–61; PULSE 70–79; RESP 16–22; TEMP 36.2–37.1; O2SAT 95–98
[2023-08-13 05:58] LABS: Basophils Absolute Auto 0.1 K/mm3 (0.0-0.1); Basophils Percent Auto 0.8 % (0.2-1.2); Eosinophils Absolute Auto 0.6 K/mm3 (0-0.3); Eosinophils Percent Auto 3.3 % (0-4.4); Hematocrit 29.8 % (42.0-52.0); Hemoglobin 8.5 g/dL (14.0-18.0); Immature Granulocyte Absolute 0.18 K/mm3 (0.00-0.031); Immature Granulocyte Percent A 1.1 % (0-0.5); Lymphocytes Absolute Auto 1.04 K/mm3 (0.9-3.2); Lymphocytes Percent Auto 6.2 % (18.3-44.2); Mean Corpuscular HGB Conc 28.5 g/dl (32-36); Mean Corpuscular Hemoglobin 26.5 pg (26-34); Mean Corpuscular Volume 92.8 fl (80-100); Mean Platelet Volume 10.3 fl (7.4-10.4); Monocytes Absolute Auto 1.6 K/mm3 (0.1-0.6); Monocytes Percent Auto 9.5 % (2.6-8.5); Neutrophils Absolute Auto 13.3 K/mm3 (1.3-6.7); Neutrophils Percent Auto 79.1 % (45.5-73.1); Platelet Count Result 679 k/mm3 (150-375); Red Blood Count 3.21 M/mm3 (4.6-6.20); Red Cell Distribution Width 16.9 % (11.5-14.5); White Blood Count 16.8 K/mm3 (4.5-10.0)
[2023-08-13 06:11] LABS: Alanine Aminotransferase 72 U/L (6-50); Albumin Level 3.2 g/dL (3.5-5.1); Alkaline Phosphatase 185 U/L (38-126); Anion Gap 8 mmol/L (8-16); Aspartate Amino Transferase 40 U/L (17-59); Bilirubin,Total 0.6 mg/dL (0.2-1.3); Blood Urea Nitrogen 20 mg/dL (9-20); Calcium 9.4 mg/dL (8.4-10.2); Carbon Dioxide 23 mmol/L (22-30); Chloride 105 mmol/L (98-107); Estimated CRCL calculation 45 ml/min; Estimated Glomerular Filt Rate > 60; Glucose 88 mg/dL (65-110); Potassium 3.5 mmol/L (3.4-5.0); Sodium 136 mmol/L (137-145)
[2023-08-13 07:32] LABS: Lactate Dehydrogenase 194 U/L (120-246)
[2023-08-13 07:35] LABS: Anisocytosis 1+ (NORMAL); Hypochromasia 3+ (NORMAL); Platelet Estimate Increased (Adequate); Poikilocytosis 2+ (NORMAL); Schistocytes Rare (NORMAL)
[2023-08-13 07:36] LABS: Ovalocytes 1+ (NORMAL)
--- NOTE | 2023-08-13 08:48 | PM.IMPN ---
Progress Note: A&P Assessment and Plan (1) Septicemia: Code(s): A41.9 - Sepsis, unspecified organism Status: Acute Assessment and Plan: Patient with sepsis on admission with tachycardia, leukocytosis, tachypnea, and now with positive BCx. CTA chest showing occluded RML and RLL occluded. Some of this is chronic. Suspected source of sepsis is PNA. BCx 08/04 growing GPC in clusters aerobic only, other set NGTD. ID pending SpCx 08/05 NGTD BCx 08/06 NGTD Started on Rocephin and Azithromycin and Vancomycin added 08/06, de-escalated to unasyn 08/08 ST eval pending 08/09: check PCT, CRP, leuk bumped a bit, but clinically looks much better 08/10: leuk continues to trend up, diff not impressive, no fevers, unsure of clinical significance--viral infection? Check COVID/RSV/flu, repeat PCT/CRP pending, cont unasyn for now, resend urine and culture, CTA chest, abd, pelvis unremarkable for new developments, showed cont lung collapse, some pleural effusions, possible pyelo/bladder infection, will d/c unasyn in favor of meropenem to cover possible pneumococcal infection in urine d/t pneumococcal ag found in urine 08/11: leuk slightly improved on meropenem, cont this, monitor closely, clinically stable/improving 08/12: leuk much improved, cont meropenem 08/13: leuk unchanged, monitor, clinically appears worse? unsure etiology, prognosis guarded (2) Normocytic anemia: Code(s): D64.9 - Anemia, unspecified Status: Acute Assessment and Plan: No recent HH to compare but normal last year. Hgb 10.3 on admission and has dropped today to 8.0 B12/Folate normal. Iron studies showing low TIBC and low iron. Ferritin 32 to suggest a component of iron deficiency. Continue Protonix. Continue iron as he tolerates. Check stool occult. 08/09: hgb dropped below 7, transfused 1 unit, improved to 8.7, eliquis and plavix on hold, unsure of etiology, stool occult still pending 08/11: stable, monitor 08/12: hgb dropped again, uncertain etiology, recheck this afternoon, consider GI vs hem/onc consult 08/13: improved to 8.5, monitor (3) Hypoxemia: Code(s): R09.02 - Hypoxemia Status: Acute Assessment and Plan: Patient found poorly responsive and hypoxic. Hypoxia better with high flow O2 to 15L. CXR showing complete collapse of right lung middle and lower lobe. Discussed with pulmonary, wean oxygen as tolerated, check stool occult 08/10: CXR and CTA show continued collapse 08/12: Stable on home O2 (4) Pulmonary embolism: Qualifiers: Acute cor pulmonale presence: without acute cor pulmonale Chronicity: acute Pulmonary embolism type: unspecified Qualified Code(s): I26.99 - Other pulmonary embolism without acute cor pulmonale Code(s): I26.99 - Other pulmonary embolism without acute cor pulmonale Status: Acute Assessment and Plan: The patient presented with complaints of right-sided chest pain. Chest CTA was suspicious for LLL PE but limited due to respiratory motion. He was started on Heparin drip. Elevated Trop could be related to the PE but not a large clot burden. LE venous dopplers negative for DVT. Echo pending. Transitioned to Eliquis 08/09: hgb dropped, transfused 1 unit pRBCs, unsure of etiology, hold eliquis temporarily 08/10: cont to hold eliquis 08/12: no plans to restart eliquis, do not suspect clinically significant PE and hgb continues to drop (5) Community acquired pneumonia: Qualifiers: Laterality: left Lung location: lower lobe of lung Qualified Code(s): J18.9 - Pneumonia, unspecified organism Code(s): J18.9 - Pneumonia, unspecified organism Status: Acute Assessment and Plan: CTA chest also shows occluded RML and RLL with associated atelectasis as well as patchy LLL infiltrate/atelectasis and mild patchy lingular infiltrate. The RLL findings were seen by CT in 2020 though worse now. WBC was 24K. WBC trending down. BCx and Sputum culture as above
[2023-08-13] MEDS: guaiFENesin 12 HR 600 MG TABCR PO ×2 (09:35→20:56)
[2023-08-13] MEDS: FERROUS SULFATE 325 MG TABLET DR PO ×2 (09:37→17:28)
[2023-08-13] MEDS: THERAPEUTIC MULTIVITAMINS/MINERALS TAB (*BKC) 1 TABLET PO (09:37)
[2023-08-13] MEDS: CHOLECALCIFEROL 1,000 UNITS TABLET 2000 UNITS PO (09:37)
[2023-08-13] MEDS: METOPROLOL TARTRATE 12.5 MG TABLET BY MOUTH ×2 (09:37→20:56)
[2023-08-13] MEDS: FUROSEMIDE 20 MG TABLET BY MOUTH (09:37)
[2023-08-13] MEDS: PANTOPRAZOLE 40 MG TABLET PO ×2 (09:37→20:56)
[2023-08-13] MEDS: MEROPENEM 1 GM/NS 100 ML 1 GM/100 ML BAG IVPB ×2 (09:38→21:11)
[2023-08-13] MEDS: ASCORBIC ACID 500 MG TABLET PO (09:38)
[2023-08-13] MEDS: ZINC SULFATE 220 MG CAPSULE PO (09:38)
[2023-08-13] MEDS: POTASSIUM CHLORIDE 10 MEQ ER TABLET PO (09:38)
--- NOTE | 2023-08-13 11:04 | PCPTNOTE ---
Patient refused treatment this session. Patient initially agreed to work with PT, then refused to participate in lower extremity exercises, bed mobility, and sitting edge of bed. Patient reported lets forget about it. Patient having increase confusion. Educated patient on the importance of therapy, patient continued to refuse.
--- NOTE | 2023-08-13 12:16 | PM.PNPUL ---
Progress Note: A&P Assessment and Plan (1) Pneumonia: Code(s): J18.9 - Pneumonia, unspecified organism Status: Acute Assessment and Plan: He has had pneumonia in the past, had a bronchoscopy 12/2018 for thick secretions in the RLL, no obstructing lesions seen. There was a concern for aspiration at that time. He has continued right lower lobe collapse on his CT scan from 07/01/2021 and chest x-rays from 09/28/2020 and 12/22/2022. 08/06/23: Current CT angiogram of the chest on 08/04/2023 shows minimal change in his right lower lobe collapse. He has been bronch previously with no obstructing lesion. There has been continued concern for aspiration. He also has some patchy left lower lobe infiltrate which may represent a pneumonia. Plan: Patient is afebrile. His white blood cell count is 20.2, he continues on ceftriaxone and azithromycin since 08/04/2023, day 3. There has been concern for aspiration given the patient's neck deformity and agree with swallow evaluation. I will order chest x-ray on 08/07/2023. 08/07: Chest x-ray demonstrated right lower lobe and middle lobe collapse. There has been no change in his right lower lobe middle lobe collapse on chest x-ray from 08/04/2023, 12/22/2022 or 09/28/2020. The patient has very severe torticollis and kyphosis. He is intermittently getting sedated and may be aspirating. He is not a candidate for noninvasive ventilation as he has refused this in the past. He has a poor cough. Plan: Continue ceftriaxone and azithromycin, day 4. He has refused a full swallow evaluation by speech therapy. Once he is awake, treatment goals and level of care should be discussed with the patient and his family. 08/08 from the bedside nurse patient had some clinical aspiration with his pills last night. Plan: Patient was started on Ceftriaxone and azithromycin on 08/04, this was continued through 08/07. He was changed to Unasyn on 08/07 for concerns of aspiration. Day 5 total antibiotics. Patient had Gram-positive cocci in his blood from 08/04 which were identified as Staph auricularis. He was placed on vancomycin on 08/06. I will discontinue vancomycin as his repeat cultures on 08/06/2023 are no growth and Staph auricularis likely represents a contaminant. 08/09 patient has been on antibiotics since 08/04 (day 6). He is afebrile, remains with white blood cell count 19.3. His urine pneumococcal antigen has come back positive. Clinically is improved. He now has elevated LFTs. Plan: Discussed with hospitalist and procalcitonin, CRP and abdominal ultrasound have been ordered. In addition CT angiogram of the chest ordered to assess for pleural effusions or lung abscess. CT of the abdomen and pelvis have been ordered. Urine culture has been ordered. 08/10: CT angiogram of the chest yesterday demonstrates continued right lower lobe and left lower lobe consolidative infiltrates. The right pleural effusion has increased since 08/04/2023. Overall the patient has improved clinically with improved oxygenation but he remains with a leukocytosis and these infiltrates. Procalcitonin 0.5, CRP 14.1 08/13: He appears to be slowly worsening, or maybe part of this is sedation. He is not better, waiting on thoracentesis to evlaute the moderate R pleural effusion. WBC is stable 16.8k, has a positive pneumococcal antigen in the urine. He is off anticoagulants for 5 days to get the thora. Dr. Samayoa entered lab orders for the fluid. (2) Pulmonary embolism: Qualifiers: Acute cor pulmonale presence: without acute cor pulmonale Chronicity: acute Pulmonary embolism type: unspecified Qualified Code(s): I26.99 - Other pulmonary embolism without acute cor pulmonale Code(s): I26.99 - Other pulmonary embolism without acute cor pulmonale Status: Acute Assessment and Plan: Patient presented on 08/04/2023 with right anterior chest pain worse with movement and deep inspiration. Baseline he is on 3
--- NOTE | 2023-08-13 13:17 | PCPTNOTE ---
Attempted to see patient for PT, however patient refused and stated not right now.
--- NOTE | 2023-08-13 13:50 | PCOTNOTE ---
Patient refused to participate in any activities this session. Therapist informed RN. She stated he wont do anything without his here .
[2023-08-13] MEDS: LINEZOLID 600 MG/300 ML 600 MG/300 ML SOLN 300 MG IVPB ×2 (14:13→21:11)
--- NOTE | 2023-08-13 15:01 | PC.NURSE ---
All care, medications and assessments performed by Que Isabel, Student Nurse/[facility] has been completed under direct supervision of [place] Assistant Director [facility] or Nursing Staff. Charting has been reviewed and agree with same. Any questions or concerns presented by patient and/or family has been relayed to appropriate staff.
[2023-08-13 16:36] LABS: pH Pleural Fluid 7.085 (7.210-7.500)
[2023-08-13 18:42] LABS: Appearance Pleural Fluid Hazy (Clear); Color Pleural Fluid Yellow (Colorless); Pleural fluid source Pleural fluid
[2023-08-13 18:43] LABS: Lymphocytes Pleural Fluid 42 %; Monocytes Pleural Fluid 39 %; Neutrophils Pleural Fluid 19 % (0-25)
[2023-08-13] MEDS: ATORVASTATIN 40 MG TABLET PO (20:56)
[2023-08-13] MEDS: OLANZapine 5 MG TABLET BY MOUTH (20:56)
[2023-08-14] VITALS (8 sets, daily range): BP systolic 120–146; BP diastolic 51–68; PULSE 70–80; RESP 17–18; TEMP 36.4–36.8; O2SAT 96–98
[2023-08-14 05:48] LABS: Basophils Absolute Auto 0.1 K/mm3 (0.0-0.1); Basophils Percent Auto 0.4 % (0.2-1.2); Eosinophils Absolute Auto 0.5 K/mm3 (0-0.3); Eosinophils Percent Auto 2.8 % (0-4.4); Hematocrit 25.1 % (42.0-52.0); Hemoglobin 7.7 g/dL (14.0-18.0); Immature Granulocyte Absolute 0.19 K/mm3 (0.00-0.031); Immature Granulocyte Percent A 1.1 % (0-0.5); Lymphocytes Absolute Auto 1.02 K/mm3 (0.9-3.2); Mean Corpuscular HGB Conc 30.7 g/dl (32-36); Mean Corpuscular Hemoglobin 26.7 pg (26-34); Mean Corpuscular Volume 87.2 fl (80-100); Monocytes Absolute Auto 1.3 K/mm3 (0.1-0.6); Monocytes Percent Auto 7.4 % (2.6-8.5); Neutrophils Percent Auto 82.3 % (45.5-73.1); Platelet Count Result 744 k/mm3 (150-375); Red Blood Count 2.88 M/mm3 (4.6-6.20); Red Cell Distribution Width 16.8 % (11.5-14.5)
[2023-08-14 06:00] LABS: Alanine Aminotransferase 58 U/L (6-50); Albumin Level 3.1 g/dL (3.5-5.1); Alkaline Phosphatase 165 U/L (38-126); Anion Gap 4 mmol/L (8-16); Aspartate Amino Transferase 32 U/L (17-59); Bilirubin,Total 0.5 mg/dL (0.2-1.3); Blood Urea Nitrogen 18 mg/dL (9-20); Calcium 9.3 mg/dL (8.4-10.2); Carbon Dioxide 28 mmol/L (22-30); Chloride 100 mmol/L (98-107); Estimated CRCL calculation 40 ml/min; Estimated Glomerular Filt Rate 58; Glucose 94 mg/dL (65-110); Potassium 3.3 mmol/L (3.4-5.0); Sodium 132 mmol/L (137-145)
[2023-08-14] MEDS: MEROPENEM 1 GM/NS 100 ML 1 GM/100 ML BAG IVPB ×2 (08:51→20:18)
[2023-08-14] MEDS: LINEZOLID 600 MG/300 ML 600 MG/300 ML SOLN 300 MG IVPB ×2 (08:51→21:00)
--- NOTE | 2023-08-14 09:32 | PCOTNOTE ---
Patient alone in the room at this time. Per RN, Patient accepts treatment only when his is present. Patient refused to participate in any activity and this time, verbalized, just leave me alone, my head is all messed up and not right . RN notified and aware
[2023-08-14] MEDS: METOPROLOL TARTRATE 12.5 MG TABLET BY MOUTH ×2 (10:03→20:23)
[2023-08-14] MEDS: FUROSEMIDE 20 MG TABLET BY MOUTH (10:03)
[2023-08-14] MEDS: POTASSIUM CHLORIDE 10 MEQ ER TABLET PO (10:03)
[2023-08-14] MEDS: guaiFENesin 12 HR 600 MG TABCR PO ×2 (10:03→20:23)
[2023-08-14] MEDS: CHOLECALCIFEROL 1,000 UNITS TABLET 2000 UNITS PO (10:04)
[2023-08-14] MEDS: PANTOPRAZOLE 40 MG TABLET PO ×2 (10:04→20:23)
[2023-08-14] MEDS: FERROUS SULFATE 325 MG TABLET DR PO ×2 (10:04→17:13)
[2023-08-14] MEDS: THERAPEUTIC MULTIVITAMINS/MINERALS TAB (*BKC) 1 TABLET PO (10:04)
[2023-08-14] MEDS: ASCORBIC ACID 500 MG TABLET PO (10:04)
[2023-08-14] MEDS: ZINC SULFATE 220 MG CAPSULE PO (10:04)
--- NOTE | 2023-08-14 13:07 | PM.PNPUL ---
Progress Note: A&P Assessment and Plan (1) Pneumonia: Code(s): J18.9 - Pneumonia, unspecified organism Status: Acute Assessment and Plan: He has had pneumonia in the past, had a bronchoscopy 12/2018 for thick secretions in the RLL, no obstructing lesions seen. There was a concern for aspiration at that time. He has continued right lower lobe collapse on his CT scan from 07/01/2021 and chest x-rays from 09/28/2020 and 12/22/2022. 08/06/23: Current CT angiogram of the chest on 08/04/2023 shows minimal change in his right lower lobe collapse. He has been bronch previously with no obstructing lesion. There has been continued concern for aspiration. He also has some patchy left lower lobe infiltrate which may represent a pneumonia. Plan: Patient is afebrile. His white blood cell count is 20.2, he continues on ceftriaxone and azithromycin since 08/04/2023, day 3. There has been concern for aspiration given the patient's neck deformity and agree with swallow evaluation. I will order chest x-ray on 08/07/2023. 08/07: Chest x-ray demonstrated right lower lobe and middle lobe collapse. There has been no change in his right lower lobe middle lobe collapse on chest x-ray from 08/04/2023, 12/22/2022 or 09/28/2020. The patient has very severe torticollis and kyphosis. He is intermittently getting sedated and may be aspirating. He is not a candidate for noninvasive ventilation as he has refused this in the past. He has a poor cough. Plan: Continue ceftriaxone and azithromycin, day 4. He has refused a full swallow evaluation by speech therapy. Once he is awake, treatment goals and level of care should be discussed with the patient and his family. 08/08 from the bedside nurse patient had some clinical aspiration with his pills last night. Plan: Patient was started on Ceftriaxone and azithromycin on 08/04, this was continued through 08/07. He was changed to Unasyn on 08/07 for concerns of aspiration. Day 5 total antibiotics. Patient had Gram-positive cocci in his blood from 08/04 which were identified as Staph auricularis. He was placed on vancomycin on 08/06. I will discontinue vancomycin as his repeat cultures on 08/06/2023 are no growth and Staph auricularis likely represents a contaminant. 08/09 patient has been on antibiotics since 08/04 (day 6). He is afebrile, remains with white blood cell count 19.3. His urine pneumococcal antigen has come back positive. Clinically is improved. He now has elevated LFTs. Plan: Discussed with hospitalist and procalcitonin, CRP and abdominal ultrasound have been ordered. In addition CT angiogram of the chest ordered to assess for pleural effusions or lung abscess. CT of the abdomen and pelvis have been ordered. Urine culture has been ordered. 08/10: CT angiogram of the chest yesterday demonstrates continued right lower lobe and left lower lobe consolidative infiltrates. The right pleural effusion has increased since 08/04/2023. Overall the patient has improved clinically with improved oxygenation but he remains with a leukocytosis and these infiltrates. Procalcitonin 0.5, CRP 14.1 08/13: He appears to be slowly worsening, or maybe part of this is sedation. He is not better, waiting on thoracentesis to evalaute the moderate R pleural effusion. WBC is stable 16.8k, has a positive pneumococcal antigen in the urine. He is off anticoagulants for 5 days to get the thoracentesis. Dr. Samayoa entered lab orders for the fluid. Other labs pending. 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 Other labs pending. Antibiotics are not going to make much difference as they cannot penetrate into pleural space well. (2) Pulmonary embolism: Qualifiers: Acute cor pulmonale presence: without acute cor pulmonale Chronicity: acute Pulmonary embolism type: unspecifie
--- NOTE | 2023-08-14 13:30 | PM.IMPN ---
Progress Note: A&P Assessment and Plan (1) Septicemia: Code(s): A41.9 - Sepsis, unspecified organism Status: Acute Assessment and Plan: Patient with sepsis on admission with tachycardia, leukocytosis, tachypnea, and now with positive BCx. CTA chest showing occluded RML and RLL occluded. Some of this is chronic. Suspected source of sepsis is PNA. BCx 08/04 growing GPC in clusters aerobic only, other set NGTD. ID pending SpCx 08/05 NGTD BCx 08/06 NGTD Started on Rocephin and Azithromycin and Vancomycin added 08/06, de-escalated to unasyn 08/08 ST eval pending 08/09: check PCT, CRP, leuk bumped a bit, but clinically looks much better 08/10: leuk continues to trend up, diff not impressive, no fevers, unsure of clinical significance--viral infection? Check COVID/RSV/flu, repeat PCT/CRP pending, cont unasyn for now, resend urine and culture, CTA chest, abd, pelvis unremarkable for new developments, showed cont lung collapse, some pleural effusions, possible pyelo/bladder infection, will d/c unasyn in favor of meropenem to cover possible pneumococcal infection in urine d/t pneumococcal ag found in urine 08/11: leuk slightly improved on meropenem, cont this, monitor closely, clinically stable/improving 08/12: leuk much improved, cont meropenem 08/13: leuk unchanged, monitor, clinically appears worse? unsure etiology, prognosis guarded 08/14: leuk cont to fluctuate, clinically stable, likely needs home with hospice and DNR, discussed with family, they are thinking about it (2) Normocytic anemia: Code(s): D64.9 - Anemia, unspecified Status: Acute Assessment and Plan: No recent HH to compare but normal last year. Hgb 10.3 on admission and has dropped today to 8.0 B12/Folate normal. Iron studies showing low TIBC and low iron. Ferritin 32 to suggest a component of iron deficiency. Continue Protonix. Continue iron as he tolerates. Check stool occult. 08/09: hgb dropped below 7, transfused 1 unit, improved to 8.7, eliquis and plavix on hold, unsure of etiology, stool occult still pending 08/11: stable, monitor 08/12: hgb dropped again, uncertain etiology, recheck this afternoon, consider GI vs hem/onc consult 08/13: improved to 8.5, monitor 08/14: back down to 7.7, unsure of etiology, monitor (3) Hypoxemia: Code(s): R09.02 - Hypoxemia Status: Acute Assessment and Plan: Patient found poorly responsive and hypoxic. Hypoxia better with high flow O2 to 15L. CXR showing complete collapse of right lung middle and lower lobe. Discussed with pulmonary, wean oxygen as tolerated, check stool occult 08/10: CXR and CTA show continued collapse 08/12: Stable on home O2 (4) Pulmonary embolism: Qualifiers: Acute cor pulmonale presence: without acute cor pulmonale Chronicity: acute Pulmonary embolism type: unspecified Qualified Code(s): I26.99 - Other pulmonary embolism without acute cor pulmonale Code(s): I26.99 - Other pulmonary embolism without acute cor pulmonale Status: Acute Assessment and Plan: The patient presented with complaints of right-sided chest pain. Chest CTA was suspicious for LLL PE but limited due to respiratory motion. He was started on Heparin drip. Elevated Trop could be related to the PE but not a large clot burden. LE venous dopplers negative for DVT. Echo pending. Transitioned to Eliquis 08/09: hgb dropped, transfused 1 unit pRBCs, unsure of etiology, hold eliquis temporarily 08/10: cont to hold eliquis 08/12: no plans to restart eliquis, do not suspect clinically significant PE and hgb continues to drop (5) Community acquired pneumonia: Qualifiers: Laterality: left Lung location: lower lobe of lung Qualified Code(s): J18.9 - Pneumonia, unspecified organism Code(s): J18.9 - Pneumonia, unspecified organism Status: Acute Assessment and Plan: CTA chest also shows occluded RML and RLL with associated atelectasis as well as patchy LLL
--- NOTE | 2023-08-14 13:32 | PCNFU ---
Nutrition Follow-Up Complete: Severe Malnutrition as related to inadequate protein-energy intake with increased protein energy needs in setting of chronic disease or condition (COPD) as evidenced by minimal oral intake < 75% of EER for > 1 month; severe subcutaneous fat loss (orbital fad pads) and muscle wasting (clavical region). Goal: Meet estimated nutritional needs. Patient has limited progress on goal. We will continue current goal. Pt current nutrition is Heart Healthy/Soft and Bite Sized, Level 6 with Mildly Thick liquids, Level 2. Last recorded weight is 63 kg, down from 61.5 kg. Bowel Motility: No BM reported. Labs Reviewed:K 3.3.Hgb 7.7, Hct 25.1 Meds Noted:Lasix, Zinc, Protonix, Vit D, Vit C , Mucinex Skin: WNL Additional Notes: Patient had Thoracentesis 08/13 removed 20 ml of fluid. PO intake remains poor 0-5% of meals. Patient is consuming diet supplements of Ensure compact TID (220 kcals and 9 gms protein). Po intake encouraged. Will monitor, weight, labs, skin, oral intake every 3 days.
--- NOTE | 2023-08-14 15:10 | PCOTNOTE ---
Attempted Patient again this afternoon. Patient seemed frustrated/agitated and his was present at this time. Patient's verbalized he did attempt some PT, not much and they did receive bad news this date.
[2023-08-14] MEDS: ALPRAZolam (*CRX) 0.25 MG TABLET PO (20:23)
[2023-08-14] MEDS: OLANZapine 5 MG TABLET BY MOUTH (20:23)
[2023-08-14] MEDS: ATORVASTATIN 40 MG TABLET PO (20:23)
[2023-08-14] MEDS: ACETAMINOPHEN 325 MG TABLET 650 MG PO (20:27)
[2023-08-15] VITALS (7 sets, daily range): BP systolic 95–131; BP diastolic 45–88; PULSE 66–77; RESP 16–20; TEMP 36.4–36.8; O2SAT 94–99
[2023-08-15 06:11] LABS: Basophils Absolute Auto 0.1 K/mm3 (0.0-0.1); Basophils Percent Auto 1.1 % (0.2-1.2); Eosinophils Absolute Auto 0.6 K/mm3 (0-0.3); Eosinophils Percent Auto 4.9 % (0-4.4); Hematocrit 29.7 % (42.0-52.0); Hemoglobin 8.7 g/dL (14.0-18.0); Immature Granulocyte Absolute 0.21 K/mm3 (0.00-0.031); Immature Granulocyte Percent A 1.6 % (0-0.5); Lymphocytes Absolute Auto 1.27 K/mm3 (0.9-3.2); Lymphocytes Percent Auto 9.9 % (18.3-44.2); Mean Corpuscular HGB Conc 29.3 g/dl (32-36); Mean Corpuscular Volume 92.2 fl (80-100); Mean Platelet Volume 10.3 fl (7.4-10.4); Monocytes Absolute Auto 1.6 K/mm3 (0.1-0.6); Monocytes Percent Auto 12.7 % (2.6-8.5); Neutrophils Absolute Auto 8.9 K/mm3 (1.3-6.7); Neutrophils Percent Auto 69.8 % (45.5-73.1); Platelet Count Result 642 k/mm3 (150-375); Red Blood Count 3.22 M/mm3 (4.6-6.20); Red Cell Distribution Width 16.9 % (11.5-14.5); White Blood Count 12.8 K/mm3 (4.5-10.0)
[2023-08-15 06:31] LABS: Alanine Aminotransferase 44 U/L (6-50); Albumin Level 2.8 g/dL (3.5-5.1); Alkaline Phosphatase 150 U/L (38-126); Anion Gap 6 mmol/L (8-16); Aspartate Amino Transferase 26 U/L (17-59); Bilirubin,Total 0.5 mg/dL (0.2-1.3); Blood Urea Nitrogen 14 mg/dL (9-20); Calcium 9.4 mg/dL (8.4-10.2); Carbon Dioxide 23 mmol/L (22-30); Chloride 101 mmol/L (98-107); Estimated CRCL calculation 43 ml/min; Estimated Glomerular Filt Rate > 60; Glucose 66 mg/dL (65-110); Potassium 3.6 mmol/L (3.4-5.0); Sodium 130 mmol/L (137-145)
[2023-08-15] MEDS: MEROPENEM 1 GM/NS 100 ML 1 GM/100 ML BAG IVPB ×2 (09:40→20:26)
[2023-08-15] MEDS: LINEZOLID 600 MG/300 ML 600 MG/300 ML SOLN 300 MG IVPB ×2 (10:14→21:12)
--- NOTE | 2023-08-15 11:12 | PCPTNOTE ---
Attempted to see patient for PT, per RN patient is sound asleep and asked PT to let patient sleep. Per RN patient has been up for 24 hours and is finally sleeping. Patient unable to be seen for PT at this time.
[2023-08-15] MEDS: ACETAMINOPHEN 325 MG TABLET 650 MG PO ×2 (13:07→20:22)
[2023-08-15] MEDS: guaiFENesin 12 HR 600 MG TABCR PO ×2 (13:09→20:22)
[2023-08-15] MEDS: ZINC SULFATE 220 MG CAPSULE PO (13:09)
[2023-08-15] MEDS: FERROUS SULFATE 325 MG TABLET DR PO ×2 (13:09→18:33)
[2023-08-15] MEDS: METOPROLOL TARTRATE 12.5 MG TABLET BY MOUTH ×2 (13:09→20:22)
[2023-08-15] MEDS: POTASSIUM CHLORIDE 10 MEQ ER TABLET PO (13:09)
[2023-08-15] MEDS: FUROSEMIDE 20 MG TABLET BY MOUTH (13:09)
[2023-08-15] MEDS: PANTOPRAZOLE 40 MG TABLET PO ×2 (13:09→20:22)
--- NOTE | 2023-08-15 16:28 | PM.PNPUL ---
Progress Note: A&P Assessment and Plan (1) Pneumonia: Code(s): J18.9 - Pneumonia, unspecified organism Status: Acute Assessment and Plan: He has had pneumonia in the past, had a bronchoscopy 12/2018 for thick secretions in the RLL, no obstructing lesions seen. There was a concern for aspiration at that time. He has continued right lower lobe collapse on his CT scan from 07/01/2021 and chest x-rays from 09/28/2020, 12/22/2022, and current images. 08/06/23: Current CTA chest on 08/04/2023 shows minimal change in his right lower lobe collapse. He has been bronch'd previously with no obstructing lesion. There has been continued concern for aspiration. He also has some patchy left lower lobe infiltrate which may represent a pneumonia. WBC 20.2, he continues on ceftriaxone and azithromycin since 08/04/2023, day 3. There has been concern for aspiration given the patient's neck deformity and agree with swallow evaluation. 08/07: Chest x-ray - RLL and RML collapse. Same as CXR from 08/04/2023, 12/22/2022 or 09/28/2020. The patient has very severe torticollis and kyphosis; intermittently getting sedated and may be aspirating. He is not a candidate for noninvasive ventilation as he has refused this in the past. He has a poor cough. Continue ceftriaxone and azithromycin, day 4. He has refused a full swallow evaluation by speech therapy. Once he is awake, treatment goals and level of care should be discussed with the patient and his family. 08/08 from the bedside nurse patient had some clinical aspiration with his pills last night. Plan: Patient was started on Ceftriaxone and azithromycin on 08/04, this was continued through 08/07. He was changed to Unasyn on 08/07 for concerns of aspiration. Day 5 total antibiotics. Patient had Gram-positive cocci in his blood from 08/04 which were identified as Staph auricularis. He was placed on vancomycin on 08/06. I will discontinue vancomycin as his repeat cultures on 08/06/2023 are no growth and Staph auricularis likely represents a contaminant. 08/09 patient has been on antibiotics since 08/04 (day 6). He is afebrile, remains with white blood cell count 19.3. His urine pneumococcal antigen has come back positive. Clinically is improved. He now has elevated LFTs. Plan: Discussed with hospitalist and procalcitonin, CRP and abdominal ultrasound have been ordered. In addition CT angiogram of the chest ordered to assess for pleural effusions or lung abscess. CT of the abdomen and pelvis have been ordered. Urine culture has been ordered. 08/10: CT angiogram of the chest yesterday demonstrates continued right lower lobe and left lower lobe consolidative infiltrates. The right pleural effusion has increased since 08/04/2023. Overall the patient has improved clinically with improved oxygenation but he remains with a leukocytosis and these infiltrates. Procalcitonin 0.5, CRP 14.1 08/13: He appears to be slowly worsening, or maybe part of this is sedation. He is not better, waiting on thoracentesis to evalaute the moderate R pleural effusion. WBC is stable 16.8k, has a positive pneumococcal antigen in the urine. He is off anticoagulants for 5 days to get the thoracentesis. Dr. Samayoa entered lab orders for the fluid. Other labs pending. 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 Other labs pending. Antibiotics are not going to make much difference as they cannot penetrate into pleural space well. 08/15 WBC lower 12.8, no fever the entire admission. On Linezolid and Meropenem. (2) Pulmonary embolism: Qualifiers: Acute cor pulmonale presence: without acute cor pulmonale Chronicity: acute Pulmonary embolism type: unspecified Qualified Code(s): I26.99 - Other pulmonary embolism without acute cor pulmonale Code(s): I26.99 - Other pulmonary e
--- NOTE | 2023-08-15 17:08 | PM.IMPN ---
Progress Note: A&P Assessment and Plan (1) Septicemia: Code(s): A41.9 - Sepsis, unspecified organism Status: Acute Assessment and Plan: Patient with sepsis on admission with tachycardia, leukocytosis, tachypnea, and now with positive BCx. CTA chest showing occluded RML and RLL occluded. Some of this is chronic. Suspected source of sepsis is PNA. BCx 08/04 growing Staph auricularis probably contaminant SpCx 08/05 NGTD BCx 08/06 NGTD Started on Rocephin and Azithromycin and Vancomycin added 08/06, changed to unasyn 08/[address] eval showing he needs soft and bite sized with Level 2 thickened liquids. 08/09: check PCT, CRP, leuk bumped a bit, but clinically looks much better 08/10: leuk continues to trend up, diff not impressive, no fevers, unsure of clinical significance--viral infection? Check COVID/RSV/flu, repeat PCT/CRP pending, resend urine and culture, CTA chest, abd, pelvis unremarkable for new developments, showed cont lung collapse, some pleural effusions, possible pyelo/bladder infection. pneumococcal ag found in urine. Unasyn changed to meropenem 08/11: leuk slightly improved on meropenem, cont this, monitor closely, clinically stable/improving 08/12: leuk much improved, cont meropenem 08/13: leuk unchanged, monitor, clinically appears worse? unsure etiology, prognosis guarded 08/14: leuk cont to fluctuate, clinically stable, likely needs home with hospice and DNR, discussed with family, they are thinking about it WBC better today. No fever. Continue IV abx. Thoracentesis concerning for empyema. Spoke with family about clinical course. The family wishes to transfer patient for further evaluation and treatment for the possible empyema. Spoke with Pulmonary who is making arrangements to transfer. (2) Normocytic anemia: Code(s): D64.9 - Anemia, unspecified Status: Acute Assessment and Plan: No recent HH to compare but normal last year. Hgb 10.3 on admission and has dropped today to 8.0 B12/Folate normal. Iron studies showing low TIBC and low iron. Ferritin 32 to suggest a component of iron deficiency. Continue Protonix. Continue iron as he tolerates. Check stool occult. 08/09: hgb dropped below 7, transfused 1 unit, improved to 8.7, eliquis and plavix on hold, unsure of etiology, stool occult still pending 08/11: stable, monitor 08/12: hgb dropped again, uncertain etiology, recheck this afternoon, consider GI vs hem/onc consult 08/13: improved to 8.5, monitor 08/14: back down to 7.7, unsure of etiology, monitor Hgb better today. Continue to monitor (3) Hypoxemia: Code(s): R09.02 - Hypoxemia Status: Acute Assessment and Plan: Patient found poorly responsive and hypoxic. Hypoxia better with high flow O2 to 15L. CXR showing complete collapse of right lung middle and lower lobe. Discussed with pulmonary, wean oxygen as tolerated, check stool occult. CXR and CTA 08/10 show continued collapse. Thoracentesis performed 08/14 Stable on home O2 (4) Community acquired pneumonia: Qualifiers: Laterality: left Lung location: lower lobe of lung Qualified Code(s): J18.9 - Pneumonia, unspecified organism Code(s): J18.9 - Pneumonia, unspecified organism Status: Acute Assessment and Plan: CTA chest also shows occluded RML and RLL with associated atelectasis as well as patchy LLL infiltrate/atelectasis and mild patchy lingular infiltrate. The RLL findings were seen by CT in 2020 though worse now. WBC was 24K. WBC trending down. BCx and Sputum culture as above Started on azithromycin and ceftriaxone for presumed pneumonia. Vancomycin added when positive BCx Legionella and pneumococcal antigens as well as mycoplasma IgM ordered. Continue scheduled bronchodilators. Mucinex and Cornet ordered to help mobilize secretions. Incentive spirometry encouraged. Pulmonology consulted and appreciate their input Weaned to 2L. Per pulmonary note, patient only on O2 at [facility]
[2023-08-15] MEDS: ENOXAPARIN 40 MG/0.4 ML SYRINGE SUB-Q (18:34)
[2023-08-15] MEDS: OLANZapine 5 MG TABLET BY MOUTH (20:22)
[2023-08-15] MEDS: ATORVASTATIN 40 MG TABLET PO (20:22)
[2023-08-15] MEDS: ALPRAZolam (*CRX) 0.25 MG TABLET PO (20:22)
--- NOTE | 2023-08-15 22:22 | PC.NURSE ---
JULIANNE NOTIFIED PT WILL BE TRANSFERRING TO [facility] PER [facility]
--- NOTE | 2023-08-16 00:28 | PC.NURSE ---
CALLED ABOUT PT LEAVING PER AMBULANCE
--- NOTE | 2023-08-16 00:41 | PC.NURSE ---
Ana called by ANY Layne and notified patient transferred to [facility] room 3092.
--- NOTE | 2023-08-16 07:02 | PM.TDS ---
Transfer Discharge Sum: Prov Provider Date of admission: 08/05/23 14:25 Primary care physician: Pio Chino MD Admitting clinician: Ko Singer MD Consults: 08/04/23 Consult to Physician Routine Comment: Consulting Provider: Ese Willis call center agent/MD group to consult: Pulmonology Reason for consultation: Right mid and lower lobe occlusion/atelectasis Has provider been notified: Yes 08/05/23 12:26 Consult to Physician Routine Comment: called exchange @1310 on 08/05 [facility] Consulting Provider: Yao Brown call center agent/MD group to consult: cardilogy Reason for consultation: elevated Trop Has provider been notified: Yes DS: Admitting Diagnosis Discharge Date 08/16/23 Admitting Diagnosis Chest pain DS: Discharge Diagnosis Discharge Diagnosis (1) Empyema lung: Code(s): J86.9 - Pyothorax without fistula Status: Acute (2) Septicemia: Code(s): A41.9 - Sepsis, unspecified organism Status: Acute (3) Normocytic anemia: Code(s): D64.9 - Anemia, unspecified Status: Acute (4) Hypoxemia: Code(s): R09.02 - Hypoxemia Status: Acute (5) Community acquired pneumonia: Qualifiers: Laterality: left Lung location: lower lobe of lung Qualified Code(s): J18.9 - Pneumonia, unspecified organism Code(s): J18.9 - Pneumonia, unspecified organism Status: Acute (6) Elevated troponin: Code(s): R79.89 - Other specified abnormal findings of blood chemistry Status: Acute (7) Atelectasis of right lung: Code(s): J98.11 - Atelectasis Status: Acute (8) Chronic obstructive pulmonary disease: Code(s): J44.9 - Chronic obstructive pulmonary disease, unspecified Status: Acute (9) Hypertension: Code(s): I10 - Essential (primary) hypertension Status: Acute (10) Obstructive sleep apnea: Code(s): G47.33 - Obstructive sleep apnea (adult) (pediatric) Status: Acute (11) Peripheral vascular disease: Code(s): I73.9 - Peripheral vascular disease, unspecified Status: Acute (12) Pulmonary embolism: Qualifiers: Acute cor pulmonale presence: without acute cor pulmonale Chronicity: acute Pulmonary embolism type: unspecified Qualified Code(s): I26.99 - Other pulmonary embolism without acute cor pulmonale Code(s): I26.99 - Other pulmonary embolism without acute cor pulmonale Status: Acute Transfer Discharge Sum: Med Medications Active and Home Medications: Home Medications acetaminophen 325 mg capsule 325 mg PO Q6H PRN Pain 08/26/19 [History Confirmed 08/04/23] ascorbic acid (vitamin C) 500 mg capsule 500 mg PO DAILY 08/26/19 [History Confirmed 08/04/23] cholecalciferol (vitamin D3) 50 mcg (2,000 unit) tablet 2,000 unit PO DAILY 08/26/19 [History Confirmed 08/04/23] ferrous sulfate 324 mg (65 mg iron) tablet,delayed release 324 mg PO BID 08/26/19 [History Confirmed 08/04/23] multivitamin with iron 1 tablet PO DAILY 08/26/19 [History Confirmed 08/04/23] zinc gluconate 50 mg tablet 50 mg PO DAILY 08/26/19 [History Confirmed 08/04/23] olanzapine 2.5 mg tablet See Rx Instructions .Route .COMPLEX #90 tabs 10/18/22 [Rx Confirmed 08/04/23] diazepam 5 mg tablet 5 mg PO BID PRN sleep #20 tabs 12/12/22 [Rx Confirmed 08/04/23] furosemide 20 mg tablet See Rx Instructions .Route .COMPLEX #90 tabs 02/26/23 [Rx Confirmed 08/04/23] simvastatin 10 mg tablet See Rx Instructions .Route .COMPLEX #90 tabs 02/26/23 [Rx Confirmed 08/04/23] clopidogrel 75 mg tablet See Rx Instructions .Route .COMPLEX #90 tabs 03/06/23 [Rx Confirmed 08/04/23] Anoro Ellipta 62.5 mcg-25 mcg/actuation powder for inhalation (umeclidinium-vilanterol) 1 inh inhalation Q24H #60 ea 06/08/23 [Rx Confirmed 08/04/23] metoprolol tartrate 25 mg tablet See Rx Instructions .Route .COMPLEX #45 tabs 06/28/23 [Rx Confirmed 08/04/23] potassium chloride 10 mEq capsule,extended release See Rx Instruction
== END 2023-08-16 00:30 | disposition short-term general hospital (02) | DRG 871 ==
LOC: ANHED 10:33 → ANH3MED 17:02 → ANHIMU 08-05 15:10 → ANH2MED 08-09 18:44
PROVIDERS: Internal Medicine; Internal Medicine Critical Care Medicine; Internal Medicine Pulmonary Disease; Physician Assistant; Student in an Organized Health Care Education/Training Program; Admitting Provider Internal Medicine; Emergency Provider Physician Assistant; PCP Emergency Medicine; Visit Provider Internal Medicine
DX: A41.9 Sepsis, unspecified organism (principal); E43 Unspecified severe protein-calorie malnutrition; J86.9 Pyothorax without fistula; I21.A1 Myocardial infarction type 2; J18.9 Pneumonia, unspecified organism; J98.11 Atelectasis; Z68.1 Body mass index [BMI] 19.9 or less, adult; A49.01 Methicillin susceptible Staphylococcus aureus infection, unspecified site; J43.2 Centrilobular emphysema; D64.9 Anemia, unspecified; E78.5 Hyperlipidemia, unspecified; E87.8 Other disorders of electrolyte and fluid balance, not elsewhere classified; E87.6 Hypokalemia; F41.9 Anxiety disorder, unspecified; G47.33 Obstructive sleep apnea (adult) (pediatric); I10 Essential (primary) hypertension; I73.9 Peripheral vascular disease, unspecified; M43.6 Torticollis; M10.9 Gout, unspecified; Z98.49 Cataract extraction status, unspecified eye; Z91.199 Patient's noncompliance with other medical treatment and regimen due to unspecified reason; Z89.611 Acquired absence of right leg above knee; Z87.891 Personal history of nicotine dependence; Z99.81 Dependence on supplemental oxygen; Z20.822 Contact with and (suspected) exposure to COVID-19; Z79.02 Long term (current) use of antithrombotics/antiplatelets
CPT/HCPCS: 32555; 36415; 36430; 36600; 71045; 71275; 74177; 80048; 80053; 80061; 80069; 80074; 80076; 80202; 81001; 82607; 82728; 82746; 82805; 82948; 83540; 83550; 83605; 83615; 83690; 83735; 83880; 83986; 84100; 84145; 84155; 84439; 84443; 84480; 84484; 85014; 85018; 85025; 85055; 85610; 85730; 86140; 86738; 86850; 86880; 86900; 86901; 86902; 86922; 87015; 87040; 87070; 87075; 87077; 87081; 87086; 87102; 87116; 87186; 87205; 87206; 87449; 87636; 87637; 87899; 89051; 92610; 93005; 93306; 93970; 94640; 94667; 94668; 96365; 96366; 96367; 96368; 97161; 97165; 97530; 99285; A9270; G0378; J0295; J0456; J0696; J1644; J1650; J2020; J2185; J3370; J3480; J7040; P9016; Q9967